=== PATIENT | male | born 1940 | race Caucasian/White ===

== ENCOUNTER 2016-09-25 09:08 | Inpatient (IN) ==
[2016-09-25] MEDS ORDERED: ONDANSETRON 4 MG/2 ML VIAL IV STA (09:48)
[2016-09-25] MEDS ORDERED: SODIUM CHLORIDE 0.9% 500 ML IV STA (09:48)
--- NOTE | 2016-09-25 10:08 | XRay Report ---
History: Abdominal pain Date: 09/25/2016 Study: Chest x-ray single view portable Comparison exam: No previous currently available There is cardiomegaly. There is no gross mediastinal mass. The pulmonary vasculature is not grossly engorged. Shallow breath. There is no gross pleural effusion. There is some mild platelike subsegmental atelectasis in the lung bases. There is no eduardo pneumonia. There is mild thoracic spondylosis. Impression: Platelike subsegmental atelectasis in the lung bases. Cardiomegaly without overt CHF PROCEDURE INTERPRETED AT [facility] DEPARTMENT OF RADIOLOGY Final Report Signed by: Dr. Ellen Borjas
[2016-09-25 10:20] LABS: Apearance,Urine CLEAR (Clear); Blood, Urine Moderate mg/dL (Negative); Glucose,Urine (UA) Negative (Negative); Ketones,Urine Negative (Negative); Mucus,Urine Occasional /LPF (Occasional); Nitrite,Urine Negative (Negative); Protein,Urine 100 MG/DL; RBC,Urine 51 /HPF (0-4); Urine Color Amber (Yellow); Urine Specific Gravity 1.019 (1.001-1.035); WBC,Urine 1 /HPF (0-6)
[2016-09-25 10:21] LABS: Bilirubin,Urine Small mg/dL (Negative)
--- NOTE | 2016-09-25 10:25 | EKG Report ---
Stationary ECG Study [facility] Test Date: 09/25/2016 10:25:52 AM Pat Name: JOHANNE CLARKE Department: Room: Gender: M Sas Bi Developer: : 1940 Requested by: James Montemayor Order Number: [id number] Reading MD: ERIC WEI Intervals [place] Rate: 109 P: 17 OK: 170 QRS: -2 QRSD: 133 T: 65 QT: 363 QTc: 427 Interpretive Statements SINUS TACHYCARDIA RIGHT BUNDLE BRANCH BLOCK Electronically Signed On 09-25-16 16:33:35 CDT by ERIC WEI [email or web address]
[2016-09-25] MEDS ORDERED: ONDANSETRON 4 MG/2 ML VIAL ONE (10:28)
[2016-09-25 10:41] LABS: Basophils % 0.2 % (0.0-0.8); Hematocrit 47.5 VOL% (42.0-52.0); Hemoglobin 15.8 GM/DL (14.0-18.0); Immature Granulocytes % 1.4 %; Immature Granulocytes Absolute 0.22 #; Lymphocytes # 0.6 10*3/uL (1.4-4.0); Mean Corpuscular HGB Conc 33.3 GM/DL (32-36); Mean Corpuscular Hemoglobin 28 PG (27-34); Mean Corpuscular Volume 84.8 FL (87-102); Mean Platelet Volume 13.6 FL (9.6-12.0); Monocytes # 0.8 10*3/uL (0.11-0.8); Monocytes % 5.4 % (1.7-12.7); Neutrophils # 13.5 10*3/uL (1.4-7.4); Platelet Count 112 T/CUMM (130-400); White Blood Count 15.2 T/CUMM (4-12)
[2016-09-25 10:59] LABS: Band Neutrophils 4 % (0-10); Hypochromasia 1+; Lymphocytes 4 % (20-55); Platelet Estimate Decreased; Segmented Neutrophils 89 % (50-85); Total Cells Counted 100
--- NOTE | 2016-09-25 11:24 | CT Report ---
History: Abdominal distention and rebound pain Date: 09/25/2016 Study: CT abdomen and pelvis without contrast Comparison exam: No previous CT abdomen and pelvis Technique: Spiral CT sections were obtained from the lung bases to the pubic symphysis without contrast. The CT exam was performed using one or more of the following dose reduction techniques: Automated exposure control, adjustment of the mA and/or kV according to patient size, or use of iterative reconstruction technique. There is some mild dependent atelectatic change in the lower lungs. There is no evidence of pneumoperitoneum. The gallbladder is surgically absent. There is a water density lobular lesion in the posterior medial aspect of the right lobe of the liver inferiorly, likely a 17 mm hepatic cyst. The liver, spleen, and bile ducts are otherwise unremarkable. There is strandy and hazy opacity in the peripancreatic fat. There is no focal pancreatic mass. There is no focal adrenal mass. There is a medium density opacity compatible with hematoma measuring 9 x 7 x 12 cm, medial to the right kidney. This displaces the right kidney laterally. This is intimately associated with the superior pole of the right kidney and also abuts the dorsal aspect of the duodenum. There is no hydronephrosis or hydroureter. There is no definite radiopaque renal or ureteral stone. There is no aneurysm of the moderately calcified abdominal aorta. The presumed retroperitoneal hemorrhage does not immediately abut the abdominal aorta. Fluid abuts the tip of the cecum. The appendix is not seen with confidence. There is medium density fluid in the pelvis to the right of the midline, likely hemorrhagic fluid, which measures up to 11 x 11 x 5 cm in maximum dimensions. This displaces the sigmoid colon to the left. The bladder is decompressed. A Marrero catheter is positioned with its balloon within the lumen of the urinary bladder. Critical test result. Findings discussed with Dr. Saleh. Impression: Retroperitoneal hemorrhage which is primarily in the right perinephric space and displaces the right kidney laterally. This could be spontaneous or related to bleeding from an occult renal lesion. Posttraumatic bleeding is another diagnostic consideration. There is some strandy and hazy opacity in the peripancreatic fat such as that which could be related to recent or current pancreatitis. Hemorrhagic pancreatitis would also be in the differential diagnosis. There is no hydronephrosis or radiopaque ureteral stone. PROCEDURE INTERPRETED AT [facility] DEPARTMENT OF RADIOLOGY Final Report Signed by: Dr. Ellen Borjas
--- NOTE | 2016-09-25 11:38 | General Surgery Consult Note ---
Assessment and Plan (1) Nontraumatic retroperitoneal hematoma Status: Acute Assessment and plan: This patient has a retroperitoneal hematoma that is adjacent to the right kidney and also a separate collection of blood in the pelvis which is extraperitoneal. This seems most likely to have come from a source in his right kidney especially with his history of a problem indicating the Dr. Silveira had seen him for this could represent hemorrhage from a lesion in the kidney that ruptured such as a cyst or hemangioma. This will probably not require any surgical intervention but the question of whether he would need to have an arteriogram to embolize any active bleeding remains to be answered. What I would suggest would be admission with bedrest and urology consultation and trend his hemoglobins. If he seems to be worsening when I think we should consider an arteriogram but his chemistry is not back yet to give us any input on his creatinine and he certainly has had decreased urine output at home and may have compromised renal function already so I think we may be able to avoid an arteriogram given that this is a retroperitoneal hematoma in my seal on its own. It is slightly further complicated by the fact that there may be an underlying renal lesion which may have bled and this might be less likely to stop bleeding without some sort of intervention but this may be further clarified by getting urologic consultation to see what his history actually is. The family is unable to provide exact details. I will continue to follow him and assist with coordinating his care but there are no plans for any surgical intervention. The patient had his gallbladder removed at [facility] in June I think is very unlikely that he is having any problems related to that given that it was 3 months ago and the findings of his CT scan. Current Visit: Yes History of Present Illness Chief complaint: Abdominal pain with bloating History of present illness: Mr. Aguilera is a 76 year old male who has been followed by Dr. Silveira at [facility] for some sort of renal lesion presents to the hospital with several days to a week of worsening abdominal pain and decreased urine output as well as bloating in the abdomen. His family brought him to the hospital today for evaluation and he was noted to have a normal hemoglobin but his white blood cell count was up at 15,000. His urine demonstrated some bilirubinuria and he was evaluated with a CT scan noncontrast which demonstrated a large retroperitoneal hematoma medial to the right kidney and also a separate hematoma down in the pelvis displacing the bladder anteriorly. There is no layering that suggested active hemorrhage. He also had some stranding changes around his pancreas. His chemistry is still pending right now. He is hemodynamically normal at this time and actually hypertensive. Home Medications Medication Instructions Recorded Confirmed Type Allopurinol 200 mg PO DAILY 09/25/16 09/25/16 History Aspirin [Aspirin EC] 81 mg PO DAILY 09/25/16 09/25/16 History Cholecalciferol [Vitamin D3] 1,000 unit PO BEDTIME 09/25/16 09/25/16 History Colchicine [Colcrys] 0.6 mg PO ONCE PRN 09/25/16 09/25/16 History Cyclobenzaprine [Flexeril] 10 mg PO BEDTIME PRN 09/25/16 09/25/16 History Diclofenac 1% Gel [Voltaren 1% Gel] 1 applic TOP QID PRN 09/25/16 09/25/16 History Dorzolamide HCl/Timolol Maleat 1 drop BOTH EYES BEDTIME 09/25/16 09/25/16 History [Dorzolamide/Timolol Oph Soln] Hydrocodone/Acetaminophen [[place] 1 each PO Q6H PRN 09/25/16 09/25/16 History 7.5-325 Tablet] Levothyroxine Tab [Synthroid Tab] 50 mcg PO DAILY 09/25/16 09/25/16 History Metoprolol Tartrate Tab [Lopressor 100 mg PO BID 09/25/16 09/25/16 History Tab] [place]-3 Fatty Acids [Fish Oil 1,000 mg PO BID 09/25/16 09/25/16 History Concentrate] Pantoprazole Tab [Protonix Tab] 40 mg PO DAILY 09/25/16 09/25/16 History Pitavastatin [Livalo] 2 mg PO BEDTIME 09/25/16 09/25/16 History Terazosin [Hytrin] 5 mg PO BEDTIME 09/25/16 09/25/16 History amLODIPine [Norvasc] 10 mg PO DAILY 09/25/16 09/25/16 History Allergies Allergy/AdvReac Type Severity Reaction Status Date / Time Penicillins Allergy RASH Verified 09/25/16 09:24 Medical,Surgical,& Family Hx - Medical History Cardio: History of: Hypertension - Surgical History Abdominal Surgeries: Surgical HX of: Cholecystectomy Orthopedic Surgeries: Surgical HX of;: Spinal Surgery (Lumbar) - Social History Smoking Status: Never smoker - Constitutional Constitutional: Present: as per HPI - EENT Nose, mouth and throat: Present: as per HPI - Cardiovascular Cardiovascular: Present: as per HPI - Respiratory Respiratory: Present: as per HPI - Gastrointestinal Gastrointestinal: Present: as per HPI - Genitourinary Genitourinary: Present: as per HPI - Musculoskeletal Musculoskeletal: Present: as per HPI - Neurological Neurological: Present: as per HPI - Endocrine Endocrine: Present: as per HPI Hematologic/Lymphatic: Present: as per HPI Exam - Constitutional Vitals: Period Temp Pulse Resp BP Sys/Philippe Pulse Ox Last 24 Hr 97.2 F-97.2 F 107-107 18-18 163-163/89-89 91 General appearance: no acute distress, over weight - Head Head exam: Present: normal inspection, normocephalic - Eye Eye exam: Present: EOMI Pupils: Present: RAÚL - ENT ENT exam: Present: normal exam Mouth exam: Present: normal external inspection, normal voice - Neck Neck exam: Present: normal inspection, trachea midline - Respiratory Respiratory exam: Present: clear to auscultation bilaterally. Absent: accessory muscle use, chest wall tenderness - Cardiovascular Cardiovascular exam: Present: tachycardia. Absent: irregular rhythm, systolic murmur - GI/Abdominal GI/Abdominal exam: Present: hypoactive bowel sounds, tenderness, soft. Absent: distended, guarding, rebound - Extremities Exam Extremities exam: Present: normal inspection, normal capillary refill - Back Exam Back exam: Present: normal inspection - Neurological Exam Neurological exam: Present: alert, oriented X3 Speech: Present: normal - Skin Skin exam: Present: normal color, warm Results - Labs CBC & BMP: 09/25/16 10:10 - Diagnostic Findings Procedure: CT Abdomen and Pelvis: image reviewed by me, report reviewed by me
[2016-09-25 11:47] LABS: Albumin 3.6 G/DL (3.4-5.0); Bilirubin,Total 11.2 MG/DL (0.2-1.0); Calcium 8.5 MG/DL (8.5-10.1); Magnesium 1.8 MG/DL (1.8-2.4); Osmolality,Calculated 274.1 MOS/KG (273-304); Potassium 4.4 MMOL/L (3.5-5.1); Total Protein 7.1 G/DL (6.4-8.3)
--- NOTE | 2016-09-25 11:56 | Emergency Department Note ---
Alexis Kee Gwan, am scribing for, and in the presence of, James Saleh MD 09:55. Therese Kee Phillip K, MD, personally performed the services described in this documentation, ascribed by Pro Espinoza in my presence, and it is both accurate and complete . Arrival - Arrival Chief Complaint: Abdominal / Flank Pain Stated Complaint: Dr. Jeronimo sent over,kidney not working,yellow ED Nursing Triage Note: Pt sent by Dr Jeronimo for Jaundice with some abd pain worse with coughing. Pt had Gallbladder surgery Dr Carlos back in Jun. Mode of Arrival: Wheelchair Limitations: No Limitations Source: Patient, Family, Old Records Reviewed, RN Notes Reviewed Time Seen by Provider: 09/25/16 09:34 - History of Present Illness HPI Narrative: Pt is 76 y/o male who presents to the ED for further evaluation. Patient was present at PCP Dr. Jeronimo for abd pain and coughing with an onset yesterday. After further evaluation pt was prompted to report to ED. Family noted that pt began N/V,had onset of abd edema, pain in lower abd, inability to void, lack of fluid intake and decreased appetite with an onset yesterday. Patient confirmed that pain is worse with movement, that he has had this pain in the past and that his last BM was 4-5 days ago. Family confirmed that pt had a Chloecystectomy 06/[address] Carlos. Patient has been followed by [facility] in the past. No other problems/complaints reported in ED. Onset (ago): day(s) Consistency: constant Severity: moderate Allergies/Adverse Reactions: Allergies Allergy/AdvReac Type Severity Reaction Status Date / Time Penicillins Allergy RASH Verified 09/25/16 09:24 Home Medications: Home Medications Medication Instructions Recorded Confirmed Type Allopurinol 200 mg PO DAILY 09/25/16 09/25/16 History Aspirin [Aspirin EC] 81 mg PO DAILY 09/25/16 09/25/16 History Cholecalciferol [Vitamin D3] 1,000 unit PO BEDTIME 09/25/16 09/25/16 History Colchicine [Colcrys] 0.6 mg PO ONCE PRN 09/25/16 09/25/16 History Cyclobenzaprine [Flexeril] 10 mg PO BEDTIME PRN 09/25/16 09/25/16 History Diclofenac 1% Gel [Voltaren 1% Gel] 1 applic TOP QID PRN 09/25/16 09/25/16 History Dorzolamide HCl/Timolol Maleat 1 drop BOTH EYES BEDTIME 09/25/16 09/25/16 History [Dorzolamide/Timolol Oph Soln] Hydrocodone/Acetaminophen [[place] 1 each PO Q6H PRN 09/25/16 09/25/16 History 7.5-325 Tablet] Levothyroxine Tab [Synthroid Tab] 50 mcg PO DAILY 09/25/16 09/25/16 History Metoprolol Tartrate Tab [Lopressor 100 mg PO BID 09/25/16 09/25/16 History Tab] [place]-3 Fatty Acids [Fish Oil 1,000 mg PO BID 09/25/16 09/25/16 History Concentrate] Pantoprazole Tab [Protonix Tab] 40 mg PO DAILY 09/25/16 09/25/16 History Pitavastatin [Livalo] 2 mg PO BEDTIME 09/25/16 09/25/16 History Terazosin [Hytrin] 5 mg PO BEDTIME 09/25/16 09/25/16 History amLODIPine [Norvasc] 10 mg PO DAILY 09/25/16 09/25/16 History Review of System - Review of System 12 point system: reviewed and no additional remarkable complaints except as stated - Review of System Constitutional: Absent: chills, fever Eyes: Absent: discharge Head/Ears/Nose/Throat: Absent: earache Respiratory: Absent: cough Cardiovascular: Absent: chest pain Gastrointestinal: Present: as per HPI, abdominal pain, nausea, vomiting. Absent : diarrhea Musculoskeletal: Absent: arm pain, back pain Medical,Surgical,& Family Hx - Medical History Cardio: History of: Hypertension - Surgical History Abdominal Surgeries: Surgical HX of: Cholecystectomy Orthopedic Surgeries: Surgical HX of;: Spinal Surgery (Lumbar) - Social History Smoking Status: Never smoker Exam Vital Signs: Vital Signs Temperature 97.2 F L 09/25/16 09:15 Pulse Rate 107 H 09/25/16 09:15 Respiratory Rate 18 09/25/16 09:15 Blood Pressure 163/89 09/25/16 09:15 O2 Sat by Pulse Oximetry 91 L 09/25/16 09:15 - General General appearance: alert, in no apparent distress - Head Head exam: Present: atraumatic, normocephalic - Eye Eye exam: Present: scleral icterus - ENT ENT exam: Present: normal oropharynx, mucous membranes moist, TM's normal bilaterally, normal external ear exam - Neck Neck exam: Present: full ROM, trachea midline. Absent: tenderness - Chest Chest inspection: Present: symmetric chest wall rise. Absent: tenderness - Respiratory Respiratory exam: Present: normal lung sounds bilaterally. Absent: respiratory distress - Cardiovascular Cardiovascular exam: Present: normal rhythm, tachycardia - Abdominal Exam Abdominal exam: Present: distention, rebound, hypoactive bowel sounds, other ( Tinkling/high pitched bowel sounds) - Extremities Exam Extremities exam: Present: full ROM - Back Exam Back exam: Present: full ROM - Neurological Exam Neurological exam: Present: alert, oriented X3, CN II-XII intact. Absent: motor sensory deficit - Psychiatric Psychiatric exam: Present: flat affect - Skin Skin exam: Present: other (Jaundice tint to skin) Course Course Narrative: Marrero catheter was placed and after trying to void, pt had 500cc of residual urine. Results - Labs CBC & BMP: 09/25/16 10:10 09/25/16 10:10 Lab Results: I have reviewed the patients labs Labs: Laboratory Tests 09/25/16 10:10 Urine pH 6.0 Ur Specific [place] 1.019 Urine Protein 100 Urine Blood Moderate Urine Bilirubin Small H Urine Urobilinogen 4.0 H Urine RBC 51 Urine WBC 1 Urine Mucus Occasional Laboratory Tests 09/25/16 09/25/16 10:10 10:10 WBC 15.2 H RBC 5.60 H Hgb 15.8 Hct 47.5 MCV 84.8 L Plt Count 112 L MPV 13.6 H Neut % (Auto) 89.0 H Lymph % (Auto) 4.0 L Neut # (Auto) 13.5 H Lymph # (Auto) 0.6 L Urine pH 6.0 Ur Specific [place] 1.019 Urine Protein 100 Urine Blood Moderate Urine Bilirubin Small H Urine Urobilinogen 4.0 H Urine RBC 51 Urine WBC 1 Urine Mucus Occasional Laboratory Tests 09/25/16 10:10 WBC 15.2 H RBC 5.60 H Hgb 15.8 Hct 47.5 MCV 84.8 L Plt Count 112 L MPV 13.6 H Neut % (Auto) 89.0 H Lymph % (Auto) 4.0 L Neut # (Auto) 13.5 H Lymph # (Auto) 0.6 L Segmented Neutrophils 89 H Lymphocytes 4 L - EKG EKG results: interpreted by ERMD, sinus rhythm (Sinus tachycardia, right bundle branch block) - Diagnostic Findings Procedure: Chest x-ray: report reviewed by me (Platelike subsegmental atelectasis in the lung bases. Cardiomegaly without overt CHF. ) Disposition Clinical Impression: Retroperitoneal hematoma, Urinary retention, Possible hemorrhagic pancreatitis Case discussed with: patient, patient's family Disposition: Still a Patient Condition: Critical Additional Instructions: Admit to ICU to the hospitalist with a surgery consult.
[2016-09-25] MEDS ORDERED: SODIUM CHLORIDE 0.9% 1,000 ML IV STA (12:02)
--- NOTE | 2016-09-25 12:56 | Hospitalist History & Physical ---
Assessment and Plan (1) Hypertension Status: Chronic Assessment and plan: Possible mild nephrosclerosis Current Visit: Yes Qualifiers: Hypertension type: essential hypertension Qualified Code(s): I10 - Essential (primary) hypertension (2) Retroperitoneal hematoma Status: Acute Assessment and plan: This appears to originate in the area of the right kidney with pelvic extension. Duration is undefined however history suggests a gradual bleeding process. This is supported by the elevated total bilirubin likely reflective of resorptive change. It is unclear at this time to what extent the AST and ALT as well as a lipase reflect mechanical effect of the hematoma in the retroperitoneum. Current Visit: Yes History of Present Illness History of present illness: Mr. Aguilera is a 76 year old male he noted the onset of abdominal pain in June. He presented to the emergency room rash. The family reports that he was told at that time he had "heart failure" (I suspect this was based on a BNP reading) and "kidney failure". He proceeded to laparoscopic cholecystectomy during that hospital stay. Apparently no cardiac workup was undertaken with the family recalls. He has had a history of some type of perinephric process which is poorly characterized by the family's description had gross hematuria several years previously and was found to have this lesion. He was told at [facility] on June hospitalization that it was larger than previously but was not a new finding or concern. It is unclear whether the patient ever resolved abdominal discomfort to any significant degree. He noticed over the last several weeks increasing levels of abdominal pain. Approximately 1 week ago he began to cough and with coughing with noticed a marked increase in the severity of abdominal pain. He developed obstipation and difficulty voiding. He felt chilled but did not take his temperature. Over the weekend he developed nausea and vomiting. Any movement caused increased abdominal discomfort. He presented to the emergency room today as the symptoms had not resolved. He denies any history of peptic ulcer disease or reflux symptomatology or melena or hematochezia. Patient uses no [id number] medications he does not list any anticoagulants on his regimen. He recalls no trauma. CT scan of his abdomen performed in the emergency department here demonstrates a apparent accumulation of blood adjacent to the right kidney with a separate collection in the dependent portion of the pelvis that distorts the sigmoid colon and likely the bladder is well. Home Medications Medication Instructions Recorded Confirmed Type Allopurinol 200 mg PO DAILY 09/25/16 09/25/16 History Aspirin [Aspirin EC] 81 mg PO DAILY 09/25/16 09/25/16 History Cholecalciferol [Vitamin D3] 1,000 unit PO BEDTIME 09/25/16 09/25/16 History Colchicine [Colcrys] 0.6 mg PO ONCE PRN 09/25/16 09/25/16 History Cyclobenzaprine [Flexeril] 10 mg PO BEDTIME PRN 09/25/16 09/25/16 History Diclofenac 1% Gel [Voltaren 1% Gel] 1 applic TOP QID PRN 09/25/16 09/25/16 History Dorzolamide HCl/Timolol Maleat 1 drop BOTH EYES BEDTIME 09/25/16 09/25/16 History [Dorzolamide/Timolol Oph Soln] Hydrocodone/Acetaminophen [[place] 1 each PO Q6H PRN 09/25/16 09/25/16 History 7.5-325 Tablet] Levothyroxine Tab [Synthroid Tab] 50 mcg PO DAILY 09/25/16 09/25/16 History Metoprolol Tartrate Tab [Lopressor 100 mg PO BID 09/25/16 09/25/16 History Tab] [place]-3 Fatty Acids [Fish Oil 1,000 mg PO BID 09/25/16 09/25/16 History Concentrate] Pantoprazole Tab [Protonix Tab] 40 mg PO DAILY 09/25/16 09/25/16 History Pitavastatin [Livalo] 2 mg PO BEDTIME 09/25/16 09/25/16 History Terazosin [Hytrin] 5 mg PO BEDTIME 09/25/16 09/25/16 History amLODIPine [Norvasc] 10 mg PO DAILY 09/25/16 09/25/16 History Allergies Allergy/AdvReac Type Severity Reaction Status Date / Time Penicillins Allergy RASH Verified 09/25/16 09:24 Medical,Surgical,& Family Hx - Medical History Cardio: History of: Hypertension (10-15 years duration) Endocrine: History of: Thyroid Disorder (Chronic thyroid replacement) Rheumatology: History of;: Gout (He is on allopurinol with as needed colchicine) Genitourinary: History of: Problems (Apparently there is a previously identified perinephric lesion) Gastrointestinal: History of: GI Problems (He denies symptoms but is on Protonix chronically) Musculoskeletal: History of: Degenerative Disk Disease - Surgical History HEENT Surgeries: Surgical HX of: Eye Surgery (Cataracts are) Abdominal Surgeries: Surgical HX of: Cholecystectomy (June 2016) Orthopedic Surgeries: Surgical HX of;: Spinal Surgery (Lumbar) - Social History Smoking Status: Never smoker Frequency of Alcohol Use: None - Constitutional Constitutional: Present: anorexia, chills. Absent: fever(s) - Cardiovascular Cardiovascular: Absent: chest pain at rest, chest pain with activity, dyspnea, dyspnea on exertion, edema, palpitations - Respiratory Respiratory: Present: cough. Absent: dyspnea, wheezing - Gastrointestinal Gastrointestinal: Present: abdominal pain, bloating, constipation, nausea. Absent: dyspepsia, dysphagia, heartburn, hematemesis, hematochezia, melena - Genitourinary Genitourinary: Present: difficulty urinating - Musculoskeletal Musculoskeletal: Present: back pain - Neurological Neurological: Present: confusion, convulsions. Absent: syncope Exam - Constitutional General appearance: normal weight, mild distress - Neck Neck exam: Absent: lymphadenopathy, thyromegaly - Respiratory Respiratory exam: Present: clear to auscultation bilaterally. Absent: rales, rhonchi, wheezes - Cardiovascular Cardiovascular exam: Present: carotid bruit (Right carotid), gallop (S4), regular rate and rhythm - GI/Abdominal GI/Abdominal exam: Present: hypoactive bowel sounds, tenderness (Left lower quadrant), other (No intra-abdominal bruits are noted). Absent: ascites, distended, organomegaly - Extremities Exam Extremities exam: Absent: edema - Neurological Exam Neurological exam: Present: alert, oriented X3 Results - Labs CBC & BMP: 09/25/16 10:10 09/25/16 10:10 Labs: Total bilirubin 11.2 AST 162/ALT 167 Lipase 36,160 Urinalysis positive red blood cell, protein 100. and urobilinogen 4.0 - Impressions Sinus rhythm with sinus tachycardia right bundle branch block pattern - Diagnostic Findings Procedure: Chest x-ray: image reviewed by me (Low volume with linear atelectasis left greater than right), CT Abdomen and Pelvis: report reviewed by me (Perinephric and pelvic hematoma)
[2016-09-25] MEDS ORDERED: ONDANSETRON 4 MG/2 ML VIAL IV PRN (13:09)
[2016-09-25] MEDS ORDERED: MORPHINE 2 MG/1 ML SYRINGE IV PRN ×2 (13:20→13:25)
[2016-09-25] MEDS: SODIUM CHLORIDE 0.9% 1,000 ML IV SCH ×2 (13:45→20:55)
[2016-09-25] MEDS: PANTOPRAZOLE 40 MG VIAL IV SCH ×2 (14:54→20:47)
[2016-09-25] MEDS: PROPRANOLOL 1 MG/1 ML VIAL IV SCH ×2 (14:54→20:47)
[2016-09-25 15:49] LABS: INR 1.2; PT Patient Result 13.3 SECS; Partial Thromboplastin Time 29.2 SECS (0-40)
--- NOTE | 2016-09-25 16:02 | Event Note ---
The patient did have a lipase of 36,000 and his bilirubin came back at 11 with a direct bilirubin of over 5. It is unclear what exactly his surgical history was at [facility] in June of this year but because of these lab values of come back and some stranding around his pancreas is definitely possible, although the appearance is atypical on the CT scan, but this could be some evidence of hemorrhagic pancreatitis. Patient is having some increased tachycardia and tachypnea. We will get GI consultation in case of the need for an ERCP but I think for now the best thing to do is just continue IV fluid resuscitation and pain control and monitor his resuscitation repeat his labs tomorrow. I will also attempt to get records from [facility] about the details of his hospitalization and his cholecystectomy. It certainly possible there could be a retained stone causing the bile duct to be obstructed and also obstructing the pancreatic duct although there is no ductal dilation on his CT scan that I can see. He will need to be watched closely in ICU and resuscitated.
[2016-09-25] MEDS ORDERED: ENALAPRIL 2.5 MG/2 ML VIAL IV PRN (16:29)
[2016-09-25] MEDS: cloNIDine 0.3 MG/24 HR PATCH TRANSDERM SCH (17:27)
[2016-09-25 17:59] LABS: Allen Test Positive; Pt O2 Delivery Device Venturi Mask
[2016-09-25 18:00] LABS: ABG Base Excess -2.2 MMOL/L (-2.5-2.5); ABG HCO3 22.5 MMOL/L (20-26); ABG Oxygen Saturation 94.9 % (95-100); ABG PCO2 35.3 MM HG (35-48); ABG PH 7.401 (7.35-7.45); ABG PO2 77.4 MM HG (80-95)
--- NOTE | 2016-09-25 19:02 | Gastrointestinal Consult Note ---
Assessment and Plan (1) Acute pancreatitis Status: Acute Assessment and plan: Ill-appearing patient with jaundice and evidence of acute pancreatitis. Does not have biliary dilatation on CT but concern would be common bile duct stone precipitating this. Would add IV quinolone with suggestion of possible pancreatic necrosis (patient allergic to penicillin). Discussed with patient and his family. ERCP would be recommended in this setting and would probably do within the next 24 hours if clinical picture does not change. I did discuss the procedure with him and family including potential risks and benefits including worsening of pancreatitis. Current Visit: Yes History of Present Illness Chief complaint: Abdominal pain History of present illness: Mr. Aguilera is a 76 year old male admitted with complaint of upper abdominal pain and nausea increased in the last couple of days. He is a poor historian but states that he has had some upper abdominal pain and generally has felt bad for around 2 weeks. On admission, patient is noted to have serum lipase above 30,000 with elevated liver tests including total bilirubin 11. He had laparoscopic cholecystectomy around 3 months ago at [facility] and per verbal report did have some elevated liver test around the time of that surgery. We do not have those records as yet to review. Patient states that his weight has been stable. CT abdomen is reviewed which is a noncontrast study due to renal insufficiency. Patient states that he has had some chills in the last 24 hours. Urine has been dark the last day or 2. Home Medications Medication Instructions Recorded Confirmed Type Allopurinol 200 mg PO DAILY 09/25/16 09/25/16 History Aspirin [Aspirin EC] 81 mg PO DAILY 09/25/16 09/25/16 History Cholecalciferol [Vitamin D3] 1,000 unit PO BEDTIME 09/25/16 09/25/16 History Colchicine [Colcrys] 0.6 mg PO Q6H PRN 09/25/16 09/25/16 History Cyclobenzaprine [Flexeril] 10 mg PO BEDTIME PRN 09/25/16 09/25/16 History Diclofenac 1% Gel [Voltaren 1% Gel] 1 applic TOP QID PRN 09/25/16 09/25/16 History Dorzolamide HCl/Timolol Maleat 1 drop BOTH EYES BEDTIME 09/25/16 09/25/16 History [Dorzolamide/Timolol Oph Soln] Hydrocodone/Acetaminophen [[place] 1 each PO Q6H PRN 09/25/16 09/25/16 History 7.5-325 Tablet] Levothyroxine Tab [Synthroid Tab] 50 mcg PO DAILY 09/25/16 09/25/16 History Metoprolol Tartrate Tab [Lopressor 100 mg PO BID 09/25/16 09/25/16 History Tab] [place]-3 Fatty Acids [Fish Oil 1,000 mg PO BID 09/25/16 09/25/16 History Concentrate] Pantoprazole Tab [Protonix Tab] 40 mg PO DAILY 09/25/16 09/25/16 History Pitavastatin [Livalo] 2 mg PO BEDTIME 09/25/16 09/25/16 History Terazosin [Hytrin] 5 mg PO BEDTIME 09/25/16 09/25/16 History amLODIPine [Norvasc] 10 mg PO DAILY 09/25/16 09/25/16 History Allergies Allergy/AdvReac Type Severity Reaction Status Date / Time Penicillins Allergy RASH Verified 09/25/16 09:24 Medical,Surgical,& Family Hx - Medical History Cardio: History of: Hypertension (10-15 years duration) HEENT: History of: Glaucoma Endocrine: History of: Dyslipidemia, Thyroid Disorder (Chronic thyroid replacement) Rheumatology: History of;: Gout (He is on allopurinol with as needed colchicine) Genitourinary: History of: Problems (Apparently there is a previously identified perinephric lesion) Gastrointestinal: History of: GI Problems (He denies symptoms but is on Protonix chronically) Musculoskeletal: History of: Degenerative Disk Disease Hematology: History of: Blood Disorders (DVT (5+ years ago)) - Surgical History Cardiac Surgeries: Patient Denies: Cardiac Catheterization HEENT Surgeries: Surgical HX of: Eye Surgery (Cataracts are) Abdominal Surgeries: Surgical HX of: Cholecystectomy (June 2016) Reproductive Surgeries: Patient denies;: Genitourinary Surgery Orthopedic Surgeries: Surgical HX of;: Spinal Surgery (Lumbar) - Family History Family History: Reports;: Family Cancer (sister(colon), mother(liver)), Family Hypertension (mother, father) - Social History Smoking Status: Never smoker Frequency of Alcohol Use: None Type of Drug Use: None - Constitutional Constitutional: Present: fatigue. Absent: fever(s), weight loss - EENT Nose, mouth and throat: Absent: dysphagia, epistaxis - Cardiovascular Cardiovascular: Absent: diaphoresis, dyspnea - Respiratory Respiratory: Present: cough - Gastrointestinal Gastrointestinal: Present: as per HPI - Genitourinary Genitourinary: Absent: flank pain, hematuria - Neurological Neurological: Absent: abnormal speech, focal weakness Exam - Constitutional Vitals: Period Temp Pulse Resp BP Sys/Philippe Pulse Ox Last 24 Hr 100.6 F-102.0 F 110-119 24-36 130-196/61-115 90-94 General appearance: over weight (Elderly male awake, appears ill) - Head Head exam: Present: normocephalic, atraumatic - Eye Eye exam: Present: scleral icterus - Respiratory Respiratory exam: Present: clear to auscultation bilaterally - Cardiovascular Cardiovascular exam: Present: regular rate and rhythm, tachycardia - GI/Abdominal GI/Abdominal exam: Present: distended, hypoactive bowel sounds, tenderness ( Moderate upper abdominal tenderness), soft - Extremities Exam Extremities exam: Absent: calf tenderness, edema - Neurological Exam Neurological exam: Present: alert, oriented X3, CN II-XII intact. Absent: motor sensory deficit Results - Labs CBC & BMP: 09/25/16 15:18 09/25/16 10:10 Lab Results: I have reviewed the past 24 hour labs Quality Measures - VTE Contraindication to Pharmacological VTE Prophylaxis: Active Bleeding
[2016-09-25] MEDS: CIPROFLOXACIN INJ 400 MG in PREMIX 1 EACH IV SCH (20:44)
[2016-09-25] MEDS: PITAVASTATIN 2 MG TABLET PO SCH (20:52)
[2016-09-25] MEDS: DORZOLAMIDE/TIMOLOL OPH SOLN 10 ML BOTTLE BOTH EYES SCH (20:54)
[2016-09-26] MEDS: PROPRANOLOL 1 MG/1 ML VIAL IV SCH ×4 (02:18→21:18)
[2016-09-26 03:27] LABS: ABG HCO3 21.9 MMOL/L (20-26); ABG Oxygen Saturation 95.5 % (95-100); ABG PCO2 39.4 MM HG (35-48); ABG PH 7.359 (7.35-7.45); ABG PO2 82.7 MM HG (80-95); ABG TCO2 19.6 MMOL/L (23-27); Allen Test Positive; Pt O2 Delivery Device Venturi Mask
[2016-09-26 04:55] LABS: Basophils % 0.1 % (0.0-0.8); Hematocrit 39.8 VOL% (42.0-52.0); Hemoglobin 12.8 GM/DL (14.0-18.0); Immature Granulocytes Absolute 0.12 #; Lymphocytes # 0.7 10*3/uL (1.4-4.0); Lymphocytes % 5.4 % (21.2-54.2); Mean Corpuscular HGB Conc 32.2 GM/DL (32-36); Mean Corpuscular Hemoglobin 28 PG (27-34); Mean Corpuscular Volume 86.3 FL (87-102); Mean Platelet Volume 13.4 FL (9.6-12.0); Monocytes # 0.7 10*3/uL (0.11-0.8); Monocytes % 5.9 % (1.7-12.7); Neutrophils # 10.5 10*3/uL (1.4-7.4); Neutrophils % 87.6 % (38.7-73.9); Platelet Count 98 T/CUMM (130-400); Red Blood Count 4.61 MC/CUMM (3.8-5.5); Red Cell Distribution Width 15.5 % (9.3-17.3)
[2016-09-26 05:33] LABS: Albumin 2.6 G/DL (3.4-5.0); Calcium 7.4 MG/DL (8.5-10.1); Osmolality,Calculated 279.7 MOS/KG (273-304); Potassium 4.1 MMOL/L (3.5-5.1); Total Protein 5.4 G/DL (6.4-8.3)
[2016-09-26 05:36] LABS: Bilirubin,Direct 3.3 MG/DL (0.0-0.20)
[2016-09-26 05:41] LABS: Band Neutrophils 8 % (0-10); Hypochromasia 1+; Lymphocytes 4 % (20-55); Platelet Estimate Decreased; Segmented Neutrophils 84 % (50-85); Total Cells Counted 100
[2016-09-26] MEDS: SODIUM CHLORIDE 0.9% 1,000 ML IV SCH ×5 (06:25→21:34)
[2016-09-26] MEDS: CIPROFLOXACIN INJ 400 MG in PREMIX 1 EACH IV SCH ×2 (06:50→21:17)
--- NOTE | 2016-09-26 07:36 | XRay Report ---
Referring Physician: Nicholas James Exam: XR chest 1V portable Date: September 26, 2016 at 3:14 AM Reason: Respiratory distress Comparison: Chest one view portable September 25, 2016 Findings: The cardiac silhouette is again enlarged. There are scattered opacities within both lower lung zones. This is most consistent with atelectasis and likely pulmonary edema. Pneumonia is felt less likely but is not excluded. No pneumothorax is identified, but there is mild bilateral pleural fluid. The osseous structures appear stable. Impression: There is slight increased atelectasis and pleural fluid at both lower lung zones. PROCEDURE INTERPRETED AT [facility] DEPARTMENT OF RADIOLOGY Final Report Signed by: Dr. Ester Gonzales
--- NOTE | 2016-09-26 08:59 | General Surgery Progress Note ---
Assessment and Plan (1) Nontraumatic retroperitoneal hematoma Status: Acute Assessment and plan: This patient is improving but has ongoing pancreatitis and elevated bilirubin. Dr. Borjas is seen him and plans for potential ERCP today. Certainly seems concerning for retained stone given the history that was discovered from his previous hospital stay and this should be resolved with ERCP. In regards to his pancreatitis, we will continue bowel rest and IV fluids and supportive care. Current Visit: Yes Subjective Patient reports: Present: no new complaints, feels better, still having pain, pain is less, afebrile Narrative: The patient had an uneventful night last night. His urine output is adequate and his creatinine is improving. His lipase is down to around 13,000 from 36, 000 yesterday. He has been seen by Dr. Borjas and potentially scheduled for ERCP today. His bilirubin is still elevated at 6 and it is about half direct with a level of 3. He is still tachypneic and tachycardic but did not require intubation overnight. I did find out further details of his hospital stay at [place] in June. The patient was admitted with some LFT abnormalities with an elevated bilirubin and alkaline phosphatase and he was taken to the operating room for laparoscopic cholecystectomy but no cholangiogram was performed. His LFTs did not totally normalized postoperatively but they did trend down near normal. There is no mention of a ERCP in the discharge summary or the hospital chart. Exam - Constitutional Vitals: Period Temp Pulse Resp BP Sys/Philippe Pulse Ox Last 24 Hr 99.0 F-102.0 F 95-119 23-36 116-196/58-115 90-95 General appearance: no acute distress, over weight - Head Head exam: Present: normal inspection, normocephalic - Eye Eye exam: Present: EOMI Pupils: Present: RAÚL - ENT ENT exam: Present: normal exam Mouth exam: Present: normal external inspection, normal voice - Neck Neck exam: Present: normal inspection, trachea midline - Respiratory Respiratory exam: Present: clear to auscultation bilaterally. Absent: accessory muscle use, chest wall tenderness - Cardiovascular Cardiovascular exam: Present: tachycardia. Absent: irregular rhythm, systolic murmur - GI/Abdominal GI/Abdominal exam: Present: soft. Absent: tenderness, rebound - Extremities Exam Extremities exam: Present: normal inspection, normal capillary refill - Back Exam Back exam: Present: normal inspection - Neurological Exam Neurological exam: Present: alert, oriented X3 Speech: Present: normal - Skin Skin exam: Present: normal color, warm Results - Labs CBC & BMP: 09/26/16 04:27 09/26/16 04:26 Quality Measures - VTE Contraindication to Pharmacological VTE Prophylaxis: Active Bleeding
[2016-09-26] MEDS: PANTOPRAZOLE 40 MG VIAL IV SCH ×2 (09:01→21:19)
[2016-09-26 11:23] LABS: INR 1.1
--- NOTE | 2016-09-26 12:29 | Hospitalist Progress Note ---
Assessment and Plan (1) Jaundice Status: Acute Assessment and plan: I agree with Dr. James that the most likely explanation for elevated bilirubin and pancreatitis is retained biliary stone. Dr. Borjas was considering ERCP today. We will continue with IV antibiotics. Current Visit: Yes (2) Nontraumatic retroperitoneal hematoma Status: Acute Current Visit: Yes (3) Acute pancreatitis Status: Acute Current Visit: Yes Hospitalist: Subjective Interval history: The patient had no new events overnight. Oxygenation and hemodynamics are somewhat improved today. The patient has less abdominal pain. Bilirubin is improving lipase is improving. I updated the family at the bedside today. I coordinated care with Dr. Jacob Borjas. Exam - Constitutional Vitals: Period Temp Pulse Resp BP Sys/Phiilppe Pulse Ox Last 24 Hr 99.0 F-102.0 F 88-119 22-36 116-196/52-115 90-96 Exam: Constitutional System: Mild distress. No tremulousness. Head: Normocephalic, atraumatic. Ears, Nose and Throat System: No evidence of Otitis or Mastoiditis. No epistaxis or discharge Eyes System: Pupils equal, round, and reactive. Extraocular muscles intact. Neck: Supple, without adenopathy, No jugular venous distention. No thyromegaly , neck mass, or prior surgery apparent. Respiratory System: Chest clear to auscultation. Cardiovascular System: Heart with regular tachycardic rate and rhythm. No murmur. GI System: Abdomen soft, distended, moderately tender without guarding. Hypo- active bowel sounds present. Musculoskeletal System: limbs with trace pedal edema. Full distal pulses. Neurological System: No discernable sensory deficit. No aphasia Psychiatric System: Conversation is rational Results - Labs CBC & BMP: 09/26/16 04:27 09/26/16 04:26 Lab Results: I have reviewed the past 24 hour labs Quality Measures - VTE Contraindication to Pharmacological VTE Prophylaxis: Active Bleeding
--- NOTE | 2016-09-26 13:34 | History and Physical Update ---
History and Physical Update - History and Physical H&P was reviewed, the patient examined and there: are no changes in the patients condition since last H&P was completed. - Physical Exam Mental Status: alert and oriented Heart: regular rate and rhythm Lung: clear to auscultation Abdomen: within normal limits Vitals: within normal limits
--- NOTE | 2016-09-26 14:50 | Operative Note ---
Date of procedure: 09/26/16 Pre-op diagnosis: Jaundice, pancreatitis Procedure: Procedure: Endoscopic retrograde cholangiopancreatography with common bile duct sphincterotomy and common bile duct sludge removal Brief clinical abstract: Patient is a 76-year-old male admitted with clinically severe pancreatitis. He has had elevated liver tests with total bilirubin yesterday 11 and down to 6 today. He had cholecystectomy around 3 months ago. Procedure findings: After informed consent was obtained, patient was placed in the prone position. Therapeutic video duodenoscope was inserted into the upper esophagus in blind fashion with no resistance encountered. Esophageal mucosa appeared normal. Stomach was examined including retroflexed view of the cardia and fundus with no abnormality seen. The pyloric channel, duodenal bulb, second and third portion of the duodenum appeared normal. Ampulla was visualized and the ampullary opening was somewhat erythematous which could suggest recently passed stone. Sphincterotome was used and initially pancreatogram obtained. Head neck and body were opacified with no abnormality seen. I intentionally did not further fill the pancreatic duct. The endoscope was repositioned. Common bile duct was deeply cannulated with sphincterotome using 0.035 inch guidewire. Biliary tree was filled with contrast. Biliary tree was of normal caliber with common bile duct/common hepatic duct maximally dilated to around 6 mm. There initially appeared to be a small opacity in the distal common bile duct under fluoroscopy. There was evidence of previous cholecystectomy with cystic duct clips in place. No bile leak was noted. Common bile duct sphincterotomy was performed over guidewire to approximately 1 cm diameter. Sphincterotome was removed and occlusion balloon was advanced over the wire into the proximal common hepatic duct. Balloon was inflated to 8 mm diameter and dragged distally into the duodenum with 4 separate passes made. There were some sludge fragments noted that passed into the duodenum. I repeated an occlusion cholangiogram afterwards and there were no visible abnormality seen. Impression: #1 choledocholithiasis (common bile duct sludge)-status post endoscopic removal #2 otherwise normal ERCP Recommendations: Continue IV antibiotics with ICU support for now. Anesthesia: GETA Surgeon / Physician: Abdoulaye Borjas Estimated blood loss: none Specimens: none sent Condition: stable Disposition: post procedure unit Results - Labs CBC & BMP: 09/26/16 04:27 09/26/16 04:26 Discharge Plan - Discharge Medications No Action amLODIPine [Norvasc] 10 mg PO DAILY Cholecalciferol [Vitamin D3] 1,000 unit PO BEDTIME Colchicine [Colcrys] 0.6 mg PO Q6H PRN PRN Reason: Gout Diclofenac 1% Gel [Voltaren 1% Gel] 1 applic TOP QID PRN PRN Reason: KNEE Cyclobenzaprine [Flexeril] 10 mg PO BEDTIME PRN PRN Reason: Pain Terazosin [Hytrin] 5 mg PO BEDTIME Pantoprazole Tab [Protonix Tab] 40 mg PO DAILY Levothyroxine Tab [Synthroid Tab] 50 mcg PO DAILY Pitavastatin [Livalo] 2 mg PO BEDTIME [place]-3 Fatty Acids [Fish Oil Concentrate] 1,000 mg PO BID Aspirin [Aspirin EC] 81 mg PO DAILY Allopurinol 200 mg PO DAILY Dorzolamide HCl/Timolol Maleat [Dorzolamide/Timolol Oph Soln] 1 drop BOTH EYES BEDTIME Hydrocodone/Acetaminophen [[place] 7.5-325 Tablet] 1 each PO Q6H PRN PRN Reason: Pain Metoprolol Tartrate Tab [Lopressor Tab] 100 mg PO BID - Follow Up or Referral - Forms/Instructions
[2016-09-26] MEDS ORDERED: PROPOFOL 1,000 MG/100 ML BOTTLE IV ONE (15:32)
[2016-09-26] MEDS ORDERED: PROPOFOL 1,000 MG/100 ML BOTTLE IV SCH (16:00)
[2016-09-26 16:05] LABS: ABG Base Excess -4.9 MMOL/L (-2.5-2.5); ABG HCO3 22.4 MMOL/L (20-26); ABG Oxygen Saturation 98.3 % (95-100); ABG PCO2 50.8 MM HG (35-48); ABG PH 7.263 (7.35-7.45); ABG PO2 142.2 MM HG (80-95)
--- NOTE | 2016-09-26 16:48 | Pulmonology Consult Note ---
Assessment and Plan (1) Acute respiratory failure Status: Acute Assessment and plan: ABGs show a persistent respiratory acidosis despite mechanical ventilation. I have adjusted the ventilator settings. May need to diurese. Difficult to tell whether he has a factor of congestive heart failure involved. Will get echocardiogram and BNP Current Visit: Yes (2) Nontraumatic retroperitoneal hematoma Status: Acute Assessment and plan: He was found to have some blood in the retroperitoneal space the etiology of which is not clear but suggested to be from a kidney. Current Visit: Yes (3) Acute pancreatitis Status: Acute Assessment and plan: Markedly elevated lipase. Elevated bilirubin. He has had an ERCP as this was suspected to be secondary to gallstone pancreatitis. Current Visit: Yes (4) Jaundice Status: Acute Assessment and plan: Bilirubin was 6 yesterday. Current Visit: Yes History of Present Illness Chief complaint: Respiratory failure History of present illness: Mr. Aguilera is a 76 year old male came in with a retroperitoneal hematoma and was found to have elevated bilirubin and markedly elevated lipase. [place] to have acute pancreatitis and likely to have a retained stone as he had a laparoscopic cholecystectomy 3 months ago. He had an ERCP earlier today with removal of some sludge. After the procedure he had some respiratory distress and had to be reintubated by anesthesia. He is presently on the ventilator in the ICU sedated. I am unable to get any further history from him most of the history is obtained from the chart. He is said to have had congestive heart failure in the past. Also kidney failure. Details of that are pending. He was felt about a lesion on his kidney that may have bled. He has long-term hypertension. Is a non-smoker no history of COPD. Home Medications Medication Instructions Recorded Confirmed Type Allopurinol 200 mg PO DAILY 09/25/16 09/25/16 History Aspirin [Aspirin EC] 81 mg PO DAILY 09/25/16 09/25/16 History Cholecalciferol [Vitamin D3] 1,000 unit PO BEDTIME 09/25/16 09/25/16 History Colchicine [Colcrys] 0.6 mg PO Q6H PRN 09/25/16 09/25/16 History Cyclobenzaprine [Flexeril] 10 mg PO BEDTIME PRN 09/25/16 09/25/16 History Diclofenac 1% Gel [Voltaren 1% Gel] 1 applic TOP QID PRN 09/25/16 09/25/16 History Dorzolamide HCl/Timolol Maleat 1 drop BOTH EYES BEDTIME 09/25/16 09/25/16 History [Dorzolamide/Timolol Oph Soln] Hydrocodone/Acetaminophen [[place] 1 each PO Q6H PRN 09/25/16 09/25/16 History 7.5-325 Tablet] Levothyroxine Tab [Synthroid Tab] 50 mcg PO DAILY 09/25/16 09/25/16 History Metoprolol Tartrate Tab [Lopressor 100 mg PO BID 09/25/16 09/25/16 History Tab] [place]-3 Fatty Acids [Fish Oil 1,000 mg PO BID 09/25/16 09/25/16 History Concentrate] Pantoprazole Tab [Protonix Tab] 40 mg PO DAILY 09/25/16 09/25/16 History Pitavastatin [Livalo] 2 mg PO BEDTIME 09/25/16 09/25/16 History Terazosin [Hytrin] 5 mg PO BEDTIME 09/25/16 09/25/16 History amLODIPine [Norvasc] 10 mg PO DAILY 09/25/16 09/25/16 History Allergies Allergy/AdvReac Type Severity Reaction Status Date / Time Penicillins Allergy RASH Verified 09/25/16 09:24 ROS unobtainable: due to endotracheal tube Exam (Pulmonay) H&P - Constitutional Vitals: Period Temp Pulse Resp BP Sys/Philippe Pulse Ox Last 24 Hr 99.0 F-100.4 F 86-116 10-36 105-196/52-115 90-98 Exam: Vital signs normal. Systolic blood pressure 105. Weight 105 kg. Pupils are small but reactive. Orotracheal tube in place. Neck supple no bruits. Chest reveals some bilateral rhonchi and crackles. Heart normal rate rhythm no murmurs no rubs or gallops. Abdomen somewhat protuberant no masses. Decreased bowel sounds. He is sedated so I cannot determine tenderness. Extremities no clubbing or cyanosis. He has a trace of peripheral edema. Medical,Surgical,& Family Hx - Medical History Cardio: History of: Hypertension (10-15 years duration) Neurology: No history of: Seizures HEENT: History of: Glaucoma Endocrine: History of: Dyslipidemia, Thyroid Disorder (Chronic thyroid replacement) Rheumatology: History of;: Gout (He is on allopurinol with as needed colchicine) Genitourinary: History of: Problems (Apparently there is a previously identified perinephric lesion) Gastrointestinal: History of: GI Problems (He denies symptoms but is on Protonix chronically) Musculoskeletal: History of: Degenerative Disk Disease Hematology: History of: Blood Disorders (DVT (5+ years ago)) - Surgical History Cardiac Surgeries: Patient Denies: Cardiac Catheterization HEENT Surgeries: Surgical HX of: Eye Surgery (Cataracts are) Abdominal Surgeries: Surgical HX of: Cholecystectomy (June 2016) Reproductive Surgeries: Patient denies;: Genitourinary Surgery Orthopedic Surgeries: Surgical HX of;: Spinal Surgery (Lumbar) - Family History Family History: Reports;: Family Cancer (sister(colon), mother(liver)), Family Hypertension (mother, father) - Social History Smoking Status: Never smoker Frequency of Alcohol Use: None Type of Drug Use: None Results - Labs CBC & BMP: 09/26/16 04:27 09/26/16 04:26 Lab Results: I have reviewed the past 24 hour labs - Diagnostic Findings Procedure: Chest x-ray: image reviewed by me (Small lungs. Borderline cardiomegaly. Bibasilar interstitial infiltrates with linear atelectasis at the left base. This was done yesterday. Need chest x-ray today post intubation.) Quality Measures - VTE Contraindication to Pharmacological VTE Prophylaxis: Active Bleeding
--- NOTE | 2016-09-26 17:08 | XRay Report ---
Exam: XR chest 1V portable Indication: Intubated Comparison study: 09/26/2016 chest radiograph at 3:18 AM Findings: Endotracheal tube is now noted in place and terminates approximately 4 cm from the evaristo. Low lung volumes are noted with probable basilar atelectasis and/or infiltrates. Cardiac silhouette is enlarged, similar prior. There is no pneumothorax. Osseous structures are stable.. Impression: Cardiomegaly with interval intubation. Basilar opacities likely representing atelectasis or infiltrates appear slightly improved from prior. PROCEDURE INTERPRETED AT [facility] DEPARTMENT OF RADIOLOGY Final Report Signed by: Loki Ayala
[2016-09-26 17:47] LABS: ABG Base Excess -3.2 MMOL/L (-2.5-2.5); ABG HCO3 21.8 MMOL/L (20-26); ABG Oxygen Saturation 97.3 % (95-100); ABG PCO2 35.3 MM HG (35-48); ABG PH 7.387 (7.35-7.45); ABG PO2 94.5 MM HG (80-95); ABG TCO2 18.9 MMOL/L (23-27); Allen Test Positive; Pt O2 Delivery Device Ventilator
[2016-09-26] MEDS ORDERED: SODIUM CHLORIDE 0.9% 500 ML IV ONE (18:00)
[2016-09-26] MEDS: PITAVASTATIN 2 MG TABLET PO SCH (20:49)
[2016-09-26] MEDS ORDERED: SODIUM CHLORIDE 0.9% 1,000 ML IV ONE (20:50)
[2016-09-26] MEDS: DORZOLAMIDE/TIMOLOL OPH SOLN 10 ML BOTTLE BOTH EYES SCH (21:24)
[2016-09-27] MEDS: SODIUM CHLORIDE 0.9% 1,000 ML IV SCH ×5 (00:40→21:42)
[2016-09-27] MEDS: PROPRANOLOL 1 MG/1 ML VIAL IV SCH ×4 (01:48→20:12)
[2016-09-27 03:02] LABS: ABG Base Excess -3.9 MMOL/L (-2.5-2.5); ABG HCO3 21.2 MMOL/L (20-26); ABG Oxygen Saturation 98.6 % (95-100); ABG PCO2 32.3 MM HG (35-48); ABG PH 7.401 (7.35-7.45); Allen Test Positive; Pt O2 Delivery Device Ventilator
--- NOTE | 2016-09-27 06:18 | Pulmonology Progress Note ---
Pulmonary - PN: Subj Interval history: This 76-year-old white male has pancreatitis. He had an ERCP yesterday. He has been on the ventilator overnight. He does have some bilateral atelectasis and small pleural effusions. He has required a good bit of fluid to keep his urine output up. ABGs look good this morning on 70% oxygen. Patient does not have any known significant underlying lung disease. He is responsive on low- dose propofol. Hopefully we can get him extubated this morning. Exam (Progress Note) - Constitutional Vitals: Period Temp Pulse Resp BP Sys/Philippe Pulse Ox Last 24 Hr 98.8 F-99.8 F 70-103 10-29 99-159/52-94 91-99 Exam: Patient is responsive vital signs are normal. Pupils react to light. Orotracheal tube in place. Neck supple no bruits. Chest reveals bilateral crackles and rhonchi. Heart normal rate rhythm no murmurs abdomen somewhat protuberant mildly tender bowel sounds decreased but present. Extremities no clubbing cyanosis. Trace of edema. Calves nontender. Results - Labs CBC & BMP: 09/26/16 04:27 09/26/16 04:26 Lab Results: I have reviewed the past 24 hour labs - Diagnostic Findings Procedure: Chest x-ray: image reviewed by me (ET tube good position. Bibasilar atelectasis. Probable small pleural effusions bilaterally.) Assessment and Plan (1) Acute respiratory failure Status: Acute Assessment and plan: ABGs show a persistent respiratory acidosis despite mechanical ventilation. I have adjusted the ventilator settings. May need to diurese. Difficult to tell whether he has a factor of congestive heart failure involved. Will get echocardiogram and BNP 09/27/2016 ABGs improved. PO2 143 on 70% with 5 of PEEP. Patient appears alert and responsive. Will try on CPAP this morning and see if we can get him extubated. Current Visit: Yes (2) Nontraumatic retroperitoneal hematoma Status: Acute Assessment and plan: He was found to have some blood in the retroperitoneal space the etiology of which is not clear but suggested to be from a kidney. 09/27/2016 defer to surgery. Current Visit: Yes (3) Acute pancreatitis Status: Acute Assessment and plan: Markedly elevated lipase. Elevated bilirubin. He has had an ERCP as this was suspected to be secondary to gallstone pancreatitis. 09/27/2016 does not appear to be having severe pain. Watch for pulmonary complications such as pulmonary edema from fluid replacement or ARDS. Current Visit: Yes (4) Jaundice Status: Acute Assessment and plan: Bilirubin was 6 yesterday. Current Visit: Yes
[2016-09-27 06:38] LABS: Basophils % 0.2 % (0.0-0.8); Eosinophils # 0.1 10*3/uL (0.0-0.87); Eosinophils % 0.7 % (0.00-10.9); Hematocrit 33.3 VOL% (42.0-52.0); Immature Granulocytes % 0.8 %; Immature Granulocytes Absolute 0.08 #; Lymphocytes # 0.6 10*3/uL (1.4-4.0); Lymphocytes % 6.1 % (21.2-54.2); Mean Corpuscular HGB Conc 32.4 GM/DL (32-36); Mean Corpuscular Hemoglobin 28 PG (27-34); Mean Corpuscular Volume 86.5 FL (87-102); Mean Platelet Volume 13.4 FL (9.6-12.0); Monocytes # 0.7 10*3/uL (0.11-0.8); Monocytes % 6.9 % (1.7-12.7); Neutrophils % 85.3 % (38.7-73.9); Platelet Count 97 T/CUMM (130-400); Red Blood Count 3.85 MC/CUMM (3.8-5.5); Red Cell Distribution Width 15.7 % (9.3-17.3); White Blood Count 10.5 T/CUMM (4-12)
[2016-09-27 06:39] LABS: Hemoglobin 10.8 GM/DL (14.0-18.0)
[2016-09-27 06:42] LABS: Albumin 2.1 G/DL (3.4-5.0); Bilirubin,Total 4.8 MG/DL (0.2-1.0); Osmolality,Calculated 289.3 MOS/KG (273-304); Potassium 4.1 MMOL/L (3.5-5.1); Total Protein 4.6 G/DL (6.4-8.3)
[2016-09-27 07:03] LABS: Band Neutrophils 6 % (0-10); Hypochromasia 1+; Lymphocytes 5 % (20-55); Platelet Estimate Decreased; Segmented Neutrophils 88 % (50-85); Total Cells Counted 100
[2016-09-27 07:40] LABS: ABG Base Excess -4.8 MMOL/L (-2.5-2.5); ABG HCO3 19.6 MMOL/L (20-26); ABG Oxygen Saturation 96.6 % (95-100); ABG PH 7.378 (7.35-7.45); ABG TCO2 20.6 MMOL/L (23-27)
--- NOTE | 2016-09-27 07:57 | XRay Report ---
Referring Physician: Augustus Marino MD Exam: XR chest 1V portable Date: September 27, 2016 at 2:59 AM Reason: On ventilator, intubated Comparison: Chest one view portable September 26, 2016 at 4:45 PM Findings: An endotracheal tube is again in place with its distal tip projecting 4 cm above the evaristo. The heart is likely stable in size but is partially obscured. There are opacities within both lower lung zones, which are concerning for atelectasis, pulmonary edema and possibly pneumonia. No pneumothorax is identified, but there is mild bilateral pleural fluid. The osseous structures appear stable. Impression: There is slight decreased opacification/pleural fluid at the right lower lung zone. The study is otherwise similar to before. PROCEDURE INTERPRETED AT [facility] DEPARTMENT OF RADIOLOGY Final Report Signed by: Dr. Ester Gonzales
[2016-09-27] MEDS: CIPROFLOXACIN INJ 400 MG in PREMIX 1 EACH IV SCH (08:15)
[2016-09-27] MEDS: PANTOPRAZOLE 40 MG VIAL IV SCH ×2 (08:15→20:15)
[2016-09-27] MEDS ORDERED: FUROSEMIDE 40 MG/4 ML VIAL IV ONE (09:07)
--- NOTE | 2016-09-27 09:15 | Physician Query Form ---
CLICK EDIT DOCUMENT TO SELECT QUERY ANSWER --> OK --> SIGN Zenaida Kenney RN, CCDS Certified Clinical Graphics Editor W) [phone] (f) [phone] [email or web address] PROVIDERS: Make your selection(s) from the choices in EACH section by typing an "x" and enter comments in the comment section. Please use your independent medical judgment in providing your response. This request does not imply that any particular answer is desired or expected. CLINICAL INDICATORS: (Providers should not edit this section) The medical record indicates that the patient was admitted with a Nontraumatic retroperitoneal hematoma, Creatinine has increased to 2.80# on the 4th, GFR has dropped to 27# and the patient received a bolus of NS on the 3rd. Clarify which of the following most accurately represents the patient's renal status: (X ) Acute kidney injury (non-traumatic) ( ) Acute renal failure ( ) Acute renal failure with underlying Chronic Kidney Disease (CKD) - please provide stage below ( ) Acute renal failure with pathological renal lesion ( ) Acute renal failure with necrosis ( ) tubular ( ) medullary ( ) cortical ( ) CKD - please provide stage below ( ) End Stage Renal Disease ( ) Acute interstitial nephritis ( ) Hepatorenal syndrome ( ) Other, please specify: ( ) Clinically unable to determine Chronic Kidney Disease Stages Source: National Kidney Disease Foundation ( ) Stage I (eGFR > or = 90) ( ) Stage II (eGFR 60 - 89) ( ) Stage III (eGFR 30 - 59) ( ) Stage IV (eGFR 15 - 29) ( ) Stage V (eGFR < 15 or dialysis) COMMENTS: Use of terms such as suspected, likely, or probable (associated with a specific diagnosis that is being evaluated, monitored, or treated as if it exists) are acceptable and can be restated in the discharge summary if not ruled out. MTDD
--- NOTE | 2016-09-27 09:15 | Hospitalist Progress Note ---
Assessment and Plan (1) Jaundice Status: Acute Assessment and plan: I agree with Dr. James that the most likely explanation for elevated bilirubin and pancreatitis is retained biliary stone. Dr. Borjas was able to complete ERCP yesterday evening and removed February from the biliary system. The patient continues on IV antibiotics. The patient is hemodynamically stable and ready for transfer to the floor with cardiac monitoring. I am going to give some Lasix today to improve urine output and reduce lung water which is due to crystalloid fluid resuscitation given yesterday. Current Visit: Yes (2) Nontraumatic retroperitoneal hematoma Status: Acute Current Visit: Yes (3) Acute pancreatitis Status: Acute Current Visit: Yes Hospitalist: Subjective Interval history: The patient is resting comfortably in bed this morning. The patient was extubated and is now breathing comfortably. Blood pressure is mildly elevated. The patient received significant volume expansion yesterday. The patient has been off antihypertensive regimen due to his recent illness. The patient initially had laparoscopic cholecystectomy at [facility] a few months ago. Following that hospitalization the patient did not return to health but has had persistent symptoms of biliary colic. The patient was admitted to the hospital and CT scan reveals fluid collections in the abdomen along the retroperitoneal space. He also had symptoms of biliary obstruction and pancreatitis likely on the basis of passing liver stone. The patient had ERCP yesterday and Dr. Borjas was able to remove debris from the biliary system. The patient's liver function testing is much better today with decreased bilirubin and continually improving lipase. The patient's hemodynamics are stable with some hypertension. Urine output is low but improving. Oxygenation is good and the patient is alert. He appears ready for transfer from the intensive care unit. I coordinated care with the patient's family at the bedside and apprised them of his progress. Exam - Constitutional Vitals: Period Temp Pulse Resp BP Sys/Philippe Pulse Ox Last 24 Hr 98.8 F-99.8 F 70-101 10-30 99-162/52-94 94-99 Exam: Constitutional System: Minimal distress. No tremulousness. The patient has less abdominal pain Head: Normocephalic, atraumatic. Ears, Nose and Throat System: No evidence of Otitis or Mastoiditis. No epistaxis or discharge Eyes System: Pupils equal, round, and reactive. Extraocular muscles intact. Neck: Supple, without adenopathy, No jugular venous distention. No thyromegaly , neck mass, or prior surgery apparent. Respiratory System: Chest clear to auscultation. Few rales in bases Cardiovascular System: Heart with regular tachycardic rate and rhythm. No murmur. GI System: Abdomen soft, distended, minimally tender without guarding. Hypo- active bowel sounds present. Musculoskeletal System: limbs with trace pedal edema. Full distal pulses. Neurological System: No discernable sensory deficit. No aphasia Psychiatric System: Conversation is rational Results - Labs CBC & BMP: 09/27/16 05:50 09/27/16 05:50 Lab Results: I have reviewed the past 24 hour labs Quality Measures - VTE Contraindication to Pharmacological VTE Prophylaxis: Active Bleeding
[2016-09-27 09:38] LABS: ABG Base Excess -5.2 MMOL/L (-2.5-2.5); ABG HCO3 20.1 MMOL/L (20-26); ABG Oxygen Saturation 94.9 % (95-100); ABG PCO2 40.3 MM HG (35-48); ABG PH 7.316 (7.35-7.45); ABG PO2 79.7 MM HG (80-95); ABG TCO2 18.6 MMOL/L (23-27)
--- NOTE | 2016-09-27 09:50 | Gastrointestinal Progress Note ---
Assessment and Plan (1) Acute pancreatitis Status: Acute Assessment and plan: /-Pain improved, no N/V. Lipase down at 973. Bilirubin down at 4 and transaminases unremarkable. Plan and addendum to follow by Dr Borjas. Current Visit: Yes Gastroenterology - PN: Subj Interval history: CC: Jaundice Pt is seen, awake and extubated this morning. ERCP findings noted on yesterday with common bile duct sludge. His LFTs are trending down at this time with bilirubin 4.8 and normal transaminases. Lipase is down at 973. Abdomen is soft, nontender. Denies any pain, nausea or vomiting. Afebrile. WBC 10.5. ROS: Denies SOB or chest pain Exam (Progress Note) - Constitutional Vitals: Period Temp Pulse Resp BP Sys/Philippe Pulse Ox Last 24 Hr 98.8 F-99.8 F 70-101 10-30 99-162/52-94 94-99 General appearance: normal weight, no acute distress - Head Head exam: Present: normal inspection, normocephalic - Eye Eye exam: Present: scleral icterus, other (lids and conjunctiva unremarakble) - ENT ENT exam: Present: normal exam, normal oropharynx - Neck Neck exam: Present: normal inspection - Respiratory Respiratory exam: Present: clear to auscultation bilaterally. Absent: rales, rhonchi, wheezes - Cardiovascular Cardiovascular exam: Present: regular rate and rhythm. Absent: diastolic murmur , JVD, systolic murmur - GI/Abdominal GI/Abdominal exam: Present: normal bowel sounds, soft. Absent: ascites, mass, organomegaly, tenderness - Extremities Exam Extremities exam: Present: normal inspection, full ROM - Back Exam Back exam: Present: normal inspection - Neurological Exam Neurological exam: Present: alert, oriented X3 - Psychiatric Psychiatric exam: Present: normal affect, normal mood - Skin Skin exam: Present: normal color, warm, dry Results - Labs CBC & BMP: 09/27/16 05:50 09/27/16 05:50 Lab Results: I have reviewed the past 24 hour labs
[2016-09-27] MEDS ORDERED: NIFEdipine 10 MG CAPSULE PO PRN (12:44)
[2016-09-27] MEDS ORDERED: COLCHICINE 0.6 MG TABLET PO PRN (12:44)
--- NOTE | 2016-09-27 13:31 | ECHO Report ---
Sanjay Aguilera Exam Date: 09/27/2016 08:56 Referring Physician: Technologist: Tiffanie Stallings Age: 76 Ht (in): 70 Wt (lb): 231 Gender: M Exam Location: [facility] Echo Indications: HTN, Acute pancreatitis, ccardiomegaly, acute resp. failure, jaundice BP: 144 / 75 HR: 91 Rhythm: Sinus Technical Quality: IMPRESSIONS Left ventricular ejection fraction is estimated at 50-55 %. Mild concentric left ventricular hypertrophy with mild diastolic dysfunction. Trace mitral regurgitation. Mild to moderate aortic valve sclerosis without stenosis. Mild tricuspid valve regurgitation. MEASUREMENTS (Male / Female) Normal Values 2D ECHO LV Diastolic Diameter PLAX 4.6 cm 4.2 - 5.9 / 3.9 - 5.3 cm LV Systolic Diameter PLAX 3.0 cm LV Fractional Shortening PLAX 35.6 % IVS Diastolic Thickness 1.7 cm 0.6 - 1.0 / 0.6 - 0.9 cm LVPW Diastolic Thickness 1.5 cm 0.6 - 1.0 / 0.6 - 0.9 cm RV Internal Dim ED PLAX 2.4 cm Aortic Root Diameter 3.2 cm LA Systolic Diameter LX 3.3 cm 3.0 - 4.0 / 2.7 - 3.8 cm DOPPLER TR Peak Velocity 179.0 cm/s TR Peak Gradient 12.8 mmHg FINDINGS Left Ventricle Normal left ventricular cavity size. Mild concentric left ventricular hypertrophy with mild diastolic dysfunction. Left ventricular ejection fraction is estimated at 50-55 %. Right Ventricle Normal right ventricular size. Right Atrium Normal right atrial size. Left Atrium Normal left atrial size. Mitral Valve Grossly normal mitral valve structure with trace mitral regurgitation. Aortic Valve Mild to moderate aortic valve sclerosis without stenosis. Tricuspid Valve Morphologically normal tricuspid valve. Mild tricuspid valve regurgitation. Tricuspid regurgitation velocities suggest a PAP of 12.8 mmHg + RAP. Pulmonic Valve Morphologically normal pulmonic valve. Pericardium No pericardial effusion. Aorta Normal size aortic root and proximal ascending aorta. Justino Hernandez (Electronically Signed) Final Date: 27 Sep 2016 13:28
[2016-09-27] MEDS: amLODIPine 10 MG TABLET PO SCH (14:11)
--- NOTE | 2016-09-27 15:50 | General Surgery Progress Note ---
Assessment and Plan (1) Nontraumatic retroperitoneal hematoma Status: Acute Assessment and plan: ERCP done yesterday remove some sludge from the bile duct and showed evidence of possible passage of recent stone which could explain the patient's pancreatitis. The patient's hemoglobin is probably just drifting down because of his dilution from his fluids. We will repeat a CBC tomorrow. No surgical intervention is planned. Current Visit: Yes Subjective Patient reports: Present: no new complaints, afebrile Exam - Constitutional Vitals: Period Temp Pulse Resp BP Sys/Philippe Pulse Ox Last 24 Hr 98.8 F-99.9 F 70-99 10-30 99-162/55-96 92-99 General appearance: no acute distress, over weight - Head Head exam: Present: normal inspection, normocephalic - Eye Eye exam: Present: EOMI Pupils: Present: RAÚL - ENT ENT exam: Present: normal exam Mouth exam: Present: normal external inspection - Neck Neck exam: Present: normal inspection, trachea midline - Respiratory Respiratory exam: Present: clear to auscultation bilaterally. Absent: accessory muscle use, chest wall tenderness - Cardiovascular Cardiovascular exam: Present: tachycardia. Absent: irregular rhythm, RRR, systolic murmur - GI/Abdominal GI/Abdominal exam: Present: hypoactive bowel sounds, soft. Absent: tenderness, rebound - Extremities Exam Extremities exam: Present: normal inspection, normal capillary refill - Back Exam Back exam: Present: normal inspection - Neurological Exam Neurological exam: Present: alert, oriented X3 Speech: Present: normal - Skin Skin exam: Present: normal color, warm Results - Labs CBC & BMP: 09/27/16 05:50 09/27/16 05:50 - Diagnostic Findings Procedure: Chest x-ray: image reviewed by me, report reviewed by me Quality Measures - VTE Contraindication to Pharmacological VTE Prophylaxis: Active Bleeding
[2016-09-27] MEDS: MORPHINE 2 MG/1 ML SYRINGE IV PRN ×2 (19:36→22:23)
[2016-09-27] MEDS: DORZOLAMIDE/TIMOLOL OPH SOLN 10 ML BOTTLE BOTH EYES SCH (20:16)
[2016-09-27] MEDS: METOPROLOL TARTRATE 100 MG TABLET PO SCH (20:17)
[2016-09-27] MEDS: TERAZOSIN 5 MG CAPSULE PO SCH (20:17)
[2016-09-27] MEDS: PITAVASTATIN 2 MG TABLET PO SCH (20:18)
[2016-09-28] MEDS: CIPROFLOXACIN INJ 400 MG in PREMIX 1 EACH IV SCH ×2 (02:23→20:05)
[2016-09-28] MEDS: PROPRANOLOL 1 MG/1 ML VIAL IV SCH ×4 (02:24→20:48)
[2016-09-28] MEDS: SODIUM CHLORIDE 0.9% 1,000 ML IV SCH ×2 (02:24→06:46)
[2016-09-28 03:14] LABS: ABG Base Excess -4.1 MMOL/L (-2.5-2.5); ABG HCO3 21.5 MMOL/L (20-26); ABG Oxygen Saturation 96.3 % (95-100); ABG PCO2 41.8 MM HG (35-48); ABG PO2 91.6 MM HG (80-95); ABG TCO2 22.8 MMOL/L (23-27)
[2016-09-28 06:09] LABS: Basophils % 0.3 % (0.0-0.8); Eosinophils # 0.1 10*3/uL (0.0-0.87); Eosinophils % 0.8 % (0.00-10.9); Hematocrit 33.6 VOL% (42.0-52.0); Hemoglobin 10.4 GM/DL (14.0-18.0); Immature Granulocytes % 1.1 %; Immature Granulocytes Absolute 0.14 #; Lymphocytes # 0.9 10*3/uL (1.4-4.0); Mean Corpuscular Hemoglobin 28 PG (27-34); Mean Corpuscular Volume 89.6 FL (87-102); Mean Platelet Volume 12.7 FL (9.6-12.0); Monocytes # 1.1 10*3/uL (0.11-0.8); Monocytes % 8.5 % (1.7-12.7); Neutrophils # 10.8 10*3/uL (1.4-7.4); Neutrophils % 82.3 % (38.7-73.9); Platelet Count 109 T/CUMM (130-400); Red Blood Count 3.75 MC/CUMM (3.8-5.5); Red Cell Distribution Width 15.9 % (9.3-17.3); White Blood Count 13.1 T/CUMM (4-12)
[2016-09-28 06:22] LABS: PT Patient Result 10.9 SECS
[2016-09-28] MEDS ORDERED: FUROSEMIDE 40 MG/4 ML VIAL IV ONE (06:30)
[2016-09-28 06:32] LABS: Hypochromasia 1+; Microcytosis Slight
[2016-09-28 06:33] LABS: Platelet Estimate Decreased
--- NOTE | 2016-09-28 06:34 | Pulmonology Progress Note ---
Pulmonary - PN: Subj Interval history: This 76-year-old white male has pancreatitis. He had an ERCP yesterday. He has been on the ventilator overnight. He does have some bilateral atelectasis and small pleural effusions. He has required a good bit of fluid to keep his urine output up. ABGs look good this morning on 70% oxygen. Patient does not have any known significant underlying lung disease. He is responsive on low- dose propofol. Hopefully we can get him extubated this morning. 09/28/16 patient was able to be extubated yesterday. Had a PO2 of 90 on 5 L nasal biprong earlier this morning. Oxygen saturations measuring 94% present. Patient denies being short of breath but he is wheezing. Chest x-ray looks a little wet. We need to cut back on IV fluids. I realize he has an elevated creatinine and his urine output was low. Over the last 24 hours urine output has picked up considerably. He does not have any underlying chronic lung disease. Wheezing and dyspnea are due to fluid overload. This is related to his pancreatitis. Need to watch closely to be sure he does not develop ARDS. Keeping him on the dry side will help with that. Chemistries are not reported yet this morning. Creatinine was 2.8 yesterday. That is up from 1.4 the day before Exam (Progress Note) - Constitutional Vitals: Period Temp Pulse Resp BP Sys/Philippe Pulse Ox Last 24 Hr 98.3 F-99.9 F 65-92 16-31 77-162/40-96 91-98 Exam: Patient is responsive vital signs are normal. Pupils react to light. Orotracheal tube in place. Neck supple no bruits. Chest reveals bilateral expiratory wheezes. Heart normal rate rhythm no murmurs. abdomen somewhat protuberant mildly tender bowel present. Extremities no clubbing cyanosis. Trace of edema. Calves nontender. Results - Labs CBC & BMP: 09/28/16 05:47 09/27/16 05:50 Lab Results: I have reviewed the past 24 hour labs - Diagnostic Findings Procedure: Chest x-ray: image reviewed by me (Chest x-ray shows increased interstitial markings with cardiomegaly. Probable small pleural effusions. Looks a little wetter than yesterday.) Assessment and Plan (1) Acute respiratory failure Status: Acute Assessment and plan: ABGs show a persistent respiratory acidosis despite mechanical ventilation. I have adjusted the ventilator settings. May need to diurese. Difficult to tell whether he has a factor of congestive heart failure involved. Will get echocardiogram and BNP 09/27/2016 ABGs improved. PO2 143 on 70% with 5 of PEEP. Patient appears alert and responsive. Will try on CPAP this morning and see if we can get him extubated. 09/28/2016 patient was extubated. Still requiring 5 L nasal biprong. We need to diurese him a little if his renal function will allow. Current Visit: Yes (2) Nontraumatic retroperitoneal hematoma Status: Acute Assessment and plan: He was found to have some blood in the retroperitoneal space the etiology of which is not clear but suggested to be from a kidney. 09/27/2016 defer to surgery. 09/28/2016 hematocrit stable at 33. Current Visit: Yes (3) Acute pancreatitis Status: Acute Assessment and plan: Markedly elevated lipase. Elevated bilirubin. He has had an ERCP as this was suspected to be secondary to gallstone pancreatitis. 09/27/2016 does not appear to be having severe pain. Watch for pulmonary complications such as pulmonary edema from fluid replacement or ARDS. 09/28/2016 patient not having abdominal pain. Does have some back pain. He has bowel sounds. His lipase has been decreasing. Current Visit: Yes (4) Jaundice Status: Acute Assessment and plan: Bilirubin was 6 yesterday. 09/28/2016 labs are pending Current Visit: Yes
[2016-09-28 06:42] LABS: Albumin 2.1 G/DL (3.4-5.0); Bilirubin,Total 3.7 MG/DL (0.2-1.0); Calcium 6.8 MG/DL (8.5-10.1); Osmolality,Calculated 282.7 MOS/KG (273-304); Potassium 4.1 MMOL/L (3.5-5.1); Total Protein 5.2 G/DL (6.4-8.3)
[2016-09-28] MEDS: LEVOTHYROXINE 50 MCG TABLET PO SCH (08:59)
[2016-09-28] MEDS: METOPROLOL TARTRATE 100 MG TABLET PO SCH ×2 (08:59→20:48)
[2016-09-28] MEDS: PANTOPRAZOLE 40 MG VIAL IV SCH ×2 (08:59→20:48)
[2016-09-28] MEDS: ALLOPURINOL 100 MG TABLET PO SCH (08:59)
[2016-09-28] MEDS: amLODIPine 10 MG TABLET PO SCH (08:59)
--- NOTE | 2016-09-28 08:59 | XRay Report ---
History: On ventilator Date: 09/28/2016 Study: Chest x-ray AP portable Comparison exam: 09/27/2016 The endotracheal tube has been removed. There is continued cardiomegaly. The mediastinal contours are unchanged. Pulmonary vasculature is slightly prominent. There is continued atelectatic change in the right lung base, though this is slightly improved. There is probable mild right pleural effusion, the same or improved. There is increasing patchy and hazy edema/infiltrate in the left mid to lower lung on the current exam. There is no pneumothorax. Osseous structures are similar. Impression: Interval extubation. Mildly increased infiltrate/edema in the left mid to lower lung. Reduced atelectasis in the right lung base PROCEDURE INTERPRETED AT [facility] DEPARTMENT OF RADIOLOGY Final Report Signed by: Dr. Ellen Borjas
--- NOTE | 2016-09-28 10:04 | General Surgery Progress Note ---
Assessment and Plan (1) Nontraumatic retroperitoneal hematoma Status: Acute Assessment and plan: The patient appears to be doing well. I believe his hematoma in his retroperitoneum also been from his pancreatitis. His hemoglobin is stable. There is no evidence of infection of this area. His pancreatitis seems to be resolving. I will sign off at this time. Please call back with any further questions. Current Visit: Yes Subjective Patient reports: Present: no new complaints, feels better, pain is less, afebrile. Absent: nausea, vomiting Narrative: The patient was extubated yesterday. He is doing well. His creatinine is improving. His hemoglobin is stable. Exam - Constitutional Vitals: Period Temp Pulse Resp BP Sys/Philippe Pulse Ox Last 24 Hr 98.3 F-99.9 F 65-92 16-31 77-161/40-96 91-98 General appearance: no acute distress, over weight - Head Head exam: Present: normal inspection, normocephalic - Eye Eye exam: Present: EOMI. Absent: scleral icterus Pupils: Present: RAÚL - ENT ENT exam: Present: normal exam Mouth exam: Present: normal external inspection, normal voice - Neck Neck exam: Present: normal inspection, trachea midline - Respiratory Respiratory exam: Present: clear to auscultation bilaterally. Absent: accessory muscle use, chest wall tenderness - Cardiovascular Cardiovascular exam: Present: RRR. Absent: systolic murmur, tachycardia - GI/Abdominal GI/Abdominal exam: Present: soft. Absent: tenderness, rebound - Extremities Exam Extremities exam: Present: normal inspection, normal capillary refill - Back Exam Back exam: Present: normal inspection - Neurological Exam Neurological exam: Present: alert, oriented X3 Speech: Present: normal - Skin Skin exam: Present: normal color, warm Results - Labs CBC & BMP: 09/28/16 05:47 09/28/16 05:46 - Diagnostic Findings Procedure: Chest x-ray: image reviewed by me, report reviewed by me Quality Measures - VTE Contraindication to Pharmacological VTE Prophylaxis: Active Bleeding
[2016-09-28] MEDS ORDERED: ALBUTEROL/IPRATROPIUM 3 ML NEB RESP TX PRN (12:23)
[2016-09-28] MEDS ORDERED: ALBUTEROL/IPRATROPIUM 3 ML NEB RESP TX ONE (12:23)
--- NOTE | 2016-09-28 13:53 | Hospitalist Progress Note ---
Assessment and Plan (1) Jaundice Status: Acute Assessment and plan: I agree with Dr. James that the most likely explanation for elevated bilirubin and pancreatitis is retained biliary stone. Dr. Borjas was able to complete ERCP Saturday evening and removed debris from the biliary system. The patient continues on IV antibiotics. The patient is hemodynamically stable. I am going to continue to give some Lasix today to improve urine output and reduce lung water which is due to crystalloid fluid resuscitation given in the first 3 days. I coordinated care with Dr. Borjas and with Dr. marrufo. Current Visit: Yes (2) Nontraumatic retroperitoneal hematoma Status: Acute Current Visit: Yes (3) Acute pancreatitis Status: Acute Current Visit: Yes Hospitalist: Subjective Interval history: The patient is resting quietly today. His family are at the bedside and I answered their questions concerning his clinical progress. The patient appears to have improved hemodynamics after extensive crystalloid fluid resuscitation in the first few days. The patient appears mildly hypervolemic and with some pulmonary edema. This is responding appropriately to diuresis. The patient's gas exchange is presently acceptable. The patient is awake and alert and has less abdominal pain today. Exam - Constitutional Vitals: Period Temp Pulse Resp BP Sys/Philippe Pulse Ox Last 24 Hr 98.3 F-99.6 F 65-91 20-31 77-161/40-96 91-98 Exam: Constitutional System: Minimal distress. No tremulousness. The patient has less abdominal pain Head: Normocephalic, atraumatic. Ears, Nose and Throat System: No evidence of Otitis or Mastoiditis. No epistaxis or discharge Eyes System: Pupils equal, round, and reactive. Extraocular muscles intact. Neck: Supple, without adenopathy, No jugular venous distention. No thyromegaly , neck mass, or prior surgery apparent. Respiratory System: Chest clear to auscultation. Few rales in bases Cardiovascular System: Heart with regular tachycardic rate and rhythm. No murmur. GI System: Abdomen soft, distended, minimally tender without guarding. Hypo- active bowel sounds present. Musculoskeletal System: limbs with trace pedal edema. Full distal pulses. Neurological System: No discernable sensory deficit. No aphasia Psychiatric System: Conversation is rational Results - Labs CBC & BMP: 09/28/16 05:47 09/28/16 05:46 Lab Results: I have reviewed the past 24 hour labs Quality Measures - VTE Contraindication to Pharmacological VTE Prophylaxis: Active Bleeding
[2016-09-28] MEDS ORDERED: FUROSEMIDE 100 MG/10 ML VIAL IV ONE (19:43)
[2016-09-28] MEDS: DORZOLAMIDE/TIMOLOL OPH SOLN 10 ML BOTTLE BOTH EYES SCH (20:48)
[2016-09-28] MEDS: PITAVASTATIN 2 MG TABLET PO SCH (20:48)
[2016-09-28] MEDS: TERAZOSIN 5 MG CAPSULE PO SCH (20:48)
[2016-09-28] MEDS: MORPHINE 2 MG/1 ML SYRINGE IV PRN (21:02)
[2016-09-28] MEDS: ACETAMINOPHEN 325 MG TABLET PO PRN (21:25)
[2016-09-28 22:51] LABS: ABG Base Excess -2.7 MMOL/L (-2.5-2.5); ABG Oxygen Saturation 92.5 % (95-100); ABG PH 7.359 (7.35-7.45); ABG TCO2 20.2 MMOL/L (23-27); Allen Test Positive
[2016-09-28] MEDS: ALBUTEROL/IPRATROPIUM 3 ML NEB RESP TX SCH (23:04)
[2016-09-28] MEDS: MELATONIN 3 MG TABLET PO PRN (23:37)
[2016-09-29] MEDS: PROPRANOLOL 1 MG/1 ML VIAL IV SCH ×2 (02:03→08:10)
[2016-09-29] MEDS: ALBUTEROL/IPRATROPIUM 3 ML NEB RESP TX SCH ×5 (03:36→19:19)
[2016-09-29 04:11] LABS: Basophils % 0.3 % (0.0-0.8); Eosinophils # 0.2 10*3/uL (0.0-0.87); Eosinophils % 1.2 % (0.00-10.9); Hematocrit 30.9 VOL% (42.0-52.0); Hemoglobin 10.2 GM/DL (14.0-18.0); Immature Granulocytes % 2.8 %; Immature Granulocytes Absolute 0.41 #; Lymphocytes # 0.9 10*3/uL (1.4-4.0); Lymphocytes % 5.7 % (21.2-54.2); Mean Corpuscular Hemoglobin 28 PG (27-34); Mean Corpuscular Volume 84.2 FL (87-102); Mean Platelet Volume 12.2 FL (9.6-12.0); Monocytes # 1.1 10*3/uL (0.11-0.8); Monocytes % 7.6 % (1.7-12.7); Neutrophils # 12.2 10*3/uL (1.4-7.4); Neutrophils % 82.4 % (38.7-73.9); Platelet Count 136 T/CUMM (130-400); Red Blood Count 3.67 MC/CUMM (3.8-5.5); Red Cell Distribution Width 15.6 % (9.3-17.3); White Blood Count 14.8 T/CUMM (4-12)
[2016-09-29 04:43] LABS: Albumin 2.2 G/DL (3.4-5.0); Bilirubin,Total 4.2 MG/DL (0.2-1.0); Osmolality,Calculated 283.8 MOS/KG (273-304); Potassium 3.4 MMOL/L (3.5-5.1); Total Protein 5.2 G/DL (6.4-8.3)
--- NOTE | 2016-09-29 06:09 | Pulmonology Progress Note ---
Pulmonary - PN: Subj Interval history: The patient is a 76-year-old white man that came in with pancreatitis. He had an ERCP and developed some respiratory distress and was ventilated for day or so. He was extubated yesterday and has done reasonably well. Last night he did have some shortness of breath and hypoxemia but diuresed quite nicely. He has been given some respiratory therapy and on facemask oxygen he feels better. This morning he is more comfortable. He says he is not having that much abdominal pain now and has been able to eat some. He still has some mild wheezing and coughing. He says that shortness of breath is better. His chest x -ray is improved with only mild bibasilar infiltrates. His PO2 was 67 with a PCO2 of 40 last night but his O2 saturations are adequate today. His renal function is improving and his creatinine is down to 2.4. He had very good diuresis yesterday. Exam (Progress Note) - Constitutional Vitals: Period Temp Pulse Resp BP Sys/Philippe Pulse Ox Last 24 Hr 97.8 F-101.2 F 61-86 15-33 96-153/46-88 88-97 General appearance: normal weight, no acute distress (Patient looks reasonably comfortable on low-flow oxygen. He is alert and talking.) - Head Head exam: Present: normal inspection, normocephalic - Eye Eye exam: Present: EOMI, scleral icterus Pupils: Present: RAÚL - ENT ENT exam: Present: normal exam - Neck Neck exam: Present: normal inspection. Absent: lymphadenopathy, thyromegaly - Respiratory Respiratory exam: Present: wheezes, other (He has good breath sounds bilaterally with just some mild wheezing still). Absent: accessory muscle use - Cardiovascular Cardiovascular exam: Present: regular rate and rhythm. Absent: gallop, systolic murmur - GI/Abdominal GI/Abdominal exam: Present: distended, hypoactive bowel sounds, tenderness (He has very mild tenderness), soft. Absent: guarding, organomegaly - Extremities Exam Extremities exam: Absent: calf tenderness, edema - Neurological Exam Neurological exam: Present: alert, oriented X3, CN II-XII intact - Psychiatric Psychiatric exam: Present: normal affect - Skin Skin exam: Present: warm, dry Results - Labs CBC & BMP: 09/29/16 02:54 09/29/16 02:54 - Diagnostic Findings Procedure: Chest x-ray: image reviewed by me, report reviewed by me (Chest x- ray shows mild bibasilar infiltrates.) Assessment and Plan (1) Retroperitoneal hematoma Status: Acute Assessment and plan: Patient's pain is better and his hematocrit is 30.9 and he appears to be stable Current Visit: Yes (2) Hypertension Status: Chronic Assessment and plan: The patient's blood pressure has been quite stable off the ventilator. Current Visit: Yes Qualifiers: Hypertension type: essential hypertension Qualified Code(s): I10 - Essential (primary) hypertension (3) Acute pancreatitis Status: Acute Assessment and plan: The patient's abdominal pain has improved and he has been able to eat a little. Current Visit: Yes (4) Jaundice Status: Acute Assessment and plan: The patient had an ERCP and common bile duct sludge was removed and his bilirubin is improving. His bilirubin is down to 4.2 Current Visit: Yes (5) Acute respiratory failure Status: Acute Assessment and plan: Patient was on the ventilator with respiratory failure may have been volume overloaded. He did diurese fairly well. His breathing is much better now. He will continue with respiratory therapy. Current Visit: Yes
[2016-09-29] MEDS: POTASSIUM CHLORIDE RIDER 10 MEQ in PREMIX 1 EACH IV PRN ×2 (06:15→08:09)
--- NOTE | 2016-09-29 09:01 | XRay Report ---
Referring Physician: Bethel Coates Exam: XR chest 1V portable Date: September 29, 2016 at 3:11 AM Reason: Wheezing Comparison: Chest one view portable September 28, 2016 Findings: The cardiac silhouette is again enlarged. There are scattered opacities within both lower lung zones. This likely represents atelectasis and pulmonary edema, but superimposed pneumonia is not excluded. No pneumothorax is identified, but there is mild bilateral pleural fluid. The osseous structures appear stable. Impression: There has been no significant change. PROCEDURE INTERPRETED AT [facility] DEPARTMENT OF RADIOLOGY Final Report Signed by: Dr. Ester Gonzales
[2016-09-29] MEDS ORDERED: MAGNESIUM SULF RIDER 2 GM in PREMIX 1 EACH IV ONE (09:26)
--- NOTE | 2016-09-29 09:37 | Hospitalist Progress Note ---
Assessment and Plan (1) Jaundice Status: Acute Assessment and plan: I agree with Dr. James that the most likely explanation for elevated bilirubin and pancreatitis is retained biliary stone. Dr. Borjas was able to complete ERCP Saturday evening and removed debris from the biliary system. The patient continues on IV antibiotics. The patient is hemodynamically stable. I am going to hold off on further diuresis today since urine output appears to be brisk. We will recheck chest x-ray and electrolytes tomorrow. I noticed that bilirubin was stable and we will recheck again tomorrow. I updated the patient' s family at the bedside today. Current Visit: Yes (2) Nontraumatic retroperitoneal hematoma Status: Acute Current Visit: Yes (3) Acute pancreatitis Status: Acute Current Visit: Yes Hospitalist: Subjective Interval history: Mr. Aguilera is resting quietly in bed. He had some confusion last night and fell from the bed. The patient had some shortness of breath last night but is better today. Urine output continues brisk following Lasix dose yesterday evening. The patient states his abdominal pain is improving. The patient was able to take some food by mouth. Exam - Constitutional Vitals: Period Temp Pulse Resp BP Sys/Philippe Pulse Ox Last 24 Hr 97.8 F-101.2 F 61-86 15-33 96-153/46-88 88-97 Exam: Constitutional System: Minimal distress. No tremulousness. The patient has less abdominal pain Head: Normocephalic, atraumatic. Ears, Nose and Throat System: No evidence of Otitis or Mastoiditis. No epistaxis or discharge Eyes System: Pupils equal, round, and reactive. Extraocular muscles intact. Neck: Supple, without adenopathy, No jugular venous distention. No thyromegaly , neck mass, or prior surgery apparent. Respiratory System: Chest clear to auscultation. Few rales in bases Cardiovascular System: Heart with regular tachycardic rate and rhythm. No murmur. GI System: Abdomen soft, distended, minimally tender without guarding. Hypo- active bowel sounds present. Musculoskeletal System: limbs with trace pedal edema. Full distal pulses. Neurological System: No discernable sensory deficit. No aphasia Psychiatric System: Conversation is rational Results - Labs CBC & BMP: 09/29/16 02:54 09/29/16 02:54 Lab Results: I have reviewed the past 24 hour labs - Diagnostic Findings Procedure: Chest x-ray: image reviewed by me, report reviewed by me (Chest x- ray shows less pulmonary edema.) Quality Measures - VTE Contraindication to Pharmacological VTE Prophylaxis: Active Bleeding
[2016-09-29] MEDS: POTASSIUM CHLORIDE 20 MEQ TABLET PO SCH ×2 (09:57→13:32)
[2016-09-29] MEDS: LEVOTHYROXINE 50 MCG TABLET PO SCH (09:57)
[2016-09-29] MEDS: PANTOPRAZOLE 40 MG VIAL IV SCH ×2 (09:58→20:23)
[2016-09-29] MEDS: amLODIPine 10 MG TABLET PO SCH (09:58)
[2016-09-29] MEDS: METOPROLOL TARTRATE 100 MG TABLET PO SCH ×2 (09:59→20:21)
[2016-09-29] MEDS: ALLOPURINOL 100 MG TABLET PO SCH (09:59)
[2016-09-29] MEDS: CIPROFLOXACIN INJ 400 MG in PREMIX 1 EACH IV SCH (13:32)
[2016-09-29] MEDS: DORZOLAMIDE/TIMOLOL OPH SOLN 10 ML BOTTLE BOTH EYES SCH (20:20)
[2016-09-29] MEDS: PITAVASTATIN 2 MG TABLET PO SCH (20:21)
[2016-09-29] MEDS: TERAZOSIN 5 MG CAPSULE PO SCH (20:21)
[2016-09-29] MEDS ORDERED: ZALEPLON 5 MG CAPSULE PO ONE (21:28)
[2016-09-30] MEDS: MELATONIN 3 MG TABLET PO PRN (00:22)
[2016-09-30] MEDS: ALBUTEROL/IPRATROPIUM 3 ML NEB RESP TX SCH ×6 (00:30→19:11)
[2016-09-30 05:52] LABS: Albumin 2.2 G/DL (3.4-5.0); Calcium 7.1 MG/DL (8.5-10.1); Osmolality,Calculated 281.8 MOS/KG (273-304); Potassium 3.7 MMOL/L (3.5-5.1); Total Protein 5.2 G/DL (6.4-8.3)
--- NOTE | 2016-09-30 06:25 | Pulmonology Progress Note ---
Pulmonary - PN: Subj Interval history: The patient is a 76-year-old white man that came in with pancreatitis. He had an ERCP and developed some respiratory distress and was ventilated for day or so. He was extubated yesterday and has done reasonably well. Last night he did have some shortness of breath and hypoxemia but diuresed quite nicely. He has been given some respiratory therapy and on facemask oxygen he feels better. He apparently had a fairly good and did get some rest. He set up a little bit yesterday. He is eating a little better without any nausea or vomiting or abdominal pain. He still gets a little short of breath. His chest x-ray still shows mild bibasilar atelectasis. Exam (Progress Note) - Constitutional Vitals: Period Temp Pulse Resp BP Sys/Philippe Pulse Ox Last 24 Hr 98.5 F-99.5 F 62-88 16-33 99-174/54-88 89-98 Exam: General appearance: normal weight, no acute distress (Patient responds reasonably well and looks comfortable lying in bed.) - Head Head exam: Present: normal inspection, normocephalic - Eye Eye exam: Present: EOMI, scleral icterus Pupils: Present: RAÚL - ENT ENT exam: Present: normal exam - Neck Neck exam: Present: normal inspection. Absent: lymphadenopathy, thyromegaly - Respiratory Respiratory exam: Present: He has fairly good breath sounds with some bronchial breath sounds in the bases. He still has some faint wheezing. - Cardiovascular Cardiovascular exam: Present: regular rate and rhythm. Absent: gallop, systolic murmur - GI/Abdominal GI/Abdominal exam: Present: distended, hypoactive bowel sounds, tenderness (He has very mild tenderness), soft. Absent: guarding, organomegaly - Extremities Exam Extremities exam: Absent: calf tenderness, edema - Neurological Exam Neurological exam: Present: alert, oriented X3, CN II-XII intact - Psychiatric Psychiatric exam: Present: normal affect - Skin Skin exam: Present: warm, dry Results - Labs CBC & BMP: 09/29/16 02:54 09/30/16 05:08 - Diagnostic Findings Procedure: Chest x-ray: image reviewed by me, report reviewed by me (Chest x- ray shows mild bibasilar atelectasis, worse on the left.) Assessment and Plan (1) Retroperitoneal hematoma Status: Acute Assessment and plan: Patient's pain is better and his hematocrit is 30.9 and he appears to be stable. He is not having any worsening abdominal pain. Current Visit: Yes (2) Hypertension Status: Chronic Assessment and plan: The patient's blood pressure has been quite stable off the ventilator. He appears to be hemodynamically stable. Current Visit: Yes Qualifiers: Hypertension type: essential hypertension Qualified Code(s): I10 - Essential (primary) hypertension (3) Acute pancreatitis Status: Acute Assessment and plan: The patient's abdominal pain has improved and he has been able to eat a little. His liver function test and bilirubin are better. Current Visit: Yes (4) Jaundice Status: Acute Assessment and plan: The patient had an ERCP and common bile duct sludge was removed and his bilirubin is improving. His bilirubin is down to 3.0. His liver enzymes are normal. Current Visit: Yes (5) Acute respiratory failure Status: Acute Assessment and plan: Patient was on the ventilator with respiratory failure and may have been volume overloaded. He did diurese fairly well. He is coughing some and feels like his shortness of breath is better. His oxygen saturations have been okay. Current Visit: Yes
[2016-09-30] MEDS ORDERED: MORPHINE 2 MG/1 ML SYRINGE IV PRN (08:23)
[2016-09-30] MEDS ORDERED: FUROSEMIDE 40 MG/4 ML VIAL IV ONE (08:26)
--- NOTE | 2016-09-30 08:32 | Hospitalist Progress Note ---
Assessment and Plan (1) Jaundice Status: Acute Assessment and plan: I agree with Dr. James that the most likely explanation for elevated bilirubin and pancreatitis is retained biliary stone. Dr. Borjas was able to complete ERCP Saturday evening and removed debris from the biliary system. The patient continues on IV antibiotics. I am going to increase Cipro to every 12 hour dosing on account of improved kidney function. The patient is hemodynamically stable. I am going to give a dose of Lasix intravenously today. We will recheck electrolytes tomorrow. I noticed that bilirubin is trending down again and was 3 today. I updated the patient's family at the bedside today. Current Visit: Yes (2) Nontraumatic retroperitoneal hematoma Status: Acute Current Visit: Yes (3) Acute pancreatitis Status: Acute Current Visit: Yes Hospitalist: Subjective Interval history: Mr. Aguilera was admitted to the hospital with biliary obstruction and hemorrhagic pancreatitis. The patient began to improve after ERCP remove debris from the common bile duct in this patient who had laparoscopic cholecystectomy several weeks ago. The patient required large volume crystalloid resuscitation due to the pancreatitis. The patient was hypotensive and likely had some ARDS as a result. The patient is now in recovery phase of his illness and we are diuresing pulmonary edema. Some of the edema is likely ARDS and our pace of diuresis is careful on account of acute kidney injury also suffered during the episode of hypotension. Both creatinine and pulmonary edema are improving with cautious diuresis. I have been ordering the Lasix day by day. The patient is resting quietly in bed today. He had been anxious through the night and desiring to get up to the chair on a frequent basis. The patient has some chronic back pain at baseline and likely this is exacerbating his postural discomforts. The patient has improved enough to be ready for transfer up to the floor and continue supportive care. Appetite is marginal but were not encouraging him to strongly due to the recovering pancreatitis. I updated the family at bedside today. Exam - Constitutional Vitals: Period Temp Pulse Resp BP Sys/Philippe Pulse Ox Last 24 Hr 99.1 F-99.5 F 62-88 15-33 99-174/53-88 89-98 Exam: Constitutional System: Minimal distress. No tremulousness. The patient has less abdominal pain Head: Normocephalic, atraumatic. Ears, Nose and Throat System: No evidence of Otitis or Mastoiditis. No epistaxis or discharge Eyes System: Pupils equal, round, and reactive. Extraocular muscles intact. Neck: Supple, without adenopathy, No jugular venous distention. No thyromegaly , neck mass, or prior surgery apparent. Respiratory System: Chest clear to auscultation. Few rales in bases Cardiovascular System: Heart with regular tachycardic rate and rhythm. No murmur. GI System: Abdomen soft, distended, minimally tender without guarding. Hypo- active bowel sounds present. Musculoskeletal System: limbs with trace pedal edema. Full distal pulses. Neurological System: No discernable sensory deficit. No aphasia Psychiatric System: Conversation is rational Results - Labs CBC & BMP: 09/29/16 02:54 09/30/16 05:08 Lab Results: I have reviewed the past 24 hour labs Quality Measures - VTE Contraindication to Pharmacological VTE Prophylaxis: Active Bleeding
[2016-09-30] MEDS: CIPROFLOXACIN INJ 400 MG in PREMIX 1 EACH IV SCH ×3 (08:33→21:47)
--- NOTE | 2016-09-30 09:24 | XRay Report ---
Referring Physician: Bethel Coates Exam: XR chest 1V portable Date: September 30, 2016 at 2:53 AM Reason: Shortness of breath Comparison: Chest one view portable September 29, 2016 Findings: The cardiac silhouette is again enlarged. There are scattered opacities within both lower lung zones. This likely represents atelectasis and pulmonary edema, but pneumonia is not excluded. No pneumothorax is identified, but there is mild bilateral pleural fluid. The osseous structures appear stable. Impression: There is minimal improved aeration of the right lower lung zone. The study is otherwise similar to before. PROCEDURE INTERPRETED AT [facility] DEPARTMENT OF RADIOLOGY Final Report Signed by: Dr. Ester Gonzales
[2016-09-30] MEDS: ALLOPURINOL 100 MG TABLET PO SCH (09:28)
[2016-09-30] MEDS: PANTOPRAZOLE 40 MG TABLET PO SCH ×2 (09:28→21:48)
[2016-09-30] MEDS: LEVOTHYROXINE 50 MCG TABLET PO SCH (09:28)
[2016-09-30] MEDS: METOPROLOL TARTRATE 100 MG TABLET PO SCH ×2 (09:28→21:48)
[2016-09-30] MEDS: amLODIPine 10 MG TABLET PO SCH (09:28)
[2016-09-30] MEDS ORDERED: SODIUM PHOSPHATE ENEMA 133 ML BOTTLE RECTAL ONE (11:41)
[2016-09-30] MEDS ORDERED: DICLOFENAC 1% GEL 100 GM TUBE TOP PRN (13:59)
[2016-09-30] MEDS: POTASSIUM CHLORIDE 20 MEQ TABLET PO SCH ×2 (15:24→18:08)
[2016-09-30] MEDS: TERAZOSIN 5 MG CAPSULE PO SCH (21:48)
[2016-09-30] MEDS: DORZOLAMIDE/TIMOLOL OPH SOLN 10 ML BOTTLE BOTH EYES SCH (21:49)
[2016-09-30] MEDS: PITAVASTATIN 2 MG TABLET PO SCH (21:49)
[2016-10-01] MEDS: ALBUTEROL/IPRATROPIUM 3 ML NEB RESP TX SCH ×7 (00:38→23:33)
[2016-10-01] MEDS: ACETAMINOPHEN 325 MG TABLET PO PRN ×2 (02:23→18:15)
[2016-10-01 06:43] LABS: Basophils # 0.1 10*3/uL (0.0-0.2); Basophils % 0.3 % (0.0-0.8); Eosinophils # 0.2 10*3/uL (0.0-0.87); Eosinophils % 1.3 % (0.00-10.9); Hematocrit 31.5 VOL% (42.0-52.0); Hemoglobin 10.4 GM/DL (14.0-18.0); Immature Granulocytes % 2.7 %; Immature Granulocytes Absolute 0.45 #; Lymphocytes # 1.1 10*3/uL (1.4-4.0); Lymphocytes % 6.6 % (21.2-54.2); Mean Corpuscular Hemoglobin 28 PG (27-34); Mean Corpuscular Volume 83.3 FL (87-102); Mean Platelet Volume 12.7 FL (9.6-12.0); Neutrophils # 14.1 10*3/uL (1.4-7.4); Neutrophils % 83.1 % (38.7-73.9); Platelet Count 193 T/CUMM (130-400); Red Blood Count 3.78 MC/CUMM (3.8-5.5); Red Cell Distribution Width 15.9 % (9.3-17.3); White Blood Count 16.9 T/CUMM (4-12)
[2016-10-01 06:50] LABS: INR 1.1; PT Patient Result 11.5 SECS
[2016-10-01 07:13] LABS: Band Neutrophils 8 % (0-10); Hypochromasia 1+; Lymphocytes 4 % (20-55); Metamyelocytes 1 %; Platelet Estimate Adequate; Segmented Neutrophils 84 % (50-85); Total Cells Counted 100
[2016-10-01 07:16] LABS: Albumin 2.1 G/DL (3.4-5.0); Bilirubin,Total 2.8 MG/DL (0.2-1.0); Calcium 7.1 MG/DL (8.5-10.1); Magnesium 1.9 MG/DL (1.8-2.4); Osmolality,Calculated 280.7 MOS/KG (273-304); Potassium 3.4 MMOL/L (3.5-5.1); Total Protein 5.4 G/DL (6.4-8.3)
--- NOTE | 2016-10-01 08:27 | Pulmonology Progress Note ---
Pulmonary - PN: Subj Interval history: This 76-year-old white male has pancreatitis. He had an ERCP yesterday. He has been on the ventilator overnight. He does have some bilateral atelectasis and small pleural effusions. He has required a good bit of fluid to keep his urine output up. ABGs look good this morning on 70% oxygen. Patient does not have any known significant underlying lung disease. He is responsive on low- dose propofol. Hopefully we can get him extubated this morning. 09/28/16 patient was able to be extubated yesterday. Had a PO2 of 90 on 5 L nasal biprong earlier this morning. Oxygen saturations measuring 94% present. Patient denies being short of breath but he is wheezing. Chest x-ray looks a little wet. We need to cut back on IV fluids. I realize he has an elevated creatinine and his urine output was low. Over the last 24 hours urine output has picked up considerably. He does not have any underlying chronic lung disease. Wheezing and dyspnea are due to fluid overload. This is related to his pancreatitis. Need to watch closely to be sure he does not develop ARDS. Keeping him on the dry side will help with that. Chemistries are not reported yet this morning. Creatinine was 2.8 yesterday. That is up from 1.4 the day before 10/01/2016 patient now on the gonzales. He is eating breakfast. Obviously his pancreatitis is improved. Renal function has improved with creatinine down to 1.7. Chest x-ray still shows small pleural effusions and some bibasilar atelectasis bilaterally yesterday's film. I think we are still a little ahead on fluid. We will continue with Lasix. Recheck x-ray tomorrow. He also has some atelectasis and likely bronchopneumonia. Overall improved. Exam (Progress Note) - Constitutional Vitals: Period Temp Pulse Resp BP Sys/Philippe Pulse Ox Last 24 Hr 97.7 F-99.4 F 56-77 18-24 114-154/52-81 91-100 Exam: Patient is responsive, sitting up in a chair. Vital signs are normal. Pupils react to light. Neck supple no bruits. Chest reveals bilateral expiratory wheezes. Heart normal rate rhythm no murmurs. abdomen somewhat protuberant mildly tender bowel present. Extremities no clubbing cyanosis. Trace of edema. Calves nontender. Results - Labs CBC & BMP: 10/01/16 05:54 10/01/16 05:54 Lab Results: I have reviewed the past 24 hour labs - Diagnostic Findings Procedure: Chest x-ray: image reviewed by me (Yesterday's chest x-ray still shows some bibasilar atelectasis and small pleural effusions. I think we are still ahead on fluid.) Assessment and Plan (1) Acute respiratory failure Status: Acute Assessment and plan: ABGs show a persistent respiratory acidosis despite mechanical ventilation. I have adjusted the ventilator settings. May need to diurese. Difficult to tell whether he has a factor of congestive heart failure involved. Will get echocardiogram and BNP 09/27/2016 ABGs improved. PO2 143 on 70% with 5 of PEEP. Patient appears alert and responsive. Will try on CPAP this morning and see if we can get him extubated. 09/28/2016 patient was extubated. Still requiring 5 L nasal biprong. We need to diurese him a little if his renal function will allow. 10/01/2016 patient has done well with extubation. Reducing oxygen. He is still wheezing. no previous history of lung disease. Treating for both bronchitis with bronchospasm and fluid overload. Current Visit: Yes (2) Nontraumatic retroperitoneal hematoma Status: Acute Assessment and plan: He was found to have some blood in the retroperitoneal space the etiology of which is not clear but suggested to be from a kidney. 09/27/2016 defer to surgery. 09/28/2016 hematocrit stable at 33. Current Visit: Yes (3) Acute pancreatitis Status: Acute Assessment and plan: Markedly elevated lipase. Elevated bilirubin. He has had an ERCP as this was suspected to be secondary to gallstone pancreatitis. 09/27/2016 does not appear to be having severe pain. Watch for pulmonary complications such as pulmonary edema from fluid replacement or ARDS. 09/28/2016 patient not having abdominal pain. Does have some back pain. He has bowel sounds. His lipase has been decreasing. 10/01/2016 this appears to be resolving. Bilirubin falling. Recheck amylase and lipase. Current Visit: Yes (4) Jaundice Status: Acute Assessment and plan: Bilirubin was 6 yesterday. 09/28/2016 labs are pending 10/01/2016 bilirubin down to 2.8. Current Visit: Yes
[2016-10-01] MEDS: CIPROFLOXACIN INJ 400 MG in PREMIX 1 EACH IV SCH ×2 (09:08→21:25)
[2016-10-01] MEDS: amLODIPine 10 MG TABLET PO SCH (09:08)
[2016-10-01] MEDS: METOPROLOL TARTRATE 100 MG TABLET PO SCH ×2 (09:09→21:27)
[2016-10-01] MEDS: LEVOTHYROXINE 50 MCG TABLET PO SCH (09:09)
[2016-10-01] MEDS: PANTOPRAZOLE 40 MG TABLET PO SCH ×2 (09:09→21:28)
[2016-10-01] MEDS: ALLOPURINOL 100 MG TABLET PO SCH (09:09)
[2016-10-01] MEDS: FUROSEMIDE 20 MG/2 ML VIAL IV SCH (09:13)
--- NOTE | 2016-10-01 14:51 | Hospitalist Progress Note ---
Assessment and Plan (1) Loss of appetite Status: Acute Assessment and plan: Try patient on Periactin (cyproheptadine) 2 mg p.o. 4 times daily at least for the next 7 days. Current Visit: Yes (2) Retroperitoneal hematoma Status: Acute Assessment and plan: Hematocrit is remained stable I believe bleeding stopped Current Visit: Yes (3) Acute pancreatitis Status: Acute Assessment and plan: This is resolving. Lipase tomorrow. Current Visit: Yes (4) Acute respiratory failure Status: Acute Assessment and plan: Recovered patient is extubated is on the regular floor this time. Continue to monitor respiratory status and other vital signs. Increase activity with PT OT Current Visit: Yes Hospitalist: Subjective Interval history: First encounter with this patient is being hospital for some time patient is assigned to me today. Patient admitted to the hospital with a acute respiratory failure on the ventilator and in my intensive care unit. History of retroperitoneal hematoma which was nontraumatic associated with evidence for acute pancreatitis. Whether this was hemorrhagic pancreatitis is not clear to me. He has since been extubated and transferred from the PICU to the floor. Is complaining of poor appetite is no complaining of abdominal pain is much is no nausea there is no vomiting his latest hemoglobin is 10.4 hematocrit of 31.5 platelet count 193,000. Overall hematocrit is remained stable. Renal function is also improving with the latest creatinine of 1.7. He is on oral feeding but is not eating as much. With his history of DVTs am worried about putting him on Megace probably try a short course of Periactin appetite post. Exam - Constitutional Vitals: Period Temp Pulse Resp BP Sys/Philippe Pulse Ox Last 24 Hr 97.8 F-99.4 F 56-90 16-22 114-145/52-81 91-100 General appearance: over weight - Head Head exam: Present: normocephalic, atraumatic - Eye Eye exam: Present: EOMI, other Pupils: Present: RAÚL (Anicteric sclera no conjunctival) - ENT ENT exam: Present: normal exam, normal oropharynx - Neck Neck exam: Present: normal inspection, other (Supple neck no JVD no bruits no regional) - Respiratory Respiratory exam: Present: clear to auscultation bilaterally, other (No wheezing no rales no rhonchi) - Cardiovascular Cardiovascular exam: Present: regular rate and rhythm - GI/Abdominal GI/Abdominal exam: Present: normal bowel sounds, soft - Extremities Exam Extremities exam: Present: full ROM - Neurological Exam Neurological exam: Present: alert, oriented X3, CN II-XII intact - Psychiatric Psychiatric exam: Present: normal affect, normal mood - Skin Skin exam: Present: normal color, warm, dry Results - Labs CBC & BMP: 10/01/16 05:54 10/01/16 05:54 Lab Results: I have reviewed the past 24 hour labs Quality Measures - VTE Contraindication to Pharmacological VTE Prophylaxis: Active Bleeding
[2016-10-01] MEDS: DORZOLAMIDE/TIMOLOL OPH SOLN 10 ML BOTTLE BOTH EYES SCH (21:27)
[2016-10-01] MEDS: TERAZOSIN 5 MG CAPSULE PO SCH (21:28)
[2016-10-01] MEDS: PITAVASTATIN 2 MG TABLET PO SCH (21:31)
[2016-10-02] MEDS: ALBUTEROL/IPRATROPIUM 3 ML NEB RESP TX SCH ×6 (02:43→23:00)
--- NOTE | 2016-10-02 07:28 | Pulmonology Progress Note ---
Pulmonary - PN: Subj Interval history: This 76-year-old white male has pancreatitis. He had an ERCP yesterday. He has been on the ventilator overnight. He does have some bilateral atelectasis and small pleural effusions. He has required a good bit of fluid to keep his urine output up. ABGs look good this morning on 70% oxygen. Patient does not have any known significant underlying lung disease. He is responsive on low- dose propofol. Hopefully we can get him extubated this morning. 09/28/16 patient was able to be extubated yesterday. Had a PO2 of 90 on 5 L nasal biprong earlier this morning. Oxygen saturations measuring 94% present. Patient denies being short of breath but he is wheezing. Chest x-ray looks a little wet. We need to cut back on IV fluids. I realize he has an elevated creatinine and his urine output was low. Over the last 24 hours urine output has picked up considerably. He does not have any underlying chronic lung disease. Wheezing and dyspnea are due to fluid overload. This is related to his pancreatitis. Need to watch closely to be sure he does not develop ARDS. Keeping him on the dry side will help with that. Chemistries are not reported yet this morning. Creatinine was 2.8 yesterday. That is up from 1.4 the day before 10/01/2016 patient now on the gonzales. He is eating breakfast. Obviously his pancreatitis is improved. Renal function has improved with creatinine down to 1.7. Chest x-ray still shows small pleural effusions and some bibasilar atelectasis bilaterally yesterday's film. I think we are still a little ahead on fluid. We will continue with Lasix. Recheck x-ray tomorrow. He also has some atelectasis and likely bronchopneumonia. Overall improved. 10/02/2016 patient not eating much. I had stopped his fluids earlier and given Lasix. His creatinine is down to 1.7. He appears to be getting a little dry. I will started back on some IV fluids. Hopefully he will get a better appetite as time goes on. Certainly not surprising that he is not hungry with pancreatitis. I do not think any appetite stimulants would help. Lipase is still around the thousand. His lungs are sounding better but he has some mild wheezing. Chest x-ray is pending. Has some atelectatic pneumonitis on previous films. Remains on intravenous Cipro. Exam (Progress Note) - Constitutional Vitals: Period Temp Pulse Resp BP Sys/Philippe Pulse Ox Last 24 Hr 98.3 F-100.8 F 67-106 16-20 122-162/60-78 91-98 Exam: Patient is responsive, sitting up in a chair. Vital signs are normal. Pupils react to light. Neck supple no bruits. Chest reveals mild end expiratory bilateral wheezes. Heart normal rate rhythm no murmurs. abdomen somewhat protuberant mildly tender bowel present. Extremities no clubbing cyanosis. Trace of edema. Calves nontender. Results - Labs CBC & BMP: 10/01/16 05:54 10/01/16 05:54 Lab Results: I have reviewed the past 24 hour labs - Diagnostic Findings Procedure: Chest x-ray: pending Assessment and Plan (1) Acute respiratory failure Status: Acute Assessment and plan: ABGs show a persistent respiratory acidosis despite mechanical ventilation. I have adjusted the ventilator settings. May need to diurese. Difficult to tell whether he has a factor of congestive heart failure involved. Will get echocardiogram and BNP 09/27/2016 ABGs improved. PO2 143 on 70% with 5 of PEEP. Patient appears alert and responsive. Will try on CPAP this morning and see if we can get him extubated. 09/28/2016 patient was extubated. Still requiring 5 L nasal biprong. We need to diurese him a little if his renal function will allow. 10/01/2016 patient has done well with extubation. Reducing oxygen. He is still wheezing. no previous history of lung disease. Treating for both bronchitis with bronchospasm and fluid overload. 10/02/2016 still requiring some nasal oxygen. Otherwise respiratory failure has resolved. He has atelectatic pneumonitis with bronchospasm. Current Visit: Yes (2) Nontraumatic retroperitoneal hematoma Status: Acute Assessment and plan: He was found to have some blood in the retroperitoneal space the etiology of which is not clear but suggested to be from a kidney. 09/27/2016 defer to surgery. 09/28/2016 hematocrit stable at 33. Current Visit: Yes (3) Acute pancreatitis Status: Acute Assessment and plan: Markedly elevated lipase. Elevated bilirubin. He has had an ERCP as this was suspected to be secondary to gallstone pancreatitis. 09/27/2016 does not appear to be having severe pain. Watch for pulmonary complications such as pulmonary edema from fluid replacement or ARDS. 09/28/2016 patient not having abdominal pain. Does have some back pain. He has bowel sounds. His lipase has been decreasing. 10/01/2016 this appears to be resolving. Bilirubin falling. Recheck amylase and lipase. 10/02/2016 lipase remains elevated. Symptoms are better. No abdominal pain. Current Visit: Yes (4) Jaundice Status: Acute Assessment and plan: Bilirubin was 6 yesterday. 09/28/2016 labs are pending 10/01/2016 bilirubin down to 2.8. Current Visit: Yes
[2016-10-02] MEDS ORDERED: DEXT 5% NACL 0.45% KCL 10 MEQ 10 MEQ/1,000 ML BAG IV SCH (07:30)
--- NOTE | 2016-10-02 09:50 | XRay Report ---
XR chest 1V portable Indication: SOB Comparison: Chest x-ray dated September 30, 2016 Technique: Single frontal view of the chest Findings: Continued cardiomegaly. Interval improved bilateral lower lung atelectasis/consolidation with minimal remaining. Osseous and surrounding soft tissue structures appear grossly unchanged. IMPRESSION: As above. PROCEDURE INTERPRETED AT [facility] DEPARTMENT OF RADIOLOGY Final Report Signed by: Dr Jorge A Otoole
[2016-10-02] MEDS: ACETAMINOPHEN 325 MG TABLET PO PRN ×3 (10:15→21:29)
[2016-10-02] MEDS ORDERED: BISACODYL 10 MG SUPP RECTAL ONE (10:18)
[2016-10-02] MEDS: cloNIDine 0.3 MG/24 HR PATCH TRANSDERM SCH (11:18)
[2016-10-02] MEDS: FUROSEMIDE 20 MG/2 ML VIAL IV SCH (11:18)
[2016-10-02] MEDS: LEVOTHYROXINE 50 MCG TABLET PO SCH (11:19)
[2016-10-02] MEDS: ALLOPURINOL 100 MG TABLET PO SCH (11:19)
[2016-10-02] MEDS: CIPROFLOXACIN INJ 400 MG in PREMIX 1 EACH IV SCH ×2 (11:19→20:49)
[2016-10-02] MEDS: METOPROLOL TARTRATE 100 MG TABLET PO SCH ×2 (11:19→20:50)
[2016-10-02] MEDS: amLODIPine 10 MG TABLET PO SCH (11:19)
[2016-10-02] MEDS: PANTOPRAZOLE 40 MG TABLET PO SCH ×2 (11:19→20:50)
--- NOTE | 2016-10-02 11:40 | Physician Query Form ---
CLICK EDIT DOCUMENT TO SELECT QUERY ANSWER --> OK --> SIGN Zenaida Kenney RN, CCDS Certified Clinical Trouble Shooter W) [phone] (f) [phone] [email or web address] PROVIDERS: Make your selection(s) from the choices in EACH section by typing an "x" and enter comments in the comment section. Please use your independent medical judgment in providing your response. This request does not imply that any particular answer is desired or expected. CLINICAL INDICATORS: (Providers should not edit this section) The medical record indicates that the patient was admitted with a Nontraumatic retroperitoneal hematoma, on the 5th: "pulmonary edema" is mentioned, on the 7th : "volume overload" is mentioned, and "responding appropriately to diuresis". In your clinical opinion can you please clarify the acuity of the pulmonary edema? Clarify which of the following accurately represents the acuity of the above diagnosis. ( x) Acute ( ) Acute on chronic ( ) Chronic stable condition ( ) Remission ( ) Other, please specify: ( ) Clinically unable to determine COMMENTS: Use of terms such as suspected, likely, or probable (associated with a specific diagnosis that is being evaluated, monitored, or treated as if it exists) are acceptable and can be restated in the discharge summary if not ruled out. MTDD
[2016-10-02] MEDS ORDERED: FUROSEMIDE 20 MG/2 ML VIAL IV ONE (16:45)
[2016-10-02 17:45] LABS: Apearance,Urine CLEAR (Clear); Bilirubin,Urine Negative (Negative); Blood, Urine Small mg/dL (Negative); Glucose,Urine (UA) Negative (Negative); Ketones,Urine Negative (Negative); Mucus,Urine Occasional /LPF (Occasional); Nitrite,Urine Negative (Negative); Protein,Urine Negative; RBC,Urine 3 /HPF (0-4); Squamous Epithelial Cell,Urine Occasional /HPF (0-10); Urine Color Yellow (Yellow); Urine Specific Gravity 1.009 (1.001-1.035); WBC,Urine 2 /HPF (0-6)
--- NOTE | 2016-10-02 18:26 | Hospitalist Progress Note ---
Hospitalist: Subjective Interval history: Pt with poor oral intake. He denies cp or SOB. No fever. No nausea or vomiting. Wet Cough. +weak and abdomen has swollen today per family and nurse. Exam - Constitutional Vitals: Period Temp Pulse Resp BP Sys/Philippe Pulse Ox Last 24 Hr 98.3 F-99.5 F 64-106 17-32 122-162/54-78 93-98 Exam: Chronically ill appearing, dry oral mucosa RRR no M coarse with rales at the bases, nonlabored Soft, NT, distended, positive bowel sounds Warm no c/c/e Results - Labs CBC & BMP: 10/01/16 05:54 10/01/16 05:54 - Impressions (1) Loss of appetite/ Anorexia Status: Acute Assessment and plan: Current Visit: Yes Likely due to pancreatitis and chronic medical conditions (2) Retroperitoneal hematoma Status: Acute Assessment and plan: Hematocrit is remained stable I believe bleeding stopped Current Visit: Yes (3) Acute pancreatitis with possible ascites Status: Acute Assessment and plan: Slowly resolving. Serial Lipase. Current Visit: Yes (4) Acute respiratory failure Status: Acute Assessment and plan: Recovered patient is extubated is on the regular floor this time. Continue to monitor respiratory status and other vital signs. Increase activity with PT OT Current Visit: Yes Check CT chest/abd/pelvis without contrast Lasix 20 mg IV x 1 Hold IVF for now. DVT prophyalxis Quality Measures - VTE Contraindication to Pharmacological VTE Prophylaxis: Active Bleeding
--- NOTE | 2016-10-02 19:38 | CT Report ---
EXAM: CT chest, abdomen and pelvis without contrast DATE: October 02, 2016 COMPARISON: CT abdomen and pelvis September 25, 2016 REASON: Generalized abdominal pain, abdominal bloating, shortness of breath TECHNIQUE: Axial images of the chest, abdomen and pelvis were obtained without the use of IV contrast. Oral contrast was administered. Sagittal and coronal reformatted images were provided. Total DLP was 900.1 mGy*cm. CT CHEST FINDINGS: Vascular/heart: The thoracic aorta is normal in size. There is mild scattered calcified plaque at the thoracic aorta and arch vessels. The pulmonary arteries are unremarkable as visualized. The heart is normal in size. No pericardial effusion is seen. Lymph nodes: There are calcified mediastinal and hilar lymph nodes, but no suspicious adenopathy is seen. Evaluation for hilar adenopathy is limited by the lack of contrast. Other mediastinum: Otherwise unremarkable. Chest wall: Unremarkable. Lungs: There is mild left pleural fluid and minimal right pleural fluid, increased since the previous study. There are also scattered opacities within both lungs, mainly within the lower lung zones. These opacities are particularly prominent within the left lower lobe. This likely represents atelectasis, mild pulmonary edema and possibly pneumonia. There are also a few calcified granulomas within the left lower lobe. No pneumothorax is identified. Bones: No acute osseous process is seen at the chest. IMPRESSION: 1. Mild left pleural fluid and minimal right pleural fluid, increased since the previous study. 2. There are scattered opacities within both lungs, mainly within the lower lung zones. This is especially prominent within the left lower lobe. This likely represents atelectasis, pulmonary edema and possibly pneumonia. ABDOMEN AND PELVIS FINDINGS: ABDOMEN: Liver: A 1.7 cm hypodensity is again seen within the medial aspect of the right hepatic lobe on image 102. This likely represents a cyst, but characterization is limited on this noncontrast study. Gallbladder and bile ducts: The patient is status post cholecystectomy. No definite biliary duct dilatation is seen. Pancreas: The pancreas is again enlarged and indistinct, and there is prominent peripancreatic fluid. This is concerning for acute pancreatitis. The amount of fluid/inflammation at the pancreas may be slightly more prominent today, but no definite pseudocyst formation is seen. Spleen: Unremarkable. Adrenals: Unremarkable. Kidneys and ureters: No hydronephrosis is present, and no renal or ureteral calculi are seen. PELVIS: Bladder: The bladder is decompressed, and a Marrero catheter is in place. Reproductive: Unremarkable as visualized. ABDOMEN AND PELVIS: Bowel: There is no evidence of bowel obstruction. The duodenum and proximal jejunum abut the area of pancreatic inflammation, and inflammation of the bowel in this region is not excluded. Appendix: The appendix is not identified, but there are no secondary signs of appendicitis. Vasculature: The abdominal aorta is normal in size. There is mild to moderate scattered calcified plaque at the abdominal aorta. Peritoneum/retroperitoneum: No free air is identified. However, there is again an oval well-circumscribed area of high attenuation at the medial aspect of the right kidney. It measures 9.0 x 6.2 cm on image 129 and displaces the right kidney laterally. There is also a similar area of well-circumscribed high attenuation within the right pelvis, measuring 13.0 x 5.9 cm on image 183. These areas of high attenuation have not significantly changed when considering differences in measuring technique. This is suspected to represent hemorrhagic retroperitoneal fluid. Lymph nodes: No suspicious adenopathy is seen. Abdominal/pelvic wall: There is a minimal fat-containing umbilical hernia. Bones: There is multilevel degenerative change at the lumbar spine with prominent disc space narrowing and endplate degenerative change at L4-L5. No acute osseous process is seen. IMPRESSION: 1. There is again evidence of pancreatitis with ill-defined surrounding fluid/inflammation. The amount of ill-defined fluid/inflammation in this region has slightly increased, but no definite pseudocyst formation is seen. 2. There are stable well-circumscribed high density collections at the medial aspect of the right kidney and within the right pelvis. This likely represents retroperitoneal hemorrhage, the origin of which is uncertain. 3. Possible hepatic cyst, similar to before. The CT exam was performed using one or more of the following dose reduction techniques: Automated exposure control and adjustment of the mA and/or kV according to patient size. PROCEDURE INTERPRETED AT [facility] DEPARTMENT OF RADIOLOGY Final Report Signed by: Dr. Ester Gonzales
[2016-10-02] MEDS: DORZOLAMIDE/TIMOLOL OPH SOLN 10 ML BOTTLE BOTH EYES SCH (20:49)
[2016-10-02] MEDS: TERAZOSIN 5 MG CAPSULE PO SCH (20:50)
[2016-10-02] MEDS: PITAVASTATIN 2 MG TABLET PO SCH (20:51)
[2016-10-03] MEDS: ALBUTEROL/IPRATROPIUM 3 ML NEB RESP TX SCH ×6 (03:00→23:00)
[2016-10-03] MEDS: ACETAMINOPHEN 325 MG TABLET PO PRN ×2 (04:09→21:30)
[2016-10-03 07:16] LABS: Basophils # 0.1 10*3/uL (0.0-0.2); Basophils % 0.3 % (0.0-0.8); Eosinophils # 0.2 10*3/uL (0.0-0.87); Eosinophils % 1.2 % (0.00-10.9); Hematocrit 30.1 VOL% (42.0-52.0); Hemoglobin 10.4 GM/DL (14.0-18.0); Immature Granulocytes % 2.4 %; Immature Granulocytes Absolute 0.39 #; Lymphocytes % 6.1 % (21.2-54.2); Mean Corpuscular HGB Conc 34.6 GM/DL (32-36); Mean Corpuscular Hemoglobin 28 PG (27-34); Mean Corpuscular Volume 81.4 FL (87-102); Mean Platelet Volume 12.4 FL (9.6-12.0); Monocytes # 1.1 10*3/uL (0.11-0.8); Monocytes % 6.6 % (1.7-12.7); Neutrophils # 13.7 10*3/uL (1.4-7.4); Neutrophils % 83.4 % (38.7-73.9); Platelet Count 231 T/CUMM (130-400); Red Cell Distribution Width 15.6 % (9.3-17.3); White Blood Count 16.5 T/CUMM (4-12)
--- NOTE | 2016-10-03 07:18 | Pulmonology Progress Note ---
Pulmonary - PN: Subj Interval history: This 76-year-old white male has pancreatitis. He had an ERCP yesterday. He has been on the ventilator overnight. He does have some bilateral atelectasis and small pleural effusions. He has required a good bit of fluid to keep his urine output up. ABGs look good this morning on 70% oxygen. Patient does not have any known significant underlying lung disease. He is responsive on low- dose propofol. Hopefully we can get him extubated this morning. 09/28/16 patient was able to be extubated yesterday. Had a PO2 of 90 on 5 L nasal biprong earlier this morning. Oxygen saturations measuring 94% present. Patient denies being short of breath but he is wheezing. Chest x-ray looks a little wet. We need to cut back on IV fluids. I realize he has an elevated creatinine and his urine output was low. Over the last 24 hours urine output has picked up considerably. He does not have any underlying chronic lung disease. Wheezing and dyspnea are due to fluid overload. This is related to his pancreatitis. Need to watch closely to be sure he does not develop ARDS. Keeping him on the dry side will help with that. Chemistries are not reported yet this morning. Creatinine was 2.8 yesterday. That is up from 1.4 the day before 10/01/2016 patient now on the gonzales. He is eating breakfast. Obviously his pancreatitis is improved. Renal function has improved with creatinine down to 1.7. Chest x-ray still shows small pleural effusions and some bibasilar atelectasis bilaterally yesterday's film. I think we are still a little ahead on fluid. We will continue with Lasix. Recheck x-ray tomorrow. He also has some atelectasis and likely bronchopneumonia. Overall improved. 10/02/2016 patient not eating much. I had stopped his fluids earlier and given Lasix. His creatinine is down to 1.7. He appears to be getting a little dry. I will started back on some IV fluids. Hopefully he will get a better appetite as time goes on. Certainly not surprising that he is not hungry with pancreatitis. I do not think any appetite stimulants would help. Lipase is still around the thousand. His lungs are sounding better but he has some mild wheezing. Chest x-ray is pending. Has some atelectatic pneumonitis on previous films. Remains on intravenous Cipro. 10/03/2016 patient drinking some diet supplements and that is about it. I had restarted some IV fluids yesterday because he look to be getting dry. Those have been discontinued. I will stop the Lasix as well then. Yesterday's chest x-ray showed marked improvement in the pleural effusions. The CT scan shows small pleural effusions and some atelectasis at the left base. I think the effusion on the left side is sympathetic to the pancreatitis. I do not think he is fluid overloaded at present. Need to watch his renal function closely. If his creatinine has gone back up with today's labs and he should have some more IV fluid. The lab reports of course are not out yet this morning. Exam (Progress Note) - Constitutional Vitals: Period Temp Pulse Resp BP Sys/Philippe Pulse Ox Last 24 Hr 97.8 F-99.5 F 62-78 17-32 122-144/52-70 91-96 Exam: Patient is responsive, sitting up in a chair. Vital signs are normal. Pupils react to light. Neck supple no bruits. Chest reveals mild end expiratory bilateral wheezes. Heart normal rate rhythm no murmurs. abdomen somewhat protuberant mildly tender bowel present. Extremities no clubbing cyanosis. Trace of edema. Calves nontender. Results - Labs CBC & BMP: 10/01/16 05:54 10/01/16 05:54 Lab Results: I have reviewed the past 24 hour labs - Diagnostic Findings Procedure: Chest x-ray: image reviewed by me (Yesterday's chest x-ray showed marked improvement. Still has some mild atelectasis especially at the left base. Tiny pleural effusions were noted on the CT scan.) Assessment and Plan (1) Acute respiratory failure Status: Acute Assessment and plan: ABGs show a persistent respiratory acidosis despite mechanical ventilation. I have adjusted the ventilator settings. May need to diurese. Difficult to tell whether he has a factor of congestive heart failure involved. Will get echocardiogram and BNP 09/27/2016 ABGs improved. PO2 143 on 70% with 5 of PEEP. Patient appears alert and responsive. Will try on CPAP this morning and see if we can get him extubated. 09/28/2016 patient was extubated. Still requiring 5 L nasal biprong. We need to diurese him a little if his renal function will allow. 10/01/2016 patient has done well with extubation. Reducing oxygen. He is still wheezing. no previous history of lung disease. Treating for both bronchitis with bronchospasm and fluid overload. 10/02/2016 still requiring some nasal oxygen. Otherwise respiratory failure has resolved. He has atelectatic pneumonitis with bronchospasm. 10/03/2016 this is resolved. Oxygen saturation 94% on room air. Current Visit: Yes (2) Nontraumatic retroperitoneal hematoma Status: Acute Assessment and plan: He was found to have some blood in the retroperitoneal space the etiology of which is not clear but suggested to be from a kidney. 09/27/2016 defer to surgery. 09/28/2016 hematocrit stable at 33. 10/03/2016 this is apparently stable on CT scan. Current Visit: Yes (3) Acute pancreatitis Status: Acute Assessment and plan: Markedly elevated lipase. Elevated bilirubin. He has had an ERCP as this was suspected to be secondary to gallstone pancreatitis. 09/27/2016 does not appear to be having severe pain. Watch for pulmonary complications such as pulmonary edema from fluid replacement or ARDS. 09/28/2016 patient not having abdominal pain. Does have some back pain. He has bowel sounds. His lipase has been decreasing. 10/01/2016 this appears to be resolving. Bilirubin falling. Recheck amylase and lipase. 10/02/2016 lipase remains elevated. Symptoms are better. No abdominal pain. 10/03/2016 no abdominal pain. Poor appetite. Will take a while for this to continue resolving. Current Visit: Yes (4) Jaundice Status: Acute Assessment and plan: Bilirubin was 6 yesterday. 09/28/2016 labs are pending 10/01/2016 bilirubin down to 2.8. Current Visit: Yes
[2016-10-03 07:53] LABS: Albumin 2.2 G/DL (3.4-5.0); Bilirubin,Direct 1.6 MG/DL (0.0-0.20); Bilirubin,Indirect 0.9 MG/DL (0.0-1.0); Bilirubin,Total 2.5 MG/DL (0.2-1.0); Calcium 7.4 MG/DL (8.5-10.1); Magnesium 1.9 MG/DL (1.8-2.4); Phosphorous 2.8 MG/DL (2.5-4.9); Potassium 3.4 MMOL/L (3.5-5.1); Total Protein 5.5 G/DL (6.4-8.3)
[2016-10-03 08:26] LABS: Sedimentation Rate-Westergren 92 MM/HR (0-20)
--- NOTE | 2016-10-03 08:43 | Hospitalist Progress Note ---
Hospitalist: Subjective Interval history: Nursing reports he had urinary retention overnight and that urine was dark after I and O cath. +Flatus. Still poor oral intake but is taking ensure for lunch and dinner yesterday. No fever. No BM. Exam - Constitutional Vitals: Period Temp Pulse Resp BP Sys/Philippe Pulse Ox Last 24 Hr 97.8 F-99.5 F 62-78 17-32 122-144/52-70 91-96 Exam: Chronically ill appearing, MMM, sitting up in a chair RRR no M CTAB anteriorly but diminished at the bases, nonlabored Soft, NT, distended, positive bowel sounds Warm no c/c/e Results - Labs CBC & BMP: 10/03/16 06:19 10/03/16 06:19 - Impressions (1) Loss of appetite/ Anorexia Status: Acute Assessment and plan: Current Visit: Yes Likely due to pancreatitis and chronic medical conditions. calorie count. Change diet to full liquid diet and cont ensure. As long as getting calories in orally, will not have to start TPN but if poor oral intake persists, may need to consider this. (2) Retroperitoneal hematoma Status: Acute Assessment and plan: Hematocrit is stable. Monitor. Avoid all blood thinners and NSAIDS. Current Visit: Yes (3) Acute pancreatitis with ascites Status: Acute Assessment and plan: Slowly resolving. Serial Lipase. Current Visit: Yes CT chest/abd/pelvis reviewed 10/02- shows pancreatitis with peripancreatic fluid. No constipation or obstruction. Possible LLL pneumonia and small pleural effusion. (4) Acute respiratory failure Status: Acute Assessment and plan: Recovered patient is extubated is on the regular floor this time. Continue to monitor respiratory status and other vital signs. Increase activity with PT OT. Wean oxygen as tolerated Current Visit: Yes DVT prophylaxis D/W pt, daughter, , nurse and charge nurse. All questions answered. ? Rehab Quality Measures - VTE Contraindication to Pharmacological VTE Prophylaxis: Active Bleeding
[2016-10-03] MEDS: CIPROFLOXACIN INJ 400 MG in PREMIX 1 EACH IV SCH (08:54)
[2016-10-03] MEDS: LEVOTHYROXINE 50 MCG TABLET PO SCH (08:55)
[2016-10-03] MEDS: PANTOPRAZOLE 40 MG TABLET PO SCH ×2 (08:55→21:20)
[2016-10-03] MEDS: amLODIPine 10 MG TABLET PO SCH (08:55)
[2016-10-03] MEDS: ALLOPURINOL 100 MG TABLET PO SCH (08:55)
[2016-10-03] MEDS: METOPROLOL TARTRATE 100 MG TABLET PO SCH ×2 (08:55→21:20)
[2016-10-03] MEDS ORDERED: POTASSIUM CHLORIDE RIDER 20 MEQ in PREMIX 1 EACH IV PRN (11:34)
[2016-10-03] MEDS: LEVOFLOXACIN INJ 750 MG in PREMIX 1 EACH IV SCH (11:43)
[2016-10-03] MEDS: POTASSIUM CHLORIDE RIDER 10 MEQ in PREMIX 1 EACH IV PRN ×2 (15:10→16:27)
[2016-10-03] MEDS: TERAZOSIN 5 MG CAPSULE PO SCH (21:22)
[2016-10-03] MEDS: DORZOLAMIDE/TIMOLOL OPH SOLN 10 ML BOTTLE BOTH EYES SCH (21:24)
[2016-10-03] MEDS: PITAVASTATIN 2 MG TABLET PO SCH (21:24)
[2016-10-04] MEDS: ALBUTEROL/IPRATROPIUM 3 ML NEB RESP TX SCH ×6 (03:10→23:06)
--- NOTE | 2016-10-04 07:25 | Pulmonology Progress Note ---
Pulmonary - PN: Subj Interval history: This 76-year-old white male has pancreatitis. He had an ERCP yesterday. He has been on the ventilator overnight. He does have some bilateral atelectasis and small pleural effusions. He has required a good bit of fluid to keep his urine output up. ABGs look good this morning on 70% oxygen. Patient does not have any known significant underlying lung disease. He is responsive on low- dose propofol. Hopefully we can get him extubated this morning. 09/28/16 patient was able to be extubated yesterday. Had a PO2 of 90 on 5 L nasal biprong earlier this morning. Oxygen saturations measuring 94% present. Patient denies being short of breath but he is wheezing. Chest x-ray looks a little wet. We need to cut back on IV fluids. I realize he has an elevated creatinine and his urine output was low. Over the last 24 hours urine output has picked up considerably. He does not have any underlying chronic lung disease. Wheezing and dyspnea are due to fluid overload. This is related to his pancreatitis. Need to watch closely to be sure he does not develop ARDS. Keeping him on the dry side will help with that. Chemistries are not reported yet this morning. Creatinine was 2.8 yesterday. That is up from 1.4 the day before 10/01/2016 patient now on the gonzales. He is eating breakfast. Obviously his pancreatitis is improved. Renal function has improved with creatinine down to 1.7. Chest x-ray still shows small pleural effusions and some bibasilar atelectasis bilaterally yesterday's film. I think we are still a little ahead on fluid. We will continue with Lasix. Recheck x-ray tomorrow. He also has some atelectasis and likely bronchopneumonia. Overall improved. 10/02/2016 patient not eating much. I had stopped his fluids earlier and given Lasix. His creatinine is down to 1.7. He appears to be getting a little dry. I will started back on some IV fluids. Hopefully he will get a better appetite as time goes on. Certainly not surprising that he is not hungry with pancreatitis. I do not think any appetite stimulants would help. Lipase is still around the thousand. His lungs are sounding better but he has some mild wheezing. Chest x-ray is pending. Has some atelectatic pneumonitis on previous films. Remains on intravenous Cipro. 10/03/2016 patient drinking some diet supplements and that is about it. I had restarted some IV fluids yesterday because he look to be getting dry. Those have been discontinued. I will stop the Lasix as well then. Yesterday's chest x-ray showed marked improvement in the pleural effusions. The CT scan shows small pleural effusions and some atelectasis at the left base. I think the effusion on the left side is sympathetic to the pancreatitis. I do not think he is fluid overloaded at present. Need to watch his renal function closely. If his creatinine has gone back up with today's labs and he should have some more IV fluid. The lab reports of course are not out yet this morning. 10/04/2016 he is taking a little bit of oral nourishment. We do need to watch his fluid status closely as his renal function can get worse if he does not get enough fluid in. He is running a low-grade fever today. I would be concerned about complications of his pancreatitis as the cause for that. His chest x-ray has shown improvement. Exam (Progress Note) - Constitutional Vitals: Period Temp Pulse Resp BP Sys/Philippe Pulse Ox Last 24 Hr 98.2 F-100.4 F 68-78 14-20 137-159/72-78 86-98 Exam: Patient is responsive, sitting up in a chair. Vital signs are normal except temperature 100.4. Pupils react to light. Neck supple no bruits. Chest reveals mild end expiratory bilateral wheezes. Heart normal rate rhythm no murmurs. abdomen somewhat protuberant mildly tender bowel present. Extremities no clubbing cyanosis. Trace of edema. Calves nontender. Results - Labs CBC & BMP: 10/03/16 06:19 10/03/16 06:19 Lab Results: I have reviewed the past 24 hour labs Assessment and Plan (1) Acute respiratory failure Status: Acute Assessment and plan: ABGs show a persistent respiratory acidosis despite mechanical ventilation. I have adjusted the ventilator settings. May need to diurese. Difficult to tell whether he has a factor of congestive heart failure involved. Will get echocardiogram and BNP 09/27/2016 ABGs improved. PO2 143 on 70% with 5 of PEEP. Patient appears alert and responsive. Will try on CPAP this morning and see if we can get him extubated. 09/28/2016 patient was extubated. Still requiring 5 L nasal biprong. We need to diurese him a little if his renal function will allow. 10/01/2016 patient has done well with extubation. Reducing oxygen. He is still wheezing. no previous history of lung disease. Treating for both bronchitis with bronchospasm and fluid overload. 10/02/2016 still requiring some nasal oxygen. Otherwise respiratory failure has resolved. He has atelectatic pneumonitis with bronchospasm. 10/03/2016 this is resolved. Oxygen saturation 94% on room air. 10/04/2016 resolved. No longer requiring nasal oxygen. Current Visit: Yes (2) Nontraumatic retroperitoneal hematoma Status: Acute Assessment and plan: He was found to have some blood in the retroperitoneal space the etiology of which is not clear but suggested to be from a kidney. 09/27/2016 defer to surgery. 09/28/2016 hematocrit stable at 33. 10/03/2016 this is apparently stable on CT scan. 10/04/2016 this of course could cause fever. Defer to GI and/or surgery for follow-up of the retroperitoneal hematoma. Current Visit: Yes (3) Acute pancreatitis Status: Acute Assessment and plan: Markedly elevated lipase. Elevated bilirubin. He has had an ERCP as this was suspected to be secondary to gallstone pancreatitis. 09/27/2016 does not appear to be having severe pain. Watch for pulmonary complications such as pulmonary edema from fluid replacement or ARDS. 09/28/2016 patient not having abdominal pain. Does have some back pain. He has bowel sounds. His lipase has been decreasing. 10/01/2016 this appears to be resolving. Bilirubin falling. Recheck amylase and lipase. 10/02/2016 lipase remains elevated. Symptoms are better. No abdominal pain. 10/03/2016 no abdominal pain. Poor appetite. Will take a while for this to continue resolving. 10/04/2016 although is not having pain I do think he still has active pancreatitis. Current Visit: Yes (4) Jaundice Status: Acute Assessment and plan: Bilirubin was 6 yesterday. 09/28/2016 labs are pending 10/01/2016 bilirubin down to 2.8. Current Visit: Yes (5) Acute kidney injury Status: Acute Assessment and plan: His creatinine had come down to 1.6. We need to recheck that tomorrow. Keep up with his fluid closely. Current Visit: Yes
[2016-10-04 08:20] LABS: Basophils # 0.1 10*3/uL (0.0-0.2); Basophils % 0.3 % (0.0-0.8); Eosinophils # 0.1 10*3/uL (0.0-0.87); Hematocrit 30.9 VOL% (42.0-52.0); Hemoglobin 10.2 GM/DL (14.0-18.0); Immature Granulocytes % 2.3 %; Immature Granulocytes Absolute 0.34 #; Lymphocytes # 0.9 10*3/uL (1.4-4.0); Lymphocytes % 6.4 % (21.2-54.2); Mean Corpuscular Hemoglobin 27 PG (27-34); Mean Corpuscular Volume 82.6 FL (87-102); Mean Platelet Volume 12.4 FL (9.6-12.0); Neutrophils # 12.1 10*3/uL (1.4-7.4); Platelet Count 235 T/CUMM (130-400); Red Blood Count 3.74 MC/CUMM (3.8-5.5); Red Cell Distribution Width 15.9 % (9.3-17.3); White Blood Count 14.5 T/CUMM (4-12)
[2016-10-04 08:49] LABS: Albumin 2.3 G/DL (3.4-5.0); Calcium 7.4 MG/DL (8.5-10.1); Magnesium 2.1 MG/DL (1.8-2.4); Osmolality,Calculated 273.1 MOS/KG (273-304); Potassium 3.7 MMOL/L (3.5-5.1)
[2016-10-04 08:54] LABS: Risk Ratio 4.47; VLDL CHOLESTEROL 23.4 MG/DL
[2016-10-04] MEDS: LEVOTHYROXINE 50 MCG TABLET PO SCH (11:18)
[2016-10-04] MEDS: PANTOPRAZOLE 40 MG TABLET PO SCH ×2 (11:18→21:24)
[2016-10-04] MEDS: METOPROLOL TARTRATE 100 MG TABLET PO SCH ×2 (11:18→21:22)
[2016-10-04] MEDS: ALLOPURINOL 100 MG TABLET PO SCH (11:19)
[2016-10-04] MEDS: amLODIPine 10 MG TABLET PO SCH (11:19)
[2016-10-04] MEDS: LEVOFLOXACIN INJ 750 MG in PREMIX 1 EACH IV SCH (11:29)
--- NOTE | 2016-10-04 12:55 | Hospitalist Progress Note ---
Hospitalist: Subjective Interval history: Patient's oral intake is improving. He is now mobilizing secretions and is coughing up yellow sputum. No chest pain. No abdominal pain. He did have a bowel movement overnight. He had a temp of 99.8 this a.m. Exam - Constitutional Vitals: Period Temp Pulse Resp BP Sys/Philippe Pulse Ox Last 24 Hr 98.2 F-100.4 F 68-88 14-20 130-159/64-78 86-98 Exam: Chronically ill appearing, MMM, lying in the bed RRR no M CTAB anteriorly with a slight expiratory wheeze that was audible when listened at his neck. Diminished at the bases, nonlabored Soft, NT, distended, positive bowel sounds Warm no c/c/e Results - Labs CBC & BMP: 10/04/16 07:30 10/04/16 07:30 - Impressions (1) Loss of appetite/ Anorexia Status: Acute Assessment and plan: Current Visit: Yes Likely due to pancreatitis and chronic medical conditions. calorie count in progress. Continue full liquid diet and Ensure for now. Will hold off on starting TPN for now since his oral intake is improving. (2) Retroperitoneal hematoma Status: Acute Assessment and plan: Hematocrit is stable. Monitor. Avoid all blood thinners and NSAIDS. Current Visit: Yes (3) Acute pancreatitis with ascites Status: Acute Assessment and plan: Slowly resolving. Serial Lipase. Current Visit: Yes CT chest/abd/pelvis reviewed 10/02- shows pancreatitis with peripancreatic fluid. No constipation or obstruction. Possible LLL pneumonia and small pleural effusion. (4) Acute respiratory failure due to suspected left lower lobe pneumonia Status: Acute Assessment and plan: Recovered patient is extubated is on the regular floor this time. Continue antibiotics, mucolytic, pulmonary toilet, and oxygen as needed. Continue PT/OT and wean oxygen as tolerated. Current Visit: Yes (5) Gram-positive cocci positive blood culture in 1 out of 2 bottles (MRSA negative)-I suspect contaminant -Follow-up blood culture results. If significant recheck blood culture and adjust antibiotics. (6) Acute renal failure on chronic kidney disease stage III -Creatinine improved down to 1.6. Monitor I's and O's and serial renal function panels. DVT prophylaxis D/W pt, daughter. All questions answered. ? Rehab vs. home with home health pending clinical course. Overall patient appears to be slowly improving. Labs in the a.m. Quality Measures - VTE Contraindication to Pharmacological VTE Prophylaxis: Active Bleeding
[2016-10-04] MEDS: ACETAMINOPHEN 325 MG TABLET PO PRN (13:57)
[2016-10-04] MEDS: DORZOLAMIDE/TIMOLOL OPH SOLN 10 ML BOTTLE BOTH EYES SCH (21:22)
[2016-10-04] MEDS: PITAVASTATIN 2 MG TABLET PO SCH (21:22)
[2016-10-04] MEDS: TERAZOSIN 5 MG CAPSULE PO SCH (21:22)
[2016-10-04] MEDS: MELATONIN 3 MG TABLET PO PRN (21:23)
[2016-10-05] MEDS: ALBUTEROL/IPRATROPIUM 3 ML NEB RESP TX SCH ×6 (02:49→23:48)
[2016-10-05] MEDS: ACETAMINOPHEN 325 MG TABLET PO PRN ×3 (06:06→22:36)
[2016-10-05 07:30] LABS: Basophils % 0.2 % (0.0-0.8); Eosinophils # 0.1 10*3/uL (0.0-0.87); Hematocrit 29.6 VOL% (42.0-52.0); Hemoglobin 9.8 GM/DL (14.0-18.0); Immature Granulocytes Absolute 0.25 #; Lymphocytes # 0.9 10*3/uL (1.4-4.0); Lymphocytes % 6.9 % (21.2-54.2); Mean Corpuscular HGB Conc 33.1 GM/DL (32-36); Mean Corpuscular Hemoglobin 27 PG (27-34); Mean Corpuscular Volume 81.8 FL (87-102); Mean Platelet Volume 13.2 FL (9.6-12.0); Monocytes % 8.2 % (1.7-12.7); Neutrophils # 10.3 10*3/uL (1.4-7.4); Neutrophils % 81.7 % (38.7-73.9); Platelet Count 170 T/CUMM (130-400); Red Blood Count 3.62 MC/CUMM (3.8-5.5); Red Cell Distribution Width 15.8 % (9.3-17.3); White Blood Count 12.6 T/CUMM (4-12)
[2016-10-05 07:50] LABS: Hypochromasia 1+; Platelet Estimate Normal
[2016-10-05 08:05] LABS: Calcium 7.6 MG/DL (8.5-10.1); Magnesium 2.3 MG/DL (1.8-2.4); Osmolality,Calculated 272.2 MOS/KG (273-304); Potassium 3.9 MMOL/L (3.5-5.1)
--- NOTE | 2016-10-05 08:56 | XRay Report ---
XR chest 2V Date: 10/05/2016 4:00 AM History: Pancreatitis, pneumonia, atelectasis Comparison: 10/02/2016 Technique: PA and lateral chest Findings: Stable cardiomegaly with uncoiling of the aorta. Persistent atelectasis/infiltration both lower lung zones. Stable mediastinum and osseous structures. Impression: Residual atelectasis/infiltration in both lower lung zones. Stable cardiomegaly. PROCEDURE INTERPRETED AT [facility] DEPARTMENT OF RADIOLOGY Final Report Signed by: Dr. Kristi Casas
--- NOTE | 2016-10-05 09:02 | Pulmonology Progress Note ---
Pulmonary - PN: Subj Interval history: This 76-year-old white male has pancreatitis. He had an ERCP yesterday. He has been on the ventilator overnight. He does have some bilateral atelectasis and small pleural effusions. He has required a good bit of fluid to keep his urine output up. ABGs look good this morning on 70% oxygen. Patient does not have any known significant underlying lung disease. He is responsive on low- dose propofol. Hopefully we can get him extubated this morning. 09/28/16 patient was able to be extubated yesterday. Had a PO2 of 90 on 5 L nasal biprong earlier this morning. Oxygen saturations measuring 94% present. Patient denies being short of breath but he is wheezing. Chest x-ray looks a little wet. We need to cut back on IV fluids. I realize he has an elevated creatinine and his urine output was low. Over the last 24 hours urine output has picked up considerably. He does not have any underlying chronic lung disease. Wheezing and dyspnea are due to fluid overload. This is related to his pancreatitis. Need to watch closely to be sure he does not develop ARDS. Keeping him on the dry side will help with that. Chemistries are not reported yet this morning. Creatinine was 2.8 yesterday. That is up from 1.4 the day before 10/01/2016 patient now on the gonzales. He is eating breakfast. Obviously his pancreatitis is improved. Renal function has improved with creatinine down to 1.7. Chest x-ray still shows small pleural effusions and some bibasilar atelectasis bilaterally yesterday's film. I think we are still a little ahead on fluid. We will continue with Lasix. Recheck x-ray tomorrow. He also has some atelectasis and likely bronchopneumonia. Overall improved. 10/02/2016 patient not eating much. I had stopped his fluids earlier and given Lasix. His creatinine is down to 1.7. He appears to be getting a little dry. I will started back on some IV fluids. Hopefully he will get a better appetite as time goes on. Certainly not surprising that he is not hungry with pancreatitis. I do not think any appetite stimulants would help. Lipase is still around the thousand. His lungs are sounding better but he has some mild wheezing. Chest x-ray is pending. Has some atelectatic pneumonitis on previous films. Remains on intravenous Cipro. 10/03/2016 patient drinking some diet supplements and that is about it. I had restarted some IV fluids yesterday because he look to be getting dry. Those have been discontinued. I will stop the Lasix as well then. Yesterday's chest x-ray showed marked improvement in the pleural effusions. The CT scan shows small pleural effusions and some atelectasis at the left base. I think the effusion on the left side is sympathetic to the pancreatitis. I do not think he is fluid overloaded at present. Need to watch his renal function closely. If his creatinine has gone back up with today's labs and he should have some more IV fluid. The lab reports of course are not out yet this morning. 10/04/2016 he is taking a little bit of oral nourishment. We do need to watch his fluid status closely as his renal function can get worse if he does not get enough fluid in. He is running a low-grade fever today. I would be concerned about complications of his pancreatitis as the cause for that. His chest x-ray has shown improvement. 10/05/2016 he is drinking Ensure and liquids okay. Still not much appetite for regular food. His chest x-ray is showing some residual plantar like atelectasis in both mid lung baker. It actually looks a little better than the last film 3 days ago. He is using incentive spirometry regularly in the room. He had a low-grade fever 2 days ago and is on Levaquin. His lipase remains around 1000. Have no other suggestions as far as his pancreatitis. May want to ask GI to look at him again if his poor appetite persists an elevated lipase persist. Exam (Progress Note) - Constitutional Vitals: Period Temp Pulse Resp BP Sys/Philippe Pulse Ox Last 24 Hr 97.0 F-99.8 F 66-88 16-22 130-162/64-84 90-97 Exam: Patient is responsive, sitting up in a chair. Vital signs are normal. Pupils react to light. Neck supple no bruits. Chest reveals mild rhonchi. Heart normal rate rhythm no murmurs. abdomen somewhat protuberant non- tender bowel present. Extremities no clubbing cyanosis. Trace of edema. Calves nontender. Results - Labs CBC & BMP: 10/05/16 06:23 10/05/16 06:23 Lab Results: I have reviewed the past 24 hour labs - Diagnostic Findings Procedure: Chest x-ray: image reviewed by me (Mild plantar like atelectasis both mid lung baker. Improved from 10/02/2016) Assessment and Plan (1) Acute respiratory failure Status: Acute Assessment and plan: ABGs show a persistent respiratory acidosis despite mechanical ventilation. I have adjusted the ventilator settings. May need to diurese. Difficult to tell whether he has a factor of congestive heart failure involved. Will get echocardiogram and BNP 09/27/2016 ABGs improved. PO2 143 on 70% with 5 of PEEP. Patient appears alert and responsive. Will try on CPAP this morning and see if we can get him extubated. 09/28/2016 patient was extubated. Still requiring 5 L nasal biprong. We need to diurese him a little if his renal function will allow. 10/01/2016 patient has done well with extubation. Reducing oxygen. He is still wheezing. no previous history of lung disease. Treating for both bronchitis with bronchospasm and fluid overload. 10/02/2016 still requiring some nasal oxygen. Otherwise respiratory failure has resolved. He has atelectatic pneumonitis with bronchospasm. 10/03/2016 this is resolved. Oxygen saturation 94% on room air. 10/04/2016 resolved. No longer requiring nasal oxygen. 10/05/2016 respiratory failure has resolved. Current Visit: Yes (2) Nontraumatic retroperitoneal hematoma Status: Acute Assessment and plan: He was found to have some blood in the retroperitoneal space the etiology of which is not clear but suggested to be from a kidney. 09/27/2016 defer to surgery. 09/28/2016 hematocrit stable at 33. 10/03/2016 this is apparently stable on CT scan. 10/04/2016 this of course could cause fever. Defer to GI and/or surgery for follow-up of the retroperitoneal hematoma. Current Visit: Yes (3) Acute pancreatitis Status: Acute Assessment and plan: Markedly elevated lipase. Elevated bilirubin. He has had an ERCP as this was suspected to be secondary to gallstone pancreatitis. 09/27/2016 does not appear to be having severe pain. Watch for pulmonary complications such as pulmonary edema from fluid replacement or ARDS. 09/28/2016 patient not having abdominal pain. Does have some back pain. He has bowel sounds. His lipase has been decreasing. 10/01/2016 this appears to be resolving. Bilirubin falling. Recheck amylase and lipase. 10/02/2016 lipase remains elevated. Symptoms are better. No abdominal pain. 10/03/2016 no abdominal pain. Poor appetite. Will take a while for this to continue resolving. 10/04/2016 although is not having pain I do think he still has active pancreatitis. 10/05/2016 taking in liquids a little better. Poor appetite persists. Defer to GI. Current Visit: Yes (4) Jaundice Status: Acute Assessment and plan: Bilirubin was 6 yesterday. 09/28/2016 labs are pending 10/01/2016 bilirubin down to 2.8. 10/05/2016 is not visibly jaundiced now. Current Visit: Yes (5) Acute kidney injury Status: Acute Assessment and plan: His creatinine had come down to 1.6. We need to recheck that tomorrow. Keep up with his fluid closely. 10/05/2016 creatinine down to 1.4. Taking adequate amount of fluid p.o. Current Visit: Yes
[2016-10-05] MEDS: PANTOPRAZOLE 40 MG TABLET PO SCH ×2 (09:54→22:08)
[2016-10-05] MEDS: LEVOTHYROXINE 50 MCG TABLET PO SCH (09:54)
[2016-10-05] MEDS: METOPROLOL TARTRATE 100 MG TABLET PO SCH ×2 (09:54→22:08)
[2016-10-05] MEDS: amLODIPine 10 MG TABLET PO SCH (09:55)
[2016-10-05] MEDS: ALLOPURINOL 100 MG TABLET PO SCH (09:55)
--- NOTE | 2016-10-05 12:06 | Hospitalist Progress Note ---
Hospitalist: Subjective Interval history: reports patient is feeling better. His cough is less productive today. He has had 2 bowel movement yesterday and one large bowel movement today. He has walked around the room and in the vasquez with therapy today. No chest or abdominal pain reported Exam - Constitutional Vitals: Period Temp Pulse Resp BP Sys/Philippe Pulse Ox Last 24 Hr 97.0 F-99.5 F 66-83 16-22 132-162/64-84 90-97 Exam: Chronically ill appearing, MMM, lying in the bed, resting RRR no M CTAB anteriorly with a slight expiratory wheeze that was audible when listened at his neck. Diminished at the bases, nonlabored Soft, NT, distended, positive bowel sounds Warm no c/c/e Results - Labs CBC & BMP: 10/05/16 06:23 10/05/16 06:23 - Impressions (1) Loss of appetite/ Anorexia-slowly improving on the full liquid diet Status: Acute Assessment and plan: Current Visit: Yes Likely due to pancreatitis and chronic medical conditions. calorie count in progress. Continue full liquid diet and Ensure for now. Will hold off on starting TPN for now since his oral intake is improving. (2) Retroperitoneal hematoma Status: Acute Assessment and plan: Hematocrit is stable. Monitor. Avoid all blood thinners and NSAIDS. Current Visit: Yes (3) Acute pancreatitis with ascites Status: Acute Assessment and plan: Slowly resolving. Serial Lipase. Current Visit: Yes CT chest/abd/pelvis reviewed 10/02- shows pancreatitis with peripancreatic fluid. No constipation or obstruction. Possible LLL pneumonia and small pleural effusion. GI was reconsulted by pulmonology today. If calorie count does not show adequate intake, we may need to consider TPN though the patient's oral intake is improving daily. (4) Acute respiratory failure now with suspected left lower lobe pneumonia ( possibly due to gram-positive and gram-negative organisms) Status: Acute Assessment and plan: Recovered patient is extubated is on the regular floor this time. Continue antibiotics, mucolytic, pulmonary toilet, and oxygen as needed. Continue PT/OT and wean oxygen as tolerated. Current Visit: Yes (5) Gram-positive cocci positive blood culture in 1 out of 2 bottles (MRSA negative)-I suspect contaminant -Follow-up blood culture results. If significant recheck blood culture and adjust antibiotics. (6) Acute renal failure on chronic kidney disease stage III -Creatinine improved down to 1.4. Monitor I's and O's and serial renal function panels. DVT prophylaxis D/W , nurse, case management. All questions answered. ? Rehab vs. home with home health pending clinical course. Overall patient appears to be slowly improving. Quality Measures - VTE Contraindication to Pharmacological VTE Prophylaxis: Active Bleeding
[2016-10-05] MEDS: LEVOFLOXACIN INJ 750 MG in PREMIX 1 EACH IV SCH (12:30)
[2016-10-05] MEDS: TERAZOSIN 5 MG CAPSULE PO SCH (22:09)
[2016-10-05] MEDS: PITAVASTATIN 2 MG TABLET PO SCH (22:10)
[2016-10-05] MEDS: DORZOLAMIDE/TIMOLOL OPH SOLN 10 ML BOTTLE BOTH EYES SCH (22:11)
[2016-10-06] MEDS: ALBUTEROL/IPRATROPIUM 3 ML NEB RESP TX SCH ×5 (02:47→19:52)
[2016-10-06] MEDS: amLODIPine 10 MG TABLET PO SCH (08:23)
[2016-10-06] MEDS: LEVOTHYROXINE 50 MCG TABLET PO SCH (08:23)
[2016-10-06] MEDS: ALLOPURINOL 100 MG TABLET PO SCH (08:23)
[2016-10-06] MEDS: PANTOPRAZOLE 40 MG TABLET PO SCH ×2 (08:23→20:48)
[2016-10-06] MEDS: METOPROLOL TARTRATE 100 MG TABLET PO SCH ×2 (08:23→20:48)
--- NOTE | 2016-10-06 08:33 | Hospitalist Progress Note ---
Hospitalist: Subjective Interval history: family reports he is not sleeping well at night. No fever. No cp or SOB. when asked, he states "I just don't feel good." He is eating 1/2 of his full liquid diet consistently. Denies abd pain. +BM yesterday. Cough productive of yellowish sputum. Exam - Constitutional Vitals: Period Temp Pulse Resp BP Sys/Philippe Pulse Ox Last 24 Hr 68 F-99.5 F 62-91 18-23 129-162/62-75 91-99 Exam: Chronically ill appearing, MMM, lying in the bed RRR no M CTAB Better aeration, nonlabored Soft, NT, distended, positive bowel sounds Warm no c/c/e Results - Labs CBC & BMP: 10/05/16 06:23 10/05/16 06:23 - Impressions (1) Loss of appetite/ Anorexia-slowly improving on the full liquid diet Status: Acute Assessment and plan: Current Visit: Yes Likely due to pancreatitis and chronic medical conditions. calorie count in progress. Continue full liquid diet and Ensure for now. Will hold off on starting TPN for now since his oral intake is improving. (2) Retroperitoneal hematoma Status: Acute Assessment and plan: Hematocrit is stable. Monitor. Avoid all blood thinners and NSAIDS. Current Visit: Yes (3) Acute pancreatitis with ascites Status: Acute Assessment and plan: Slowly resolving. Serial Lipase. Current Visit: Yes CT chest/abd/pelvis reviewed 10/02- shows pancreatitis with peripancreatic fluid. No constipation or obstruction. Possible LLL pneumonia and small pleural effusion. GI was reconsulted by pulmonology today. If calorie count does not show adequate intake, we may need to consider TPN though the patient's oral intake is improving daily. (4) Acute respiratory failure now with suspected left lower lobe pneumonia ( possibly due to gram-positive and gram-negative organisms) Status: Acute Assessment and plan: Recovered patient is extubated is on the regular floor this time. Continue antibiotics, mucolytic, pulmonary toilet, and oxygen as needed. Continue PT/OT and wean oxygen as tolerated. Current Visit: Yes (5) Gram-positive cocci positive blood culture in 1 out of 2 bottles (MRSA negative)-I suspect contaminant -Follow-up blood culture results. If significant recheck blood culture and adjust antibiotics. (6) Acute renal failure on chronic kidney disease stage III -Creatinine improved down to 1.4. Monitor I's and O's and serial renal function panels. (7) Insomnia - Will try Restoril prn since Melatonin is not helping. DVT prophylaxis D/W pt, and daughter. All questions answered. ? Rehab vs. home with home health pending clinical course. Overall patient appears to be slowly improving. I will be away several days. One of my associates will follow in my absence. Quality Measures - VTE Contraindication to Pharmacological VTE Prophylaxis: Active Bleeding
[2016-10-06] MEDS: ACETAMINOPHEN 325 MG TABLET PO PRN ×2 (09:23→19:48)
[2016-10-06] MEDS: LEVOFLOXACIN INJ 750 MG in PREMIX 1 EACH IV SCH (10:46)
[2016-10-06] MEDS ORDERED: TEMAZEPAM 7.5 MG CAPSULE PO PRN (12:21)
[2016-10-06] MEDS: DORZOLAMIDE/TIMOLOL OPH SOLN 10 ML BOTTLE BOTH EYES SCH (20:46)
[2016-10-06] MEDS: PITAVASTATIN 2 MG TABLET PO SCH (20:47)
[2016-10-06] MEDS: TERAZOSIN 5 MG CAPSULE PO SCH (20:48)
[2016-10-06] MEDS: ZALEPLON 5 MG CAPSULE PO PRN (23:13)
[2016-10-07] MEDS: ALBUTEROL/IPRATROPIUM 3 ML NEB RESP TX SCH ×6 (00:22→19:51)
[2016-10-07] MEDS: ACETAMINOPHEN 325 MG TABLET PO PRN ×3 (01:47→20:45)
[2016-10-07 06:05] LABS: Basophils % 0.4 % (0.0-0.8); Eosinophils # 0.2 10*3/uL (0.0-0.87); Eosinophils % 2.1 % (0.00-10.9); Hematocrit 29.9 VOL% (42.0-52.0); Hemoglobin 9.9 GM/DL (14.0-18.0); Immature Granulocytes % 1.8 %; Immature Granulocytes Absolute 0.18 #; Lymphocytes # 0.9 10*3/uL (1.4-4.0); Lymphocytes % 9.3 % (21.2-54.2); Mean Corpuscular HGB Conc 33.1 GM/DL (32-36); Mean Corpuscular Hemoglobin 28 PG (27-34); Mean Corpuscular Volume 83.3 FL (87-102); Mean Platelet Volume 12.7 FL (9.6-12.0); Monocytes # 0.9 10*3/uL (0.11-0.8); Monocytes % 9.5 % (1.7-12.7); Neutrophils # 7.6 10*3/uL (1.4-7.4); Neutrophils % 76.9 % (38.7-73.9); Platelet Count 204 T/CUMM (130-400); Red Blood Count 3.59 MC/CUMM (3.8-5.5); Red Cell Distribution Width 15.9 % (9.3-17.3); White Blood Count 9.8 T/CUMM (4-12)
[2016-10-07 06:35] LABS: Albumin 2.2 G/DL (3.4-5.0); Bilirubin,Total 1.1 MG/DL (0.2-1.0); Calcium 7.7 MG/DL (8.5-10.1); Magnesium 2.4 MG/DL (1.8-2.4); Osmolality,Calculated 272.1 MOS/KG (273-304); Phosphorous 3.1 MG/DL (2.5-4.9); Potassium 4.5 MMOL/L (3.5-5.1); Total Protein 5.7 G/DL (6.4-8.3)
[2016-10-07 07:36] LABS: Band Neutrophils 10 % (0-10); Eosinophils 1 % (0-10); Hypochromasia 2+; Lymphocytes 8 % (20-55); Segmented Neutrophils 70 % (50-85); Total Cells Counted 100
[2016-10-07 07:37] LABS: Microcytosis 1+; Platelet Estimate Adequate
[2016-10-07] MEDS: PANTOPRAZOLE 40 MG TABLET PO SCH ×2 (10:32→20:45)
[2016-10-07] MEDS: ALLOPURINOL 100 MG TABLET PO SCH (10:32)
[2016-10-07] MEDS: METOPROLOL TARTRATE 100 MG TABLET PO SCH ×2 (10:32→20:45)
[2016-10-07] MEDS: amLODIPine 10 MG TABLET PO SCH (10:32)
[2016-10-07] MEDS: LEVOTHYROXINE 50 MCG TABLET PO SCH (10:33)
--- NOTE | 2016-10-07 10:35 | Hospitalist Progress Note ---
Assessment and Plan (1) Jaundice Status: Acute Assessment and plan: The patient is improving slower than he would wish. I reviewed the laboratory values and the reasons for optimism with the patient and his today. The patient continues on appropriate antibiotic. The patient had recent blood culture with Staphylococcus auricularis which is likely a contaminant from the skin. The patient's mild AA gradient is likely due to healing ARDS. We will continue advancing diet as tolerated and continue physical therapy. Current Visit: Yes (2) Nontraumatic retroperitoneal hematoma Status: Acute Current Visit: Yes (3) Acute pancreatitis Status: Acute Current Visit: Yes Hospitalist: Subjective Interval history: Mr. Aguilera was initially admitted with severe pancreatitis associated with biliary obstruction. The patient had ERCP. The patient developed systemic inflammatory response syndrome with acute kidney injury, noncardiac pulmonary edema, and sepsis syndrome. The patient improved although he required mechanical ventilation. The patient continues with moderately increased AA gradient due to non-cardiac pulmonary edema which is gradually improving. The patient's lipase is now 579. The patient's bilirubin is now 1.1. The patient' s creatinine is now 1.3. All of these laboratory indicators suggest gradually improving patient with supportive care. The patient tolerated regular diet for breakfast this morning. He is not having any increased abdominal pain but just feels generally sick. The patient does suffer insomnia which preceded the illness. Exam - Constitutional Vitals: Period Temp Pulse Resp BP Sys/Philippe Pulse Ox Last 24 Hr 97.6 F-99.7 F 18-97 16-20 120-154/51-72 93-99 Exam: Constitutional System: No distress. No tremulousness. The patient has minimal abdominal pain Head: Normocephalic, atraumatic. Ears, Nose and Throat System: No evidence of Otitis or Mastoiditis. No epistaxis or discharge Eyes System: Pupils equal, round, and reactive. Extraocular muscles intact. Neck: Supple, without adenopathy, No jugular venous distention. No thyromegaly , neck mass, or prior surgery apparent. Respiratory System: Chest clear to auscultation. Few rales in bases Cardiovascular System: Heart with regular tachycardic rate and rhythm. No murmur. GI System: Abdomen soft, distended, minimally tender without guarding. Normoactive bowel sounds present. Musculoskeletal System: limbs with trace pedal edema. Full distal pulses. Neurological System: No discernable sensory deficit. No aphasia Psychiatric System: Conversation is rational Results - Labs CBC & BMP: 10/07/16 05:31 10/07/16 05:31 Lab Results: I have reviewed the past 24 hour labs Quality Measures - VTE Contraindication to Pharmacological VTE Prophylaxis: Active Bleeding
[2016-10-07] MEDS: LEVOFLOXACIN INJ 750 MG in PREMIX 1 EACH IV SCH (12:04)
[2016-10-07] MEDS: PITAVASTATIN 2 MG TABLET PO SCH (20:44)
[2016-10-07] MEDS: DORZOLAMIDE/TIMOLOL OPH SOLN 10 ML BOTTLE BOTH EYES SCH (20:45)
[2016-10-07] MEDS: ZALEPLON 5 MG CAPSULE PO PRN (20:45)
[2016-10-07] MEDS: TERAZOSIN 5 MG CAPSULE PO SCH (20:46)
[2016-10-08] MEDS: ALBUTEROL/IPRATROPIUM 3 ML NEB RESP TX SCH ×3 (00:58→07:15)
[2016-10-08] MEDS: ACETAMINOPHEN 325 MG TABLET PO PRN (03:55)
[2016-10-08 05:12] LABS: Basophils # 0.1 10*3/uL (0.0-0.2); Basophils % 0.5 % (0.0-0.8); Eosinophils # 0.2 10*3/uL (0.0-0.87); Hematocrit 32.7 VOL% (42.0-52.0); Hemoglobin 10.5 GM/DL (14.0-18.0); Immature Granulocytes % 1.8 %; Lymphocytes # 1.4 10*3/uL (1.4-4.0); Lymphocytes % 12.2 % (21.2-54.2); Mean Corpuscular HGB Conc 32.1 GM/DL (32-36); Mean Corpuscular Hemoglobin 28 PG (27-34); Mean Corpuscular Volume 85.8 FL (87-102); Mean Platelet Volume 12.2 FL (9.6-12.0); Monocytes # 1.1 10*3/uL (0.11-0.8); Monocytes % 9.7 % (1.7-12.7); Neutrophils # 8.2 10*3/uL (1.4-7.4); Neutrophils % 73.8 % (38.7-73.9); Platelet Count 322 T/CUMM (130-400); Red Blood Count 3.81 MC/CUMM (3.8-5.5); Red Cell Distribution Width 15.9 % (9.3-17.3); White Blood Count 11.1 T/CUMM (4-12)
[2016-10-08 05:54] LABS: Albumin 2.4 G/DL (3.4-5.0); Bilirubin,Total 1.1 MG/DL (0.2-1.0); Calcium 8.1 MG/DL (8.5-10.1); Osmolality,Calculated 277.7 MOS/KG (273-304); Potassium 4.7 MMOL/L (3.5-5.1); Total Protein 6.3 G/DL (6.4-8.3)
--- NOTE | 2016-10-08 08:44 | Pulmonology Progress Note ---
Pulmonary - PN: Subj Interval history: This 76-year-old white male has pancreatitis. He had an ERCP yesterday. He has been on the ventilator overnight. He does have some bilateral atelectasis and small pleural effusions. He has required a good bit of fluid to keep his urine output up. ABGs look good this morning on 70% oxygen. Patient does not have any known significant underlying lung disease. He is responsive on low- dose propofol. Hopefully we can get him extubated this morning. 09/28/16 patient was able to be extubated yesterday. Had a PO2 of 90 on 5 L nasal biprong earlier this morning. Oxygen saturations measuring 94% present. Patient denies being short of breath but he is wheezing. Chest x-ray looks a little wet. We need to cut back on IV fluids. I realize he has an elevated creatinine and his urine output was low. Over the last 24 hours urine output has picked up considerably. He does not have any underlying chronic lung disease. Wheezing and dyspnea are due to fluid overload. This is related to his pancreatitis. Need to watch closely to be sure he does not develop ARDS. Keeping him on the dry side will help with that. Chemistries are not reported yet this morning. Creatinine was 2.8 yesterday. That is up from 1.4 the day before 10/01/2016 patient now on the gonzales. He is eating breakfast. Obviously his pancreatitis is improved. Renal function has improved with creatinine down to 1.7. Chest x-ray still shows small pleural effusions and some bibasilar atelectasis bilaterally yesterday's film. I think we are still a little ahead on fluid. We will continue with Lasix. Recheck x-ray tomorrow. He also has some atelectasis and likely bronchopneumonia. Overall improved. 10/02/2016 patient not eating much. I had stopped his fluids earlier and given Lasix. His creatinine is down to 1.7. He appears to be getting a little dry. I will started back on some IV fluids. Hopefully he will get a better appetite as time goes on. Certainly not surprising that he is not hungry with pancreatitis. I do not think any appetite stimulants would help. Lipase is still around the thousand. His lungs are sounding better but he has some mild wheezing. Chest x-ray is pending. Has some atelectatic pneumonitis on previous films. Remains on intravenous Cipro. 10/03/2016 patient drinking some diet supplements and that is about it. I had restarted some IV fluids yesterday because he look to be getting dry. Those have been discontinued. I will stop the Lasix as well then. Yesterday's chest x-ray showed marked improvement in the pleural effusions. The CT scan shows small pleural effusions and some atelectasis at the left base. I think the effusion on the left side is sympathetic to the pancreatitis. I do not think he is fluid overloaded at present. Need to watch his renal function closely. If his creatinine has gone back up with today's labs and he should have some more IV fluid. The lab reports of course are not out yet this morning. 10/04/2016 he is taking a little bit of oral nourishment. We do need to watch his fluid status closely as his renal function can get worse if he does not get enough fluid in. He is running a low-grade fever today. I would be concerned about complications of his pancreatitis as the cause for that. His chest x-ray has shown improvement. 10/05/2016 he is drinking Ensure and liquids okay. Still not much appetite for regular food. His chest x-ray is showing some residual plantar like atelectasis in both mid lung baker. It actually looks a little better than the last film 3 days ago. He is using incentive spirometry regularly in the room. He had a low-grade fever 2 days ago and is on Levaquin. His lipase remains around 1000. Have no other suggestions as far as his pancreatitis. May want to ask GI to look at him again if his poor appetite persists an elevated lipase persist. 10/08/2016 patient's appetite has improved. Bilirubin is down to 1.1. Oxygen saturation reported is 93% on room air. We can probably discontinue his oxygen at this point. He does not need antibiotics any further for his lungs. From a pulmonary standpoint I will sign off. Please call if needed further. Exam (Progress Note) - Constitutional Vitals: Period Temp Pulse Resp BP Sys/Philippe Pulse Ox Last 24 Hr 97.5 F-99.6 F 68-98 16-20 129-166/67-94 91-97 Exam: Patient is responsive, sitting up in a chair. Vital signs are normal. Pupils react to light. Neck supple no bruits. Chest sounds clear. Heart normal rate rhythm no murmurs. abdomen somewhat protuberant non- tender bowel present. Extremities no clubbing cyanosis. Trace of edema. Calves nontender. Results - Labs CBC & BMP: 10/08/16 04:23 10/08/16 04:23 Lab Results: I have reviewed the past 24 hour labs Assessment and Plan (1) Acute respiratory failure Status: Resolved Assessment and plan: ABGs show a persistent respiratory acidosis despite mechanical ventilation. I have adjusted the ventilator settings. May need to diurese. Difficult to tell whether he has a factor of congestive heart failure involved. Will get echocardiogram and BNP 09/27/2016 ABGs improved. PO2 143 on 70% with 5 of PEEP. Patient appears alert and responsive. Will try on CPAP this morning and see if we can get him extubated. 09/28/2016 patient was extubated. Still requiring 5 L nasal biprong. We need to diurese him a little if his renal function will allow. 10/01/2016 patient has done well with extubation. Reducing oxygen. He is still wheezing. no previous history of lung disease. Treating for both bronchitis with bronchospasm and fluid overload. 10/02/2016 still requiring some nasal oxygen. Otherwise respiratory failure has resolved. He has atelectatic pneumonitis with bronchospasm. 10/03/2016 this is resolved. Oxygen saturation 94% on room air. 10/04/2016 resolved. No longer requiring nasal oxygen. 10/05/2016 respiratory failure has resolved. 10/08/2016 this has resolved. Patient should tolerate room air. Current Visit: Yes (2) Nontraumatic retroperitoneal hematoma Status: Acute Assessment and plan: He was found to have some blood in the retroperitoneal space the etiology of which is not clear but suggested to be from a kidney. 09/27/2016 defer to surgery. 09/28/2016 hematocrit stable at 33. 10/03/2016 this is apparently stable on CT scan. 10/04/2016 this of course could cause fever. Defer to GI and/or surgery for follow-up of the retroperitoneal hematoma. Current Visit: Yes (3) Acute pancreatitis Status: Acute Assessment and plan: Markedly elevated lipase. Elevated bilirubin. He has had an ERCP as this was suspected to be secondary to gallstone pancreatitis. 09/27/2016 does not appear to be having severe pain. Watch for pulmonary complications such as pulmonary edema from fluid replacement or ARDS. 09/28/2016 patient not having abdominal pain. Does have some back pain. He has bowel sounds. His lipase has been decreasing. 10/01/2016 this appears to be resolving. Bilirubin falling. Recheck amylase and lipase. 10/02/2016 lipase remains elevated. Symptoms are better. No abdominal pain. 10/03/2016 no abdominal pain. Poor appetite. Will take a while for this to continue resolving. 10/04/2016 although is not having pain I do think he still has active pancreatitis. 10/05/2016 taking in liquids a little better. Poor appetite persists. Defer to GI. 10/08/2016 this appears to be resolving. Current Visit: Yes (4) Jaundice Status: Resolved Assessment and plan: Bilirubin was 6 yesterday. 09/28/2016 labs are pending 10/01/2016 bilirubin down to 2.8. 10/05/2016 is not visibly jaundiced now. 10/08/2016 bilirubin down to 1.1 which is just barely abnormal. No visible jaundice. Current Visit: Yes (5) Acute kidney injury Status: Resolved Assessment and plan: His creatinine had come down to 1.6. We need to recheck that tomorrow. Keep up with his fluid closely. 10/05/2016 creatinine down to 1.4. Taking adequate amount of fluid p.o. 10/08/2016 renal function about back to baseline. Current Visit: Yes
[2016-10-08] MEDS: METOPROLOL TARTRATE 100 MG TABLET PO SCH (09:58)
[2016-10-08] MEDS: PANTOPRAZOLE 40 MG TABLET PO SCH (09:58)
[2016-10-08] MEDS: amLODIPine 10 MG TABLET PO SCH (09:58)
[2016-10-08] MEDS: ALLOPURINOL 100 MG TABLET PO SCH (09:59)
[2016-10-08] MEDS: LEVOTHYROXINE 50 MCG TABLET PO SCH (09:59)
--- NOTE | 2016-10-08 10:44 | Discharge Summary ---
Hospital Course - Hospital Course Hospital Course: The patient was admitted to the hospital with abdominal pain and jaundice. The patient had sepsis resulting in systemic immune response syndrome causing noncardiogenic pulmonary edema and requiring mechanical ventilation. The patient also had acute kidney injury with renal failure and peak creatinine of 2.6. Both pulmonary and renal function improved with treatment of sepsis. The patient had ERCP to remove debris from the common bile duct. Jaundice resolved over the next 2 weeks. The patient had severe hemorrhagic pancreatitis due to biliary obstruction at the time of admission. This acute pancreatitis is still improving. The patient is tolerating hydration and nutrition to a sufficient extent is now discharged home in improved condition. The patient will take an additional week of Cipro to reduce the risk of pancreatic abscess. The patient will follow up with Dr. Mandel in a week. On the date of discharge, chest is clear and abdomen soft. Heart has regular rate and rhythm. Discharge time required 42 minutes. - Time spent with patient Time with patient DS: Greater than 30 minutes Diagnosis - Discharge Diagnosis (1) Jaundice Status: Resolved (2) Nontraumatic retroperitoneal hematoma Status: Chronic (3) Acute pancreatitis Status: Acute Discharge Plan - Discharge Data Disposition: Disch To Home/Self Care Condition at Discharge: Stable Discharge Diet: advance to your usual diet Activity: increase activity as tolerated - Discharge Medications New Ciprofloxacin Tab [Cipro Tab] 500 mg PO BID #14 tablet Temazepam [Restoril] 15 mg PO BEDTIME PRN #30 capsule PRN Reason: Sleep Continue amLODIPine [Norvasc] 10 mg PO DAILY Cholecalciferol [Vitamin D3] 1,000 unit PO BEDTIME Colchicine [Colcrys] 0.6 mg PO Q6H PRN PRN Reason: Gout Diclofenac 1% Gel [Voltaren 1% Gel] 1 applic TOP QID PRN PRN Reason: KNEE Terazosin [Hytrin] 5 mg PO BEDTIME Pantoprazole Tab [Protonix Tab] 40 mg PO DAILY Levothyroxine Tab [Synthroid Tab] 50 mcg PO DAILY Pitavastatin [Livalo] 2 mg PO BEDTIME [place]-3 Fatty Acids [Fish Oil Concentrate] 1,000 mg PO BID Aspirin [Aspirin EC] 81 mg PO DAILY Allopurinol 200 mg PO DAILY Dorzolamide HCl/Timolol Maleat [Dorzolamide/Timolol Oph Soln] 1 drop BOTH EYES BEDTIME Hydrocodone/Acetaminophen [[place] 7.5-325 Tablet] 1 each PO Q6H PRN PRN Reason: Pain Metoprolol Tartrate Tab [Lopressor Tab] 100 mg PO BID Discontinued Cyclobenzaprine [Flexeril] 10 mg PO BEDTIME PRN PRN Reason: Pain - Follow Up or Referral Follow Up: Edvin Jeronimo MD [Physician] - 1 Week - Forms/Instructions Exam - Constitutional Vitals: Period Temp Pulse Resp BP Sys/Philippe Pulse Ox Last 24 Hr 97.5 F-99.6 F 66-98 16-20 129-166/67-94 91-99 Discharge Results Labs on day of discharge: Labs from last 24 hours 10/08/16 10/08/16 04:23 04:23 WBC 11.1 RBC 3.81 Hgb 10.5 L Hct 32.7 L MCV 85.8 L MCH 28 MCHC 32.1 RDW 15.9 Plt Count 322 D MPV 12.2 H Neut % (Auto) 73.8 Lymph % (Auto) 12.2 L [place] % (Auto) 9.7 Eos % (Auto) 2.0 Baso % (Auto) 0.5 Neut # (Auto) 8.2 H Lymph # (Auto) 1.4 [place] # (Auto) 1.1 H Eos # (Auto) 0.2 Baso # (Auto) 0.1 Immature Gran % 1.8 Nucleated RBC % 0.0 Immature Gran # 0.20 Nucleated RBCs # 0.00 Sodium 138 Potassium 4.7 Chloride 98 Carbon Dioxide 31 Anion Gap 13.7 BUN 21 H Creatinine 1.40 H GFR Calculation 60 BUN/Creatinine Ratio 15.00 Glucose 97 Calculated Osmolality 277.7 Calcium 8.1 L Total Bilirubin 1.10 H AST 30 ALT 18 Alkaline Phosphatase 109 Total Protein 6.3 L Albumin 2.4 L Globulin 3.9 H Albumin/Globulin Ratio 0.6 L DS: Provider Date of admission: 09/25/16 12:04 Primary care physician: . No PCP Attending physician on admission: Roberto Childs MD Consults: 09/25/16 13:09 Consult to Physician [CONS] Routine Comment: Consulting Provider: Nicholas James Consulting Provider Notified: Yes Consult to Specialist Group: Surgery Person Notified: LORI Date Notified: 09/25/16 Time Notified: 14:50 Consult Notification Comment: ALREADY SEEN PT 09/25/16 13:35 Consult to Pharmacy [CONS] Routine Reason for Pharmacy Consult: Adjust Meds Renal Funct 09/25/16 16:37 Consult to Physician [CONS] Routine Comment: pancreatitis Consulting Provider: Abdoulaye Borjas Consult to Specialist Group: Gastroenterology When should Consulting Provider be notified: Now Person Notified: Mirza Date Notified: 09/25/16 Time Notified: 16:44 Consult Notification Comment: Notified over phone. 09/26/16 16:00 Consult to Physician [CONS] Routine Comment: vent relationship management lead Provider: Augustus Marino Consult to Specialist Group: Pulmonology When should Consulting Provider be notified: Now Person Notified: dr marino Date Notified: 09/26/16 Time Notified: 16:28 Consult Notification Comment: notified of consult, labs & vent settings reviewed, new orders rec'd 10/01/16 15:27 Consult to Physical Therapy [CONS] Routine Reason for Physical Therapy: Evaluate and Treat 10/03/16 11:34 Consult to Case Mgmt/Social Srvs [CONS] Routine Reason for Case Mgmt/Social Srvs: Swingbed/SNF/Jail [facility] Consult Comment: Set up w/[facility] f/Rehab Discharging clinician: Bethel Coates MD
[2016-10-08 11:20] VITALS: BP 143/64
[2016-10-08] MEDS: LEVOFLOXACIN INJ 750 MG in PREMIX 1 EACH IV SCH (11:30)
== END 2016-10-08 13:10 | disposition home health service (06) | DRG 871 ==
LOC: N.ED 09:08 → N.EDINP 12:04 → SUATTDRO 12:04 → N.ICU 13:30 → N.3E 09-30 14:09
PROVIDERS: ADMIT Internal Medicine Cardiovascular Disease; ATTEND Internal Medicine
PROC: ERCPWSP (ICD-10-PCS; 2016-09-26 12:05)

== ENCOUNTER 2016-10-10 22:38 | Observation (INO) ==
[2016-10-11] MEDS ORDERED: ONDANSETRON 4 MG/2 ML VIAL IV STA
--- NOTE | 2016-10-11 00:03 | Emergency Department Note ---
ITanya Emily, am scribing for, and in the presence of, Hiro Pablo MD 00: 00. Samy Kee Charles R, MD, personally performed the services described in this documentation, ascribed by Cherelle Martínez in my presence, and it is both accurate and complete . Arrival - Arrival Chief Complaint: Neuro Stated Complaint: loss of vision rt eye ED Nursing Triage Note: got up to go to bathroom and states the room went dark and now cant see out of right eye. was just d/c'd saturday with pancreatitis and retroperitaneal bleed. Mode of Arrival: Wheelchair Limitations: No Limitations Source: Patient - History of Present Illness HPI Narrative: Pt is a 76 y/o male who came to ED with c/o loss of vision in right eye when going to the bathroom this evening. Pt notes all sight in right eye has disappeared, but now blurry but can see lights, counts fingers, and peripheral vision intact. Pt denies numbness to face or arms or having a stroke prior. Pt was recently d/c on Saturday with pancreatitis and retroperitaneal. PMHx of cataracts, cholecystectomy in 2016. Onset (ago): hour(s) Consistency: intermittent Severity: mild Severity scale (1-10): 3 Quality: other (loss) Allergies/Adverse Reactions: Allergies Allergy/AdvReac Type Severity Reaction Status Date / Time Penicillins Allergy RASH Verified 09/25/16 09:24 Home Medications: Home Medications Medication Instructions Recorded Confirmed Type Allopurinol 200 mg PO DAILY 09/25/16 09/25/16 History Aspirin [Aspirin EC] 81 mg PO DAILY 09/25/16 09/25/16 History Cholecalciferol [Vitamin D3] 1,000 unit PO BEDTIME 09/25/16 09/25/16 History Colchicine [Colcrys] 0.6 mg PO Q6H PRN 09/25/16 09/25/16 History Diclofenac 1% Gel [Voltaren 1% Gel] 1 applic TOP QID PRN 09/25/16 09/25/16 History Dorzolamide HCl/Timolol Maleat 1 drop BOTH EYES BEDTIME 09/25/16 09/25/16 History [Dorzolamide/Timolol Oph Soln] Hydrocodone/Acetaminophen [[place] 1 each PO Q6H PRN 09/25/16 09/25/16 History 7.5-325 Tablet] Levothyroxine Tab [Synthroid Tab] 50 mcg PO DAILY 09/25/16 09/25/16 History Metoprolol Tartrate Tab [Lopressor 100 mg PO BID 09/25/16 09/25/16 History Tab] [place]-3 Fatty Acids [Fish Oil 1,000 mg PO BID 09/25/16 09/25/16 History Concentrate] Pantoprazole Tab [Protonix Tab] 40 mg PO DAILY 09/25/16 09/25/16 History Pitavastatin [Livalo] 2 mg PO BEDTIME 09/25/16 09/25/16 History Terazosin [Hytrin] 5 mg PO BEDTIME 09/25/16 09/25/16 History amLODIPine [Norvasc] 10 mg PO DAILY 09/25/16 09/25/16 History Ciprofloxacin Tab [Cipro Tab] 500 mg PO BID #14 tablet 10/08/16 Rx Temazepam [Restoril] 15 mg PO BEDTIME PRN #30 capsule 10/08/16 Rx Review of System - Review of System 12 point system: reviewed and no additional remarkable complaints except as stated - Review of System Constitutional: Absent: fever Eyes: Present: vision change (loss; now blurry with seeing capabilities) Medical,Surgical,& Family Hx - Medical History Cardio: History of: Hypertension (10-15 years duration) Neurology: No history of: Seizures HEENT: History of: Glaucoma Endocrine: History of: Dyslipidemia, Thyroid Disorder (Chronic thyroid replacement) Rheumatology: History of;: Gout (He is on allopurinol with as needed colchicine) Genitourinary: History of: Problems (Apparently there is a previously identified perinephric lesion) Gastrointestinal: History of: GI Problems (He denies symptoms but is on Protonix chronically) Musculoskeletal: History of: Degenerative Disk Disease Hematology: History of: Blood Disorders (DVT (5+ years ago)) - Surgical History Cardiac Surgeries: Patient Denies: Cardiac Catheterization HEENT Surgeries: Surgical HX of: Eye Surgery (Cataracts are) Abdominal Surgeries: Surgical HX of: Cholecystectomy (June 2016) Reproductive Surgeries: Patient denies;: Genitourinary Surgery Orthopedic Surgeries: Surgical HX of;: Spinal Surgery (Lumbar) - Family History Family History: Reports;: Family Cancer (sister(colon), mother(liver)), Family Hypertension (mother, father) - Social History Smoking Status: Never smoker Frequency of Alcohol Use: None Type of Drug Use: None Marital Status: Lives With:: Spouse Functional capacity: independent ambulation Exam Physical Examination: Detailed eye exam done using a funduscopic scope shows no edema no AV nicking in the retinal hemorrhage. Hand swinging flashlight test negative patient's H test was normal, physical exam was normal, basically the eye exam was normal red reflex present Vital Signs: Vital Signs Temperature 98.1 F 10/10/16 22:46 Pulse Rate 63 10/10/16 22:46 Respiratory Rate 20 10/10/16 22:54 Blood Pressure 124/67 10/10/16 22:46 O2 Sat by Pulse Oximetry 94 L 10/10/16 22:46 - General General appearance: alert, in no apparent distress - Head Head exam: Present: atraumatic, normocephalic - Eye Eye exam: Present: normal appearance, PERRL, EOMI, other (can follow lights, count objects, and perpheral vision intact; no edema). Absent: nystagmus - ENT ENT exam: Present: mucous membranes moist. Absent: mucous membranes dry - Neck Neck exam: Present: full ROM. Absent: tenderness - Chest Chest inspection: Present: symmetric chest wall rise. Absent: tenderness - Respiratory Respiratory exam: Present: normal lung sounds bilaterally. Absent: respiratory distress - Cardiovascular Cardiovascular exam: Present: regular rate, normal rhythm, normal heart sounds - Abdominal Exam Abdominal exam: Present: soft, distention, hyperactive bowel sounds. Absent: tenderness, guarding, rebound - Extremities Exam Extremities exam: Present: full ROM. Absent: tenderness, pedal edema - Neurological Exam Neurological exam: Present: alert, oriented X3, CN II-XII intact. Absent: motor sensory deficit - Psychiatric Psychiatric exam: Present: normal affect, normal mood - Skin Skin exam: Present: warm, dry Course - Consultations Consultation #1: Spoke to Dr. Griggs dye range operator valuation consultant he recommended Septocaine give him aspirin for his recent retroperitoneal bleed recommend hospitalization for stroke workup carotid Dopplers and he will see him in the morning consult Time: 00:02 Consultation #2: Hospitalist will admit patient, after careful discussion with him place him on a baby aspirin benefits outweigh the risks Time: 00:37 Results - Labs CBC & BMP: 10/11/16 Unknown 10/11/16 Unknown Lab Results: I have reviewed the patients labs Labs: Laboratory Tests 10/11/16 10/11/16 10/11/16 Unknown Unknown Unknown WBC 13.8 H Hgb 10.6 L Hct 32.5 L MCV 83.5 L MPV 12.2 H Neut % (Auto) 77.9 H Lymph % (Auto) 12.1 L Neut # (Auto) 10.8 H [place] # (Auto) 1.0 H Creatinine 1.40 H Calcium 7.8 L C-Reactive Protein 11.80 H Total Protein 6.2 L Albumin 2.5 L Globulin 3.7 H Albumin/Globulin Ratio 0.6 L Serum Alcohol < 15 L - Diagnostic Findings Procedure: CT: image reviewed by me, report reviewed by me (CT head negative) Disposition Clinical Impression: Transient cerebral ischemia, Amaurosis fugax of left eye, Sudden loss of vision Case discussed with: patient, patient's family Disposition: Still a Patient Condition: Stable Time of Disposition: 00:37 NIH Stroke Score - Stroke Score Initial Assessment Level of Consciousness: Alert Level of Consciousness Questions: Answers Both Correctly Level of Consciousness Commands: Obeys Both Correctly Best Gaze: Normal Visual [place]: Partial Hemianopia Facial Palsy: Normal Motor - Right Arm: No Drift Motor - Left Arm: No Drift Motor - Right Leg: No Drift Motor - Left Leg: No Drift Limb Ataxia: Absent Sensory ([place]): Normal Best Language: Normal Dysarthria: Normal Extinction / Inattention (Neglect): No Neglect NIH Stroke Score: 1
[2016-10-11 00:08] LABS: Basophils # 0.1 10*3/uL (0.0-0.2); Basophils % 0.5 % (0.0-0.8); Eosinophils # 0.2 10*3/uL (0.0-0.87); Eosinophils % 1.2 % (0.00-10.9); Hematocrit 32.5 VOL% (42.0-52.0); Hemoglobin 10.6 GM/DL (14.0-18.0); Immature Granulocytes % 1.3 %; Immature Granulocytes Absolute 0.18 #; Lymphocytes # 1.7 10*3/uL (1.4-4.0); Lymphocytes % 12.1 % (21.2-54.2); Mean Corpuscular HGB Conc 32.6 GM/DL (32-36); Mean Corpuscular Hemoglobin 27 PG (27-34); Mean Corpuscular Volume 83.5 FL (87-102); Mean Platelet Volume 12.2 FL (9.6-12.0); Neutrophils # 10.8 10*3/uL (1.4-7.4); Neutrophils % 77.9 % (38.7-73.9); Platelet Count 388 T/CUMM (130-400); Red Blood Count 3.89 MC/CUMM (3.8-5.5); Red Cell Distribution Width 15.7 % (9.3-17.3); White Blood Count 13.8 T/CUMM (4-12)
[2016-10-11 00:14] LABS: INR 1.1; PT Patient Result 11.4 SECS; Partial Thromboplastin Time 30.4 SECS (0-40)
[2016-10-11 00:20] LABS: Alanine Aminotransferase 17 U/L (16-61); Albumin 2.5 G/DL (3.4-5.0); Alkaline Phosphatase 105 U/L (45-117); Aspartate Amino Transferase 28 U/L (0-37); Blood Urea Nitrogen 17 MG/DL (7-18); Calcium 7.8 MG/DL (8.5-10.1); Glucose 101 MG/DL (74-106); Osmolality,Calculated 278.5 MOS/KG (273-304); Potassium 4.6 MMOL/L (3.5-5.1); Sodium 139 MMOL/L (136-145); Total Protein 6.2 G/DL (6.4-8.3)
[2016-10-11] MEDS ORDERED: ONDANSETRON 4 MG/2 ML VIAL ONE (00:24)
[2016-10-11] MEDS ORDERED: ASPIRIN EC 81 MG TABLET PO ONE ×2 (00:55→03:30)
--- NOTE | 2016-10-11 02:30 | Hospitalist History & Physical ---
Assessment and Plan (1) Transient cerebral ischemia Status: Acute Assessment and plan: Admitted for observation. Carotid ultrasound in a.m. Echocardiogram done 2 weeks ago without acute abnormality. Continue aspirin daily. Consult ophthalmology Current Visit: Yes Qualifiers: Transient cerebral ischemia type: amaurosis fugax Qualified Code(s): G45.3 - Amaurosis fugax (2) Sudden loss of vision Status: Resolved Current Visit: Yes Qualifiers: Laterality: right Qualified Code(s): H53.131 - Sudden visual loss, right eye History of Present Illness Chief complaint: Sudden onset right eye blindness History of present illness: Mr. Aguilera is a 76 year old male presented to the ED with c/o loss of vision in right eye when going to the bathroom this evening. He is accompanied by his and daughter. Pt notes all sight in right eye has disappeared, but now blurry but can see lights, counts fingers, and peripheral vision intact. Pt denies numbness to face or arms or having a stroke prior. Pt was recently d/c on Saturday with severe hemorrhagic pancreatitis and retroperitaneal bleeding with acute renal failure. He has recovered well and has no other complaints. His vision spontaneously returned in approx 20 minutes. He reports this has happened a couple of times today. No other neuro deficits or complaints. He is AAOx3 and in no acute distress. His daughter reports he was supposed to have a carotid ultrasound as outpatient but never followed up. Home Medications Medication Instructions Recorded Confirmed Type RX: Allopurinol 200 mg PO DAILY 09/25/16 09/25/16 History RX: Aspirin [Aspirin EC] 81 mg PO DAILY 09/25/16 09/25/16 History RX: Cholecalciferol [Vitamin D3] 1,000 unit PO BEDTIME 09/25/16 09/25/16 History RX: Colchicine [Colcrys] 0.6 mg PO Q6H PRN 09/25/16 09/25/16 History RX: Diclofenac 1% Gel [Voltaren 1% 1 applic TOP QID PRN 09/25/16 09/25/16 History Gel] RX: Dorzolamide HCl/Timolol Maleat 1 drop BOTH EYES BEDTIME 09/25/16 09/25/16 History [Dorzolamide/Timolol Oph Soln] RX: Hydrocodone/Acetaminophen 1 each PO Q6H PRN 09/25/16 09/25/16 History [Mcbain 7.5-325 Tablet] RX: Levothyroxine Tab [Synthroid 50 mcg PO DAILY 09/25/16 09/25/16 History Tab] RX: Metoprolol Tartrate Tab 100 mg PO BID 09/25/16 09/25/16 History [Lopressor Tab] RX: [place]-3 Fatty Acids [Fish Oil 1,000 mg PO BID 09/25/16 09/25/16 History Concentrate] RX: Pantoprazole Tab [Protonix Tab] 40 mg PO DAILY 09/25/16 09/25/16 History RX: Pitavastatin [Livalo] 2 mg PO BEDTIME 09/25/16 09/25/16 History RX: Terazosin [Hytrin] 5 mg PO BEDTIME 09/25/16 09/25/16 History RX: amLODIPine [Norvasc] 10 mg PO DAILY 09/25/16 09/25/16 History Ciprofloxacin Tab [Cipro Tab] 500 mg PO BID #14 tablet 10/08/16 Rx RX: Temazepam [Restoril] 15 mg PO BEDTIME PRN #30 capsule 10/08/16 Rx Allergies Allergy/AdvReac Type Severity Reaction Status Date / Time Penicillins Allergy RASH Verified 09/25/16 09:24 Medical,Surgical,& Family Hx - Medical History Cardio: History of: Hypertension (10-15 years duration) Neurology: No history of: Seizures HEENT: History of: Glaucoma Endocrine: History of: Dyslipidemia, Thyroid Disorder (Chronic thyroid replacement) Rheumatology: History of;: Gout (He is on allopurinol with as needed colchicine) Genitourinary: History of: Problems (Apparently there is a previously identified perinephric lesion) Gastrointestinal: History of: GI Problems (He denies symptoms but is on Protonix chronically) Musculoskeletal: History of: Degenerative Disk Disease Hematology: History of: Blood Disorders (DVT (5+ years ago)) - Surgical History Cardiac Surgeries: Patient Denies: Cardiac Catheterization HEENT Surgeries: Surgical HX of: Eye Surgery (Cataracts are) Abdominal Surgeries: Surgical HX of: Cholecystectomy (June 2016) Reproductive Surgeries: Patient denies;: Genitourinary Surgery Orthopedic Surgeries: Surgical HX of;: Spinal Surgery (Lumbar) - Family History Family History: Reports;: Family Cancer (sister(colon), mother(liver)), Family Hypertension (mother, father) - Social History Smoking Status: Never smoker Frequency of Alcohol Use: None Type of Drug Use: None Marital Status: Lives With:: Spouse Functional capacity: independent ambulation 12 point system: reviewed and no additional remarkable complaints except as stated - EENT Eyes: Present: blurry vision, loss of vision Exam - Constitutional Vitals: Period Temp Pulse Resp BP Sys/Philippe Pulse Ox Last 24 Hr 65 16 159/66 97 Exam: Constitutional System: No distress. No tremulousness. Head: Normocephalic, atraumatic. Ears, Nose and Throat System: No pain or tenderness. No epistaxis or discharge Eyes System: Pupils equal, round, and reactive. Extraocular muscles intact. Vision has improved in the right eye. He feels like it is back to baseline. Neck: Supple, without adenopathy, No jugular venous distention. No thyromegaly, neck mass, or prior surgery apparent. Respiratory System: Chest clear to auscultation. Cardiovascular System: Heart with regular rate and rhythm. No murmur. GI System: Abdomen soft, nontender. Normo active bowel sounds present. Musculoskeletal System: limbs with no pedal edema. Full distal pulses. Neurological System: No discernable sensory deficit. No aphasia Psychiatric System: Conversation is rational Results - Labs CBC & BMP: 10/11/16 Unknown 10/11/16 Unknown Lab Results: I have reviewed the past 24 hour labs Quality Measures - VTE Contraindication to Pharmacological VTE Prophylaxis: Clinical assessment deems Pt at low risk, no prophalaxis needed - Stroke Onset of Symptoms Date: 10/10/16
[2016-10-11] MEDS ORDERED: DICLOFENAC 1% GEL 100 GM TUBE TOP PRN (03:07)
[2016-10-11] MEDS ORDERED: TEMAZEPAM 7.5 MG CAPSULE PO PRN (03:07)
[2016-10-11] MEDS ORDERED: COLCHICINE 0.6 MG TABLET PO PRN (03:07)
--- NOTE | 2016-10-11 06:19 | CT Report ---
Exam: CT scan of brain without contrast Date: 10/10/2016 Indication: Right-sided weakness blurred vision CVA symptoms Comparison: 04/18/2009. Patient's classification: Emergency department Technical: Images were obtained from the skull base to the vertex without the use of intravenous contrast. Dose reduction was performed with decreasing kv and mA and automated exposure Total DLP: 1053.4 mGy*cm Findings: The study was initially reviewed by [facility]. The ventricles are mildly enlarged. Small vessel changes are present in the periventricular subcortical white matter regions with old lacunar infarction involving the left centrum semiovale. Atrophy of the cerebral hemispheres are present. The brainstem is intact. The cerebellum reveals component of atrophy. Paranasal sinuses globes and sella mastoids reveal no acute findings. Vascular plaque is present. Impression: 1. No acute hemorrhage infarction or mass effect 2. 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 Diffuse small vessel ischemic change. PROCEDURE INTERPRETED AT [facility] DEPARTMENT OF RADIOLOGY Final Report Signed by: Dr. Abdoulaye Villegas
--- NOTE | 2016-10-11 06:32 | Ultrasound Report ---
Exam: US carotid duplex BI Date: 10/11/2016 12:56 AM Indication: TIA symptoms right-sided weakness Findings: Grayscale color flow analysis and spectral analysis imaging was performed with image stored and captured. Right Flow velocities centimeters per second Common carotid artery: 89 Proximal ICA: 84 Distal ICA: 63 External carotid artery: 108 Vertebral artery: 87 ICA/CCA ratio: 0.9 Measurements in millimeters Distal ICA: 5.7 mm Left: Flow velocities centimeters per second Common carotid artery: 60 Proximal ICA: 346 Distal ICA: 262 External carotid artery: 135 Vertebral artery: 73 ICA/CCA ratio: 5.8 Measurements in millimeters Distal ICA: 6 Grayscale color flow analysis reveals heavy plaque in the takeoff the left internal carotid artery with spectral broadening present. Moderate plaque within the right carotid bulb and internal carotid artery also present. Triphasic waveforms are present. Impression: 1. 70% or greater stenosis suspected in the left ICA with elevated velocities 2. 16-49 percent stenosis of the right ICA CT angiography or formal jugular vein recommended for further evaluation. Today studies were performed utilizing indirect NASCET criteria The ultrasound images were stored and captured PROCEDURE INTERPRETED AT [facility] DEPARTMENT OF RADIOLOGY Final Report Signed by: Dr. Abdoulaye Villegas
--- NOTE | 2016-10-11 06:46 | XRay Report ---
Exam: XR chest 1V portable Date: 10/11/2016 12:01 AM Indication: Cardiomegaly Comparison: 10/05/2016 Technical: AP portable Findings: Cardiomegaly present with platelike atelectatic change in the midlung zones and fluid along the minor fissure. Mild shunt vascularity interstitial edema. Lateral marginal osteophytes are present. No pneumothorax. Impression: 1. Cardiomegaly with the mild cardiac decompensation interstitial edema. Tiny effusion suspected in both bases 2. Atelectatic change. PROCEDURE INTERPRETED AT [facility] DEPARTMENT OF RADIOLOGY Final Report Signed by: Dr. Abdoulaye Villegas
--- NOTE | 2016-10-11 08:12 | EKG Report ---
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
[2016-10-11] MEDS: LEVOTHYROXINE 50 MCG TABLET PO SCH (09:22)
[2016-10-11] MEDS: METOPROLOL TARTRATE 100 MG TABLET PO SCH ×2 (09:22→21:27)
[2016-10-11] MEDS: PANTOPRAZOLE 40 MG TABLET PO SCH (09:22)
[2016-10-11] MEDS: OMEGA 3 ACID ETHYL ESTERS 1 GM CAPSULE PO SCH ×2 (09:22→21:27)
[2016-10-11] MEDS: ALLOPURINOL 100 MG TABLET PO SCH (09:22)
[2016-10-11] MEDS: amLODIPine 10 MG TABLET PO SCH (09:22)
[2016-10-11] MEDS: ASPIRIN EC 81 MG TABLET PO SCH (09:22)
--- NOTE | 2016-10-11 13:19 | Hospitalist Progress Note ---
Assessment and Plan - Time spent with patient Time spent with patient: Greater than 30 minutes (1) Amaurosis fugax of left eye Status: Acute Assessment and plan: Transient, vision has returned to normal. Will obtain an MRI brain and MRA head and neck. Neurology has been consulted. Echocardiogram pending. Current Visit: Yes (2) Carotid stenosis Status: Acute Assessment and plan: Dr Castelan has been notified. Current Visit: Yes (3) BPH (benign prostatic hyperplasia) Status: Acute Assessment and plan: Continue medications. Current Visit: Yes (4) Glaucoma Status: Acute Assessment and plan: Continue medications. Current Visit: Yes (5) Gout Status: Acute Assessment and plan: Continue medications. Current Visit: Yes (6) Hypertension Status: Chronic Assessment and plan: Continue medications. Current Visit: No Qualifiers: Hypertension type: essential hypertension Qualified Code(s): I10 - Essential (primary) hypertension Hospitalist: Subjective Interval history: No complaints from the patient. He is back to baseline. He has returned from Opthalmologists office. Exam - Constitutional Vitals: Period Temp Pulse Resp BP Sys/Philippe Pulse Ox Last 24 Hr 98.1 F-98.9 F 65-69 16-20 139-159/66-75 94-98 General appearance: normal weight, no acute distress - Head Head exam: Present: normocephalic, atraumatic - Eye Eye exam: Present: EOMI Pupils: Present: RAÚL - ENT ENT exam: Present: normal exam - Neck Neck exam: Present: normal inspection - Respiratory Respiratory exam: Present: clear to auscultation bilaterally. Absent: rhonchi, wheezes - Cardiovascular Cardiovascular exam: Present: regular rate and rhythm. Absent: gallop, rubs, systolic murmur - GI/Abdominal GI/Abdominal exam: Present: normal bowel sounds, soft. Absent: distended, firm , guarding, tenderness, rebound - Extremities Exam Extremities exam: Present: normal inspection. Absent: calf tenderness, edema - Neurological Exam Neurological exam: Present: alert, oriented X3, CN II-XII intact Results - Labs CBC & BMP: 10/11/16 Unknown 10/11/16 Unknown Lab Results: I have reviewed the past 24 hour labs Quality Measures - VTE Contraindication to Pharmacological VTE Prophylaxis: Clinical assessment deems Pt at low risk, no prophalaxis needed - Stroke Onset of Symptoms Date: 10/10/16
--- NOTE | 2016-10-11 14:59 | Magnetic Resonance Report ---
Exam: MR head/brain w and wo con Date: 10/11/2016 12:21 PM Comparison: CT brain 10/10/2016 Indication: Transient right visual loss Technique:[Multiple acquisitions were obtained including sagittal T1, coronal T1 scans following injection of 20 cc of Dotarem, and axial ADC, diffusion, FLAIR, T2, GRE, and T1 scans before and after injection of contrast. Scans were obtained on an 1.5 Bere magnet.] Findings: The ventricles are minimally dilated with no midline displacement. The pituitary has a normal appearance and the cerebellar tonsils are normal in their location. No acute infarction is identified in the diffusion scans. Chronic lacunar infarct in the left cortez radiata location. Cerebral atrophy which is more pronounced in the frontal lobes and right parietal lobe. Additional FLAIR/T2 hyperintensities. No acute findings in the paranasal sinuses, orbits or orbits. Fluid in the mastoid air cells. Impression: Motion artifact. No acute infarction identified. Chronic left cortez radiata lacunar infarct. Significant cerebral atrophy with probable compensatory dilatation of the ventricles. Minimal microvascular disease. Nonspecific fluid in the mastoid air cells. PROCEDURE INTERPRETED AT [facility] DEPARTMENT OF RADIOLOGY Final Report Signed by: Dr. Kristi Casas
--- NOTE | 2016-10-11 15:09 | Magnetic Resonance Report ---
Exam: MR angio head wo con (COW) Date: 10/11/2016 12:22 PM Comparison: MR angiogram neck, 10/11/2016 Indication: Transient right visual loss, TIA, history of CVA Technique:[Utilizing 3-D zijk-dx-yyunks imaging MRA head obtained without contrast. Volume rendered 3-D scans were obtained. Degree of stenosis is based on NASCET criteria. Scans were obtained on a 1.5 Bere magnet.] Findings: Tortuosity of the arteries. No definite aneurysm is identified. Appears that there is probably hemodynamically significant stenosis at the level of the carotid siphon bilaterally. Finding appears more prominent on the left. Additional nonhemodynamically significant stenoses demonstrated in the branches of the middle cerebral arteries. Impression: Possible hemodynamically significant stenosis in the carotid siphon location bilaterally. Finding appears more pronounced on the left. At least some of these findings could be related to the tortuosity of the arteries in this location. CTA may be helpful for further evaluation. PROCEDURE INTERPRETED AT [facility] DEPARTMENT OF RADIOLOGY Final Report Signed by: Dr. Kristi Casas
--- NOTE | 2016-10-11 15:15 | Magnetic Resonance Report ---
Exam: MR angio neck wo/w con Date: 10/11/2016 12:22 PM Comparison: Carotid ultrasound 10/11/2016 Indication: Left carotid stenosis, TIA, transient right visual loss, history of CVA Technique:[Utilizing 2-D yxhl-hn-txakhi imaging MRA neck obtained before and after injection of 20 cc of Dotarem. 3-D volume rendered scans were obtained. Degree of stenosis based on NASCET criteria. Scans were obtained on a 1.5 Bere magnet.] Findings: Scans are degraded by motion artifact. Tortuosity of the arteries. In the upper carotid bulb location the right ICA measures 6.4 mm. In the upper carotid bulb location the left ICA measures 5.3 mm. Less than 50% stenosis in the proximal right ICA. Greater than 70% stenosis at the origin and upper carotid bulb location of the left ICA. The vertebral arteries are comparable in size and patent to the level of the basilar artery. Possible additional stenosis of the origin of the left common carotid artery. Impression: Greater than 70% stenosis in left ICA. Possible additional stenosis at the origin of the left common carotid artery. Less than 50% stenosis in right ICA. CTA may be helpful for further evaluation. PROCEDURE INTERPRETED AT [facility] DEPARTMENT OF RADIOLOGY Final Report Signed by: Dr. Kristi Casas
--- NOTE | 2016-10-11 15:45 | Ophthalmology Progress Note ---
Opthalmology - PN: Subj Interval history: Patient seen this am in office. Addn studies today show no acute cva but does have Left>right carotid disease. Has elevated wesr and crp in range for concern for temporal arteritis though no hx of headaches ,jaw pain etc. These might be related to prior inflammatory/infectious process from recent prior admission but still bothersome in the face of acute vision loss. Patient didnot have apparent ischemic changes in optic nerve nor apparent arteriole occlusion or emboli. He may need TA biopsy and strong consideration of course of high dose steroids if other causes of this abnormal lab not apparent. Ophthalmology Exam - Constitutional Vitals: Vital Signs Temp Pulse Resp BP Pulse Ox 97.8 F 69 20 145/75 92 L 10/11/16 14:00 10/11/16 14:00 10/11/16 14:00 10/11/16 14:00 10/11/16 14:00 Intake and Output 10/10/16 10/11/16 10/11/16 23:59 07:59 15:59 Intake Total 250 / 250 480 / 480 Output Total 600 / 600 Balance 250 / 250 -120 / -120 Intake: Oral 250 / 250 480 / 480 Output: Urine 600 / 600 Other: Weight 97.976 kg Patient Weight 10/11/16 23:59 Weight 97.976 kg Results - Labs CBC & BMP: 10/11/16 Unknown 10/11/16 Unknown Quality Measures - VTE Contraindication to Pharmacological VTE Prophylaxis: Clinical assessment deems Pt at low risk, no prophalaxis needed - Stroke Onset of Symptoms Date: 10/10/16
--- NOTE | 2016-10-11 17:32 | CT Report ---
CT angio neck Indication: Carotid artery disease. Comparison: None. Technique: Following administration of intravenous contrast, routine CT angiography of the neck was performed. Multiple contiguous axial images were obtained from the skull base through the upper chest. Thin slab MIP reconstructions in the sagittal and coronal planes as well as 3-D volumetric reconstructions of the neck vasculature were submitted for interpretation. The degree of stenosis will be determined using direct NASCET criteria. The CT examination was performed using one or more of the following dose reduction techniques: Automatic exposure control, adjustment of the mA and kV according to patient size, use of acute or iterative reconstruction techniques. Findings: Normal 3 vessel arch anatomy is demonstrated. There is moderate mural thrombus and intimal calcification of the aortic arch. The left subclavian artery is widely patent as is the right brachiocephalic artery origin. The left common carotid artery demonstrates xtri-ez-fsffselb stenosis at the ostia. This may be exaggerated by motion. Additionally, the right common carotid artery demonstrates mild stenosis. Left vertebral artery origin has calcification at the origin and is not well-visualized secondary to motion. Xpul-cd-mcjjjoeq tortuosity of the proximal vessel is demonstrated. The right vertebral artery appears to have moderate stenosis at the vessel origin. This vessel origin also was not well-visualized secondary to motion. The cervical segments of each vertebral artery. Codominant with some areas of suggestive mural thrombus in the mid left vertebral artery resulting in mild stenosis. The common carotid arteries bilaterally demonstrate uniform caliber. The right common carotid artery bifurcation demonstrates circumferential low attenuation mural thrombus within the proximal right cervical segment ICA which minimally narrows the vessel lumen to 4.9 mm. Distal to this minimal stenosis, there is moderate to severe tortuosity of the right cervical segment ICA with vascular kinking present. The distal vessel lumen measures 4.7 mm. The left common carotid artery bulb demonstrates a moderate degree of calcified plaque at the origin of the left cervical segment ICA with additional mural thrombus resulting in severe stenosis of the proximal cervical segment ICA. A tandem lesion is demonstrated with the more proximal stenosis narrowing the lumen to approximately 1.5 mm and the slightly more distal lumen narrowing to 1.0 mm. The length of this segment of involvement measures approximately 14 mm. Distal to the second stenosis, the lumen of the right cervical segment ICA is mildly tortuous and measures 4.5 mm. Nonvascular structures demonstrate no evidence of acute pathology within the orbits, paranasal sinuses, neck, or visualized portion of the upper chest. Blurring of lung parenchyma secondary to motion is present. Impression: 1. No significant stenosis of the right cervical segment ICA is present. 2. Vertebral artery origins have suggested stenosis the severity of which is difficult to visualize given the degree of motion. 3. Mild stenosis of the left and right common carotid artery origins are suggested. 4. Using direct NASCET criteria, more severe stenotic lesion within the tendon stenosis involving the proximal left cervical segment ICA is calculated to lie in the range of 75-77%. 10/11/2016 5:10 PM PROCEDURE INTERPRETED AT [facility] DEPARTMENT OF RADIOLOGY Final Report Signed by: Dr. Wally Kenney
[2016-10-11] MEDS ORDERED: TERAZOSIN 5 MG CAPSULE PO SCH (21:00)
[2016-10-11] MEDS ORDERED: DORZOLAMIDE/TIMOLOL OPH SOLN 10 ML BOTTLE BOTH EYES SCH (21:00)
[2016-10-11] MEDS ORDERED: CHOLECALCIFEROL 1,000 UNIT TABLET PO SCH (21:00)
[2016-10-11] MEDS ORDERED: PITAVASTATIN 2 MG TABLET PO SCH (21:00)
--- NOTE | 2016-10-11 23:30 | Consultation ---
HISTORY: A 76-year-old right handed white gentleman with past medical history significant for hyper tension, dyslipidemia, thyroid disorder, gout, and problems, admitted to the hospital with acute onset of right eye vision issues. The patient is complaining of loss of vision of the right eye whe n going to the bathroom yesterday evening. He is accompanied by his and daughter. The patient noticed all sight in the right eye has disappeared, but not blurry, but can see lights count finger s and peripheral vision is intact. The patient denies any numbness, tingling, weakness, speech diff iculties, or swallowing problems. He is a little bit better though. The patient was recently disch arged on Saturday with severe hemorrhagic pancreatitis and retroperitoneal bleeding with acute renal f ailure. He is able to get up and walk. MRI of the brain reveals no acute abnormality. MRA reveals possible left ICA stenosis. He has been on aspirin a day. PAST MEDICAL HISTORY: As above. PAST SURGICAL HISTORY: Cardiac catheterization, history of eye surgery, cataracts, history of say cystectomy, genitourinary surgery, and history of spinal surgery. FAMILY HISTORY: History of cancer in sister and hypertension. SOCIAL HISTORY: The patient is a nonsmoker and nonalcoholic. REVIEW OF SYSTEMS: Twelve-point system reviewed and no additional remarkable complaints except as stated. PHYSICAL EXAMINATION VITAL SIGNS: His blood pressure is 145/75. Pulse is 59. He is afebrile. CHEST: Clear. HEART: Regular rate and rhythm. ABDOMEN: Soft and nontender. NEUROLOGICAL: He is alert, awake and oriented X3. Fluent speech with comprehension. Cranial nerves , pupils are dilated because of recent eye exam this morning. Extraocular movements are intact and no facial asymmetry seen. Visual baker are equal. Motor exam: Strength is 5/5 in all four extrem ities. Sensory exam is grossly intact for all modalities. Reflexes are 1+ and symmetrical. Cerebe llar function, normal finger to nose. Gait is not tested. IMPRESSION: ACUTE ONSET OF LOSS OF VISION IN THE RIGHT EYE. RECOMMENDATIONS: 1. Continue aspirin a day. 2. MRI failed to show any acute stroke and symptoms are still there, which suggests that there is a n ongoing process. I would suspect possibly local eye problem such as retinal detachment or bleedin g. No clear evidence of a stroke. Thank you for the consult. We will follow him along with you. We will also go ahead and order a CT angiogram.
[2016-10-11] MEDS ORDERED: TEMAZEPAM 15 MG CAPSULE PO PRN (23:47)
[2016-10-12 04:45] LABS: Basophils # 0.1 10*3/uL (0.0-0.2); Basophils % 0.5 % (0.0-0.8); Eosinophils # 0.2 10*3/uL (0.0-0.87); Hematocrit 32.6 VOL% (42.0-52.0); Hemoglobin 10.4 GM/DL (14.0-18.0); Immature Granulocytes Absolute 0.15 #; Lymphocytes # 1.3 10*3/uL (1.4-4.0); Lymphocytes % 8.5 % (21.2-54.2); Mean Corpuscular HGB Conc 31.9 GM/DL (32-36); Mean Corpuscular Hemoglobin 27 PG (27-34); Mean Corpuscular Volume 84.7 FL (87-102); Monocytes # 1.2 10*3/uL (0.11-0.8); Monocytes % 7.7 % (1.7-12.7); Neutrophils # 12.6 10*3/uL (1.4-7.4); Neutrophils % 81.3 % (38.7-73.9); Platelet Count 349 T/CUMM (130-400); Red Blood Count 3.85 MC/CUMM (3.8-5.5); Red Cell Distribution Width 15.6 % (9.3-17.3); White Blood Count 15.4 T/CUMM (4-12)
[2016-10-12 05:32] LABS: Calcium 8.4 MG/DL (8.5-10.1); Osmolality,Calculated 277.5 MOS/KG (273-304); Potassium 4.9 MMOL/L (3.5-5.1)
--- NOTE | 2016-10-12 09:06 | Vascular Surgery Consult Note ---
History of Present Illness Chief complaint: right amaurosis fugax History of present illness: Mr. Aguilera is a 76 year old male Mr. Sanjay Aguilera is a 76-year-old man who was recently hospitalized with a severe pancreatitis and hemorrhagic pancreatitis. Discharged home and had the sudden onset of temporary blindness of the right eye. Dr. Moore is evaluated his retina and is seen no Hollenhorst plaques or obvious clot within the retinal artery and did not describe any other retinal pathology. As I stated Mr. Aguilera states that his vision has returned. MRI MRA and CT angiograms did not indicate significant right carotid disease but does show significant left internal carotid artery stenosis that is not critical. There did not appear to be any symptoms correlated with left internal carotid artery disease. The question of temporal arteritis has been raised but his inflammatory markers are mild and are consistent with what we would expect with the resolving pancreatitis. Mr. Aguilera does not have a headache and no temporal tenderness. As discussed with not to press the temporal arteritis is unlikely because of his amaurosis. Also do not believe that we should consider left carotid endarterectomy at this time due to the risks of hemorrhage in his retroperitoneum again. I have asked nursing staff to give Mr. Aguilera a [employer] patient information booklet on carotid disease and for him to review I would like to see him in the office in approximately 1 month to discuss considering a left carotid endarterectomy. Home Medications Medication Instructions Recorded Confirmed Type Allopurinol 200 mg PO DAILY 09/25/16 10/11/16 History Aspirin [Aspirin EC] 81 mg PO DAILY 09/25/16 10/11/16 History Cholecalciferol [Vitamin D3] 1,000 unit PO BEDTIME 09/25/16 10/11/16 History Colchicine [Colcrys] 0.6 mg PO Q6H PRN 09/25/16 10/11/16 History Diclofenac 1% Gel [Voltaren 1% Gel] 1 applic TOP QID PRN 09/25/16 10/11/16 History Dorzolamide HCl/Timolol Maleat 1 drop BOTH EYES BEDTIME 09/25/16 10/11/16 History [Dorzolamide/Timolol Oph Soln] Hydrocodone/Acetaminophen [[place] 1 each PO Q6H PRN 09/25/16 10/11/16 History 7.5-325 Tablet] Levothyroxine Tab [Synthroid Tab] 50 mcg PO DAILY 09/25/16 10/11/16 History Metoprolol Tartrate Tab [Lopressor 100 mg PO BID 09/25/16 10/11/16 History Tab] [place]-3 Fatty Acids [Fish Oil 1,000 mg PO BID 09/25/16 10/11/16 History Concentrate] Pantoprazole Tab [Protonix Tab] 40 mg PO DAILY 09/25/16 10/11/16 History Pitavastatin [Livalo] 2 mg PO BEDTIME 09/25/16 10/11/16 History Terazosin [Hytrin] 5 mg PO BEDTIME 09/25/16 10/11/16 History amLODIPine [Norvasc] 10 mg PO DAILY 09/25/16 10/11/16 History Ciprofloxacin Tab [Cipro Tab] 500 mg PO BID #14 tablet 10/08/16 10/11/16 Rx Cyclobenzaprine [Flexeril] 10 mg PO BEDTIME PRN 10/11/16 10/11/16 History Allergies Allergy/AdvReac Type Severity Reaction Status Date / Time Penicillins Allergy RASH Verified 09/25/16 09:24 Medical,Surgical,& Family Hx - Medical History Cardio: History of: Hypertension (10-15 years duration) Neurology: No history of: Seizures HEENT: History of: Eye Problem, Glaucoma No history of: Ear Problem, Dental Problems, Oral Cancer, HEENT Problems Endocrine: History of: Dyslipidemia, Thyroid Disorder (Chronic thyroid replacement) No history of: Adrenal Disease, Diabetes Mellitus (IDDM), Diabetes Mellitus ( NIDDM), Endocrine Cancer, Endocrine Problems Rheumatology: History of;: Gout (He is on allopurinol with as needed colchicine) No history of;: Fibromyalgia, Myasthenia Gravis, Rheumatoid Arthritis, Rheumatological Problems Renal: No history of: Renal (Kidney) Cancer, Dialysis, Renal Failure, Renal Problems Genitourinary: History of: Problems (Apparently there is a previously identified perinephric lesion) No history of: Bladder Problem, Kidney Stones, Prostate Problems, Recurring Urinary Tract Infections, Genitourinary Cancer Gastrointestinal: History of: Pancreatitis, GI Problems (He denies symptoms but is on Protonix chronically) No history of: Hepatitis, Liver Problems, Polyps, Ulcerative Colitis Musculoskeletal: History of: Back/Neck Problems, Degenerative Disk Disease No history of: Amputation, Osteoporosis, Musculoskeletal Cancer, Musculoskeletal Problems Hematology: History of: Blood Disorders (DVT (5+ years ago)) No history of: Anemia, Bleeding Problems, Clotting Problems, Sickle Cell Disease, Hematologic Cancer - Surgical History Cardiac Surgeries: Patient Denies: Femoral-Popliteal Bypass Graft, Cardiac Catheterization, Cardiac Surgery, Carotid Endarterectomy, Internal Defibrillator, Vascular Access Devices Thoracic Surgeries: Patient denies;: Kidney (Renal Surgery), Lithotripsy, Nephrectomy, Organ Transplant, Lobectomy HEENT Surgeries: Surgical HX of: Eye Surgery (Cataracts are) Patient denies: Carotid Endarterectomy, Thyroid Surgery, Tonsilectomy & Adenoidectomy Abdominal Surgeries: Surgical HX of: Cholecystectomy (June 2016), Colonoscopy Patient denies: Appendectomy, Gastric Bypass Surgery, Hernia Repair, Splenectomy Comment Only: EGD (could not remember) Reproductive Surgeries: Patient denies;: Cystoscopy, Genitourinary Surgery Orthopedic Surgeries: Surgical HX of;: Spinal Surgery (Lumbar) Patient denies;: Implanted Devices, Orthopedic Surgery, Total Hip Replacement , Total Knee Replacement - Family History Family History: Reports;: Family Cancer (sister(colon), mother(liver)), Family Hypertension (mother, father) - Social History Smoking Status: Never smoker Frequency of Alcohol Use: None Type of Drug Use: None Exam - Constitutional Vitals: Period Temp Pulse Resp BP Sys/Philippe Pulse Ox Last 24 Hr 97.5 F-99.5 F 66-92 16-20 116-152/56-75 92-98 Quality Measures - VTE Contraindication to Pharmacological VTE Prophylaxis: Clinical assessment deems Pt at low risk, no prophalaxis needed - Stroke Onset of Symptoms Date: 10/10/16 Results - Labs CBC & BMP: 10/12/16 04:03 10/12/16 04:03
[2016-10-12] MEDS: amLODIPine 10 MG TABLET PO SCH (10:30)
[2016-10-12] MEDS: ALLOPURINOL 100 MG TABLET PO SCH (10:31)
[2016-10-12] MEDS: PANTOPRAZOLE 40 MG TABLET PO SCH (10:31)
[2016-10-12] MEDS: LEVOTHYROXINE 50 MCG TABLET PO SCH (10:31)
[2016-10-12] MEDS: ASPIRIN EC 81 MG TABLET PO SCH (10:31)
[2016-10-12] MEDS: METOPROLOL TARTRATE 100 MG TABLET PO SCH (10:31)
[2016-10-12] MEDS: OMEGA 3 ACID ETHYL ESTERS 1 GM CAPSULE PO SCH (10:32)
[2016-10-12 11:48] VITALS: BP 146/76
--- NOTE | 2016-10-12 12:18 | Discharge Summary ---
Hospital Course - Hospital Course Hospital Course: Mr. Aguilera presented with transient sudden visual loss of the right eye. Head CT in the ER was unremarkable. He was seen by ophthalmology and had a retinal exam which was unremarkable. Patient had a workup for potential TIA versus CVA which included a carotid ultrasound, brain MRI, head MRA and neck MRA. Carotid ultrasound revealed left-sided disease greater than 70%. Brain MRI was unremarkable and head and neck MRA confirmed carotid disease on the left side. Next CTA was also performed which confirmed about 75% disease. Surgery was consulted and recommended to hold off on any intervention because his carotid disease given his recent hemorrhagic pancreatitis. There was potential concern for temporal arteritis neurology was consulted and recommended continuing his aspirin. Mr. Aguilera was otherwise stable and back to baseline. He will follow-up with neurology and surgery as an outpatient. By discharge he had met maximum benefit of hospitalization. I spent 36 minutes coordinating this discharge. - Time spent with patient Time with patient DS: Greater than 30 minutes Diagnosis - Discharge Diagnosis (1) Amaurosis fugax of left eye Status: Acute (2) Carotid stenosis Status: Acute (3) BPH (benign prostatic hyperplasia) Status: Acute (4) Glaucoma Status: Acute (5) Gout Status: Acute (6) Hypertension Status: Chronic Specialty Discharge - Follow Up or Referrals Follow up with: Camden Castelan MD [Physician] - 11/12/16 2:15 pm Discharge Plan - Discharge Data Disposition: Disch To Home/Self Care Condition at Discharge: Stable Discharge Diet: advance to your usual diet Activity: resume usual activities as tolerated - Discharge Medications Continue amLODIPine [Norvasc] 10 mg PO DAILY Cholecalciferol [Vitamin D3] 1,000 unit PO BEDTIME Colchicine [Colcrys] 0.6 mg PO Q6H PRN PRN Reason: Gout Diclofenac 1% Gel [Voltaren 1% Gel] 1 applic TOP QID PRN PRN Reason: KNEE Terazosin [Hytrin] 5 mg PO BEDTIME Pantoprazole Tab [Protonix Tab] 40 mg PO DAILY Levothyroxine Tab [Synthroid Tab] 50 mcg PO DAILY Pitavastatin [Livalo] 2 mg PO BEDTIME [place]-3 Fatty Acids [Fish Oil Concentrate] 1,000 mg PO BID Aspirin [Aspirin EC] 81 mg PO DAILY Allopurinol 200 mg PO DAILY Dorzolamide HCl/Timolol Maleat [Dorzolamide/Timolol Oph Soln] 1 drop BOTH EYES BEDTIME Ciprofloxacin Tab [Cipro Tab] 500 mg PO BID #14 tablet Cyclobenzaprine [Flexeril] 10 mg PO BEDTIME PRN PRN Reason: Muscle Spasm Hydrocodone/Acetaminophen [[place] 7.5-325 Tablet] 1 each PO Q6H PRN PRN Reason: Pain Metoprolol Tartrate Tab [Lopressor Tab] 100 mg PO BID - Follow Up or Referral Follow Up: Camden Castelan MD [Physician] - 11/12/16 2:15 pm Sukumar Artis MD [Physician] - 1 Month - Forms/Instructions Exam - Constitutional Vitals: Period Temp Pulse Resp BP Sys/Philippe Pulse Ox Last 24 Hr 97.5 F-99.5 F 63-92 16-20 116-152/56-76 92-98 General appearance: normal weight, no acute distress - Head Head exam: Present: normal inspection, normocephalic, atraumatic - Eye Eye exam: Present: EOMI Pupils: Present: RAÚL - ENT ENT exam: Present: normal exam - Neck Neck exam: Present: normal inspection - Respiratory Respiratory exam: Present: clear to auscultation bilaterally. Absent: accessory muscle use, rales, rhonchi - Cardiovascular Cardiovascular exam: Present: regular rate and rhythm. Absent: bradycardia, irregular rhythm, systolic murmur - GI/Abdominal GI/Abdominal exam: Present: normal bowel sounds. Absent: ascites, distended - Extremities Exam Extremities exam: Present: normal inspection Discharge Results Labs on day of discharge: Labs from last 24 hours 10/12/16 10/12/16 10/12/16 04:17 04:03 04:03 WBC 15.4 H RBC 3.85 Hgb 10.4 L Hct 32.6 L MCV 84.7 L MCH 27 MCHC 31.9 L RDW 15.6 Plt Count 349 MPV 12.0 Neut % (Auto) 81.3 H Lymph % (Auto) 8.5 L [place] % (Auto) 7.7 Eos % (Auto) 1.0 Baso % (Auto) 0.5 Neut # (Auto) 12.6 H Lymph # (Auto) 1.3 L [place] # (Auto) 1.2 H Eos # (Auto) 0.2 Baso # (Auto) 0.1 Immature Gran % 1.0 Nucleated RBC % 0.0 Immature Gran # 0.15 Nucleated RBCs # 0.00 Sodium 139 Potassium 4.9 Chloride 103 Carbon Dioxide 24 Anion Gap 16.9 H BUN 14 Creatinine 1.30 GFR Calculation 65 BUN/Creatinine Ratio 10.00 Glucose 100 POC Glucose 119 H Calculated Osmolality 277.5 Calcium 8.4 L DS: Provider Date of admission: 10/11/16 00:52 Primary care physician: . No PCP Attending physician on admission: Steven Rodriguez MD Consults: 10/11/16 11:54 Consult to Physician [CONS] Routine Comment: stroke with visual field loss Consulting Provider: Sukumar Artis 10/11/16 11:56 Consult to Physician [CONS] Routine Comment: Carotid disease with stroke sx's Consulting Provider: Camden Castelan Person Notified: liana Consult Notification Comment: called [facility] consult to Liana she stated Dr. Moore office called her. Discharging clinician: Erica Sanchez MD Expected date of discharge: 10/12/16
== END 2016-10-12 13:50 | disposition home or self-care (01) ==
LOC: N.ED 22:38 → N.EDINP 22:38 → SUATTDRO 10-11 00:52 → N.2E 10-11 02:05
PROVIDERS: ADMIT Family Medicine; ATTEND Internal Medicine

== ENCOUNTER 2022-04-12 11:39 | Inpatient (IN) ==
[2022-04-12] MEDS ORDERED: KETOROLAC 15 MG/1 ML VIAL IV PRN (16:35)
[2022-04-12] MEDS ORDERED: HYDROmorphone 1 MG/1 ML SYRINGE IV PRN (16:35)
[2022-04-12] MEDS ORDERED: ONDANSETRON 4 MG/2 ML VIAL IV PRN (16:35)
[2022-04-12] MEDS ORDERED: INFLUENZA VIRUS VACCINE 0.5 ML SYRINGE IM ONE (16:41)
[2022-04-12 16:57] LABS: Basophils % 0.4 % (0.0-0.8); Eosinophils # 0.1 10*3/uL (0.0-0.87); Eosinophils % 1.3 % (0.00-10.9); Hematocrit 38.7 VOL% (42.0-52.0); Immature Granulocytes % 1.3 %; Immature Granulocytes Absolute 0.07 #; Lymphocytes # 0.4 10*3/uL (1.4-4.0); Lymphocytes % 7.4 % (21.2-54.2); Mean Corpuscular HGB Conc 33.6 GM/DL (32-36); Mean Corpuscular Volume 86.4 FL (87-102); Mean Platelet Volume 11.6 FL (9.6-12.0); Monocytes # 0.4 10*3/uL (0.11-0.8); Monocytes % 7.8 % (1.7-12.7); Neutrophils % 81.8 % (38.7-73.9); Platelet Count 147 T/CUMM (130-400); Red Blood Count 4.48 MC/CUMM (3.8-5.5); Red Cell Distribution Width 13.6 % (9.3-17.3); White Blood Count 5.4 T/CUMM (4-12)
[2022-04-12] MEDS: LACTATED RINGERS 1,000 ML IV SCH (17:00)
[2022-04-12 17:28] LABS: Albumin 3.5 G/DL (3.4-5.0); Bilirubin,Total 0.6 MG/DL (0.20-1.00); Calcium 8.1 MG/DL (8.5-10.1); Osmolality,Calculated 278.4 MOS/KG (273-304); Potassium 2.6 MMOL/L (3.5-5.1); Total Protein 7.3 G/DL (6.4-8.2)
[2022-04-12] MEDS ORDERED: POTASSIUM CHLORIDE 20 MEQ TABLET PO PRN (17:57)
[2022-04-12] MEDS: POTASSIUM CHLORIDE RIDER 10 MEQ/100 ML PREMIX IV PRN ×2 (18:09→22:05)
[2022-04-12] MEDS: DORZOLAMIDE/TIMOLOL OPH SOLN 10 ML BOTTLE BOTH EYES SCH (23:00)
[2022-04-12] MEDS: METOPROLOL TARTRATE 100 MG TABLET PO SCH (23:03)
[2022-04-13] MEDS: ACETAMINOPHEN 325 MG TABLET PO PRN ×2 (00:25→13:32)
[2022-04-13] MEDS: POTASSIUM CHLORIDE RIDER 10 MEQ/100 ML PREMIX IV PRN ×3 (00:25→03:16)
[2022-04-13 05:33] LABS: Basophils % 0.2 % (0.0-0.8); Eosinophils % 0.4 % (0.00-10.9); Hematocrit 37.4 VOL% (42.0-52.0); Hemoglobin 12.5 GM/DL (14.0-18.0); Immature Granulocytes Absolute 0.05 #; Lymphocytes # 0.6 10*3/uL (1.4-4.0); Mean Corpuscular HGB Conc 33.4 GM/DL (32-36); Mean Corpuscular Volume 86.8 FL (87-102); Mean Platelet Volume 11.4 FL (9.6-12.0); Monocytes # 0.4 10*3/uL (0.11-0.8); Monocytes % 8.7 % (1.7-12.7); Neutrophils % 76.7 % (38.7-73.9); Platelet Count 142 T/CUMM (130-400); Red Blood Count 4.31 MC/CUMM (3.8-5.5); Red Cell Distribution Width 13.7 % (9.3-17.3); White Blood Count 4.9 T/CUMM (4-12)
[2022-04-13 05:57] LABS: Albumin 3.2 G/DL (3.4-5.0); Bilirubin,Total 0.6 MG/DL (0.20-1.00); Osmolality,Calculated 279.3 MOS/KG (273-304); Potassium 3.4 MMOL/L (3.5-5.1); Total Protein 6.6 G/DL (6.4-8.2)
[2022-04-13] MEDS: LACTATED RINGERS 1,000 ML IV SCH ×2 (07:24→15:19)
[2022-04-13] MEDS: LEVOTHYROXINE 50 MCG TABLET PO SCH (07:30)
[2022-04-13] MEDS: METOPROLOL TARTRATE 100 MG TABLET PO SCH ×2 (08:48→20:26)
[2022-04-13] MEDS ORDERED: PANTOPRAZOLE 40 MG TABLET PO SCH (09:00)
[2022-04-13] MEDS: ASPIRIN EC 81 MG TABLET PO SCH (09:36)
[2022-04-13] MEDS: CLOPIDOGREL 75 MG TABLET PO SCH (09:37)
[2022-04-13] MEDS: OMEGA 3 ACID ETHYL ESTERS 1 GM CAPSULE PO SCH ×2 (09:37→20:26)
[2022-04-13] MEDS: DOXAZOSIN 4 MG TABLET PO SCH ×2 (09:37→20:29)
[2022-04-13] MEDS: MULTIVITAMIN (OCUVITE) TABLET PO SCH (09:37)
[2022-04-13] MEDS: PANTOPRAZOLE 40 MG TABLET PO SCH (09:37)
[2022-04-13] MEDS: ENOXAPARIN 40 MG/0.4 ML SYRINGE SUBCUT SCH (10:23)
[2022-04-13] MEDS ORDERED: BENZONATATE 100 MG CAPSULE PO PRN (17:10)
[2022-04-13] MEDS: DORZOLAMIDE/TIMOLOL OPH SOLN 10 ML BOTTLE BOTH EYES SCH (20:25)
[2022-04-13] MEDS ORDERED: CHOLECALCIFEROL 1,000 UNIT TABLET PO SCH (21:00)
[2022-04-13] MEDS ORDERED: ATORVASTATIN 40 MG TABLET PO SCH (21:00)
[2022-04-14] MEDS: LEVOTHYROXINE 50 MCG TABLET PO SCH (05:27)
[2022-04-14] MEDS: OMEGA 3 ACID ETHYL ESTERS 1 GM CAPSULE PO SCH (09:34)
[2022-04-14] MEDS: ENOXAPARIN 40 MG/0.4 ML SYRINGE SUBCUT SCH (09:34)
[2022-04-14] MEDS: DOXAZOSIN 4 MG TABLET PO SCH (09:34)
[2022-04-14] MEDS: METOPROLOL TARTRATE 100 MG TABLET PO SCH (09:34)
[2022-04-14] MEDS: ASPIRIN EC 81 MG TABLET PO SCH (09:34)
[2022-04-14] MEDS: MULTIVITAMIN (OCUVITE) TABLET PO SCH (09:34)
[2022-04-14] MEDS: CLOPIDOGREL 75 MG TABLET PO SCH (09:35)
[2022-04-14] MEDS: PANTOPRAZOLE 40 MG TABLET PO SCH (09:35)
[2022-04-14 11:04] VITALS: BP 148/70
== END 2022-04-14 13:30 | disposition home or self-care (01) | DRG 390 ==
LOC: N.3E 15:56
PROVIDERS: ADMIT Surgery; ATTEND Surgery